=== PATIENT | male | born 1965 | race Caucasian/White ===

== ENCOUNTER → 2017-01-17 | Outpatient (CLI) | payer OTHER ==
[~2017-01-17] MED LIST: ALPR1TAB3 PO; BUPR150T3 PO; ESCI20TA PO; LOSA25TA PO; losartan potassium PO
--- NOTE | 2017-01-18 20:03 | EKG ---
Date Performed: 01/17/2017 Time Performed: 12:07:32 PTAGE: 51 years EKG: Atrial fibrillation with RVR Left axis deviation Inferior infarct - age undetermined Abnorm al ECG NO PREVIOUS TRACING DOCTOR: Sha Hawkins Interpretating Date/Time 01/18/2017 20:03:22
== END ==
LOC: HCAV 11:53
PROVIDERS: ATTEND Family Medicine
DX: R06.09 Other forms of dyspnea (principal)
CPT/HCPCS: 93005

== ENCOUNTER 2017-01-19 04:39 | Inpatient (IN) | payer OTHER ==
[~2017-01-19] VITALS: Ht 180.3 cm; Wt 140.0 kg
[2017-01-19] VITALS (28 sets, daily range): BP systolic 86–177; BP diastolic 50–98; PULSE 67–158; RESP 16–24; TEMP 97.9–98.8; O2SAT 93–96
[2017-01-19] MEDS ORDERED: IOHEXOL 350 MG/ML 10 ML VIAL (for RAD DIAG) IVCONTRAST ONE (04:40)
[2017-01-19] MEDS ORDERED: ASPIRIN 81 MG CHEW TAB PO ONE (05:15)
[2017-01-19] MEDS ORDERED: SODIUM CHLORIDE 0.9% FLUSH 10 ML FLUSH IVF PRN (05:15)
[2017-01-19] MEDS ORDERED: DILTIAZEM HCL 25 MG/5 ML VIAL IV ONE ×2 (05:15→06:00)
[2017-01-19] MEDS ORDERED: DILTIAZEM INJ 125 MG in SODIUM CHLORIDE 0.9% INJ 100 ML IV PRN (05:15)
--- NOTE | 2017-01-19 05:21 | PD ---
HPI Chief Complaint: Respiratory Distress Time Seen by Provider: 05:01 Travel History International Travel<30 days: No Contact w/Intl Traveler<30days: No Traveled to known affect area: No History of Present Illness HPI The patient is a 51-year-old male who presents to the emergency department for 1 week of shortness of breath and insomnia. The patient has a one-week history of difficulty sleeping secondary to shortness of breath and diaphoresis. The patient states he will awaken in the morning with shortness of breath and also notes that he is somewhat diaphoretic. The patient does have a history of sleep apnea, has been using a CPap machine since last March with good results. However, over the last week he has had difficulty sleeping with the CPAP in place secondary to shortness of breath. The patient also complains of occasional chest tightness and heaviness with his shortness of breath, denies any nausea or vomiting. The patient had an outpatient EKG yesterday that was ordered by his primary physician, Dr. Joey Haro. The patient does have a history of previous cardiac catheterization several years ago up [place], denies any known history of coronary artery disease. He does have a history of hypertension and recently had his Norvasc discontinued secondary to lower extremity edema, but cannot recall the name of his new medication. He denies any known history of congestive heart failure, pulmonary embolism, DVT, or arrhythmia. 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 Symptoms are moderate, there are no alleviating or exacerbating factors. PFSH Past Medical History Medical History: Denies Significant Hx Anxiety: Yes Cardiac Catheterization: Yes (2007) Cardiomyopathy: Yes (was told recently that he had an enlarged heart-needs an echo (01/19)) GERD: Yes Hypertension: Yes Respiratory: Yes (pt gets SOB w/movement ) Sleep Apnea: Yes Tetanus Vaccination: Unknown Past Surgical History Surgical History: No Previous Surgery Appendectomy: Yes Gynecologic Surgery: Yes (vasectomy) Social History Alcohol Use: No Tobacco Use: No Substance Use: No Allergies-Medications (Allergen,Severity, Reaction): Coded Allergies: No Known Allergies (Unverified , 01/19/17) Reported Meds & Prescriptions Reported Meds & Active Scripts Active Reported Alprazolam 1 Mg Tab 1 Mg PO QHS PRN Escitalopram (Escitalopram Oxalate) 20 Mg Tab 20 Mg PO QHS Bupropion HCl ER 24 HR (Bupropion HCl) 150 Mg Tab 150 Mg PO DAILY [losartan potassium] 25 Mg PO DAILY Review of Systems Except as stated in HPI: all other systems reviewed are Neg General / Constitutional: No: Fever Cardiovascular: Positive: Chest Pain or Discomfort, Tachycardia, Diaphoresis Respiratory: Positive: Shortness of Breath Gastrointestinal: No: Nausea, Vomiting, Abdominal Pain Musculoskeletal: Positive: Edema Physical Exam Narrative GENERAL: Awake, alert, pleasant 51-year-old male who appears his stated age and is slightly diaphoretic. SKIN: Focused skin assessment warm, slightly diaphoretic. HEAD: Atraumatic. Normocephalic. EYES: Pupils equal and round. No scleral icterus. No injection or drainage. ENT: No nasal bleeding or discharge. Mucous membranes pink and moist. NECK: Trachea midline. No JVD. CARDIOVASCULAR: Irregularly irregular and tachycardic with a heart rate in the 170s. RESPIRATORY: No accessory muscle use. Minimally diminished breath sounds in the bases. GASTROINTESTINAL: Abdomen soft, obese, no rebound tenderness. MUSCULOSKELETAL: No obvious deformities. No clubbing. No cyanosis. Trace lower extremity pitting edema. NEUROLOGICAL: Awake and alert. No obvious cranial nerve deficits. Motor grossly within normal limits. Normal speech. PSYCHIATRIC: Appropriate mood and affect; insight and judgment normal. Data Data Last Documented VS Vital Signs Date Time Temp Pulse Resp B/P (MAP) Pulse Ox O2 Delivery O2 Flow Rate FiO2 01/19/17 06:29 119 20 122/75 (91) 96 Nasal Cannula 2.00 01/19/17 04:43 97.9 Orders Orders Electrocardiogram (01/19/17 05:09) B-Type Natriuretic Peptide (01/19/17 05:09) Ckmb (Isoenzyme) Profile (01/19/17 05:09) Complete Blood Count With Diff (01/19/17 05:09) Comprehensive Metabolic Panel (01/19/17 05:09) Magnesium (Mg) (01/19/17 05:09) Prothrombin Time / Inr (Pt) (01/19/17 05:09) Act Partial Throm Time (Ptt) (01/19/17 05:09) Troponin I (01/19/17 05:09) Chest, Single Ap (01/19/17 05:09) Ecg Monitoring (01/19/17 05:09) Bilateral Bp Monitoring (01/19/17 05:09) Iv Access Insert/Monitor (01/19/17 05:09) Oximetry (01/19/17 05:09) Oxygen Administration (01/19/17 05:09) Aspirin Chew (Aspirin Chew) (01/19/17 05:15) Sodium Chloride 0.9% Flush (Ns Flush) (01/19/17 05:15) Diltiazem Inj (Cardizem Inj) (01/19/17 05:15) Diltiazem Inj (Cardizem Inj) (01/19/17 05:15) D-Dimer (01/19/17 05:09) Thyroid Stimulating Hormone (01/19/17 05:09) Diltiazem Inj (Cardizem Inj) (01/19/17 06:00) Sodium Chlorid 0.9% 500 Ml Inj (Ns 500 M (01/19/17 06:00) Ct Pulmonary Angiogram (01/19/17 ) CKMB (01/19/17 05:20) CKMB% (01/19/17 05:20) Admit Order (Ed Use Only) (01/19/17 06:33) Admit To Inpatient (01/19/17 ) Vital Signs (Adult) Q4H (01/19/17 06:34) Activity Oob With Assistance (01/19/17 06:34) Intermediate Designer / Telemetry .CONTINUOUS (01/19/17 06:34) Diet Heart Healthy (01/19/17 Breakfast) Sodium Chloride 0.9% Flush (Ns Flush) (01/19/17 06:45) Sodium Chloride 0.9% Flush (Ns Flush) (01/19/17 09:00) Basic Metabolic Panel (Bmp) (01/20/17 06:00) Complete Blood Count With Diff (01/20/17 06:00) Creatine Kinase (Cpk) (01/19/17 11:30) Creatine Kinase (Cpk) (01/19/17 17:30) Troponin I (01/19/17 11:30) Troponin I (01/19/17 17:30) Electrocardiogram (01/19/17 11:30) Electrocardiogram (01/19/17 17:30) Naloxone Inj (Narcan Inj) (01/19/17 06:45) Inpatient Certification (01/19/17 ) Labs Laboratory Tests Test 01/19/17 05:20 White Blood Count 10.5 TH/MM3 Red Blood Count 5.65 MIL/MM3 Hemoglobin 14.9 GM/DL Hematocrit 45.7 % Mean Corpuscular Volume 80.8 FL Mean Corpuscular Hemoglobin 26.4 PG Mean Corpuscular Hemoglobin Concent 32.6 % Red Cell Distribution Width 15.6 % Platelet Count 191 TH/MM3 Mean Platelet Volume 8.9 FL Neutrophils (%) (Auto) 74.4 % Lymphocytes (%) (Auto) 16.7 % Monocytes (%) (Auto) 6.9 % Eosinophils (%) (Auto) 1.5 % Basophils (%) (Auto) 0.5 % Neutrophils # (Auto) 7.8 TH/MM3 Lymphocytes # (Auto) 1.8 TH/MM3 Monocytes # (Auto) 0.7 TH/MM3 Eosinophils # (Auto) 0.2 TH/MM3 Basophils # (Auto) 0.1 TH/MM3 CBC Comment DIFF FINAL Differential Comment Prothrombin Time 12.0 SEC Prothromb Time International Ratio 1.1 RATIO Activated Partial Thromboplast Time 23.7 SEC D-Dimer Quantitative (PE/DVT) 1.13 MG/L FEU Blood Urea Nitrogen 15 MG/DL Creatinine 1.03 MG/DL Random Glucose 86 MG/DL Total Protein 6.5 GM/DL Albumin 3.3 GM/DL Calcium Level 8.7 MG/DL Magnesium Level 2.0 MG/DL Alkaline Phosphatase 79 U/L Aspartate Amino Transf (AST/SGOT) 70 U/L Alanine Aminotransferase (ALT/SGPT) 125 U/L Total Bilirubin 1.0 MG/DL Sodium Level 141 MEQ/L Potassium Level 3.8 MEQ/L Chloride Level 109 MEQ/L Carbon Dioxide Level 23.5 MEQ/L Anion Gap 9 MEQ/L Estimat Glomerular Filtration Rate 76 ML/MIN Total Creatine Kinase 298 U/L Creatine Kinase MB 8.9 NG/ML Troponin I 0.09 NG/ML B-Type Natriuretic Peptide 233 PG/ML Thyroid Stimulating Hormone 3rd Gen 1.980 uIU/ML MDM Medical Decision Making Medical Screen Exam Complete: Yes Emergency Medical Condition: Yes Medical Record Reviewed: Yes Interpretation(s) EKG reveals atrial fibrillation with RVR with a rate in the 170s. Last Impressions Chest X-Ray 01/19/17 [id number] Signed Impressions: Service Date/Time: December 05:45 - CONCLUSION: 1. Basilar atelectasis. No significant effusion. Arsenio Amaya MD Laboratory Tests Test 01/19/17 05:20 White Blood Count 10.5 TH/MM3 Red Blood Count 5.65 MIL/MM3 Hemoglobin 14.9 GM/DL Hematocrit 45.7 % Mean Corpuscular Volume 80.8 FL Mean Corpuscular Hemoglobin 26.4 PG Mean Corpuscular Hemoglobin Concent 32.6 % Red Cell Distribution Width 15.6 % Platelet Count 191 TH/MM3 Mean Platelet Volume 8.9 FL Neutrophils (%) (Auto) 74.4 % Lymphocytes (%) (Auto) 16.7 % Monocytes (%) (Auto) 6.9 % Eosinophils (%) (Auto) 1.5 % Basophils (%) (Auto) 0.5 % Neutrophils # (Auto) 7.8 TH/MM3 Lymphocytes # (Auto) 1.8 TH/MM3 Monocytes # (Auto) 0.7 TH/MM3 Eosinophils # (Auto) 0.2 TH/MM3 Basophils # (Auto) 0.1 TH/MM3 CBC Comment DIFF FINAL Differential Comment Prothrombin Time 12.0 SEC Prothromb Time International Ratio 1.1 RATIO Activated Partial Thromboplast Time 23.7 SEC D-Dimer Quantitative (PE/DVT) 1.13 MG/L FEU Blood Urea Nitrogen 15 MG/DL Creatinine 1.03 MG/DL Random Glucose 86 MG/DL Total Protein 6.5 GM/DL Albumin 3.3 GM/DL Calcium Level 8.7 MG/DL Magnesium Level 2.0 MG/DL Alkaline Phosphatase 79 U/L Aspartate Amino Transf (AST/SGOT) 70 U/L Alanine Aminotransferase (ALT/SGPT) 125 U/L Total Bilirubin 1.0 MG/DL Sodium Level 141 MEQ/L Potassium Level 3.8 MEQ/L Chloride Level 109 MEQ/L Carbon Dioxide Level 23.5 MEQ/L Anion Gap 9 MEQ/L Estimat Glomerular Filtration Rate 76 ML/MIN Total Creatine Kinase 298 U/L Creatine Kinase MB 8.9 NG/ML Troponin I 0.09 NG/ML B-Type Natriuretic Peptide 233 PG/ML Thyroid Stimulating Hormone 3rd Gen 1.980 uIU/ML CT pulmonary angiogram is negative for PE. Small effusions with groundglass opacity characteristic of mild edema. There is also peribronchial thickening. Differential Diagnosis Differential diagnosis includes new onset congestive heart failure, atrial fibrillation with RVR, pulmonary embolism, hyperthyroidism, electrolyte abnormality, sleep apnea, acute coronary syndrome. Narrative Course IV was established, labs are drawn and sent, and the patient was placed on cardiac telemetry monitoring and continuous pulse oximetry monitoring. EKG was ordered and interpreted. Chest x-ray was obtained. The patient was noted to be in atrial fibrillation with RVR. This is new onset atrial fibrillation for the patient, he was administered Cardizem 20 mg intravenously and placed on a Cardizem drip. TSH and d-dimer were sent to lab. The chest x-ray reveals atelectasis, no obvious effusion. D-dimer was elevated at 1.13, therefore, CT pulmonary angiogram was ordered to rule out underlying pulmonary embolism. The patient continued to have A. fib with RVR with a rate that varied between 1:30 and 150, therefore, was administered a second dose of Cardizem. The patient will be admitted to the medical service, [facility], on a Cardizem drip. Therefore, the on-call medical service was paged for admission. The patient's troponin was positive at 0.09, may be rate related secondary to new onset A. fib with RVR. The patient did receive aspirin. A call was placed to [facility] for admission. The CT pulmonary angiogram will be evaluated in the emergency department prior to the patient going to the floor in case the patient needs further anticoagulation. CT pulmonary angiogram was negative. Patient will be admitted to [facility]. Critical Care Narrative Aggregate critical care time was 40 minutes. Time to perform other separately billable procedures was not included in the critical care time. My time did not include minutes spent treating any other patients simultaneously or on activities that did not directly contribute to the patient's treatment. The services I provided to this patient were to treat and/or prevent clinically significant deterioration that could result in: Pulmonary edema, congestive heart failure, arrhythmia, hypoxia, . I provided critical care services requiring my management, as noted below: Chart data review, documentation time, medication orders and management, vital sign assessments/reviewing monitor data, ordering and reviewing lab tests, ordering and interpreting/reviewing x-rays and diagnostic studies, care of the patient and discussion of the patient with the admitting physicians. Physician Communication Physician Communication The on-call medical service was paged for admission. Diagnosis Primary Impression: Atrial fibrillation with RVR Additional Impression: Elevated troponin Admitting Information Admitting Physician Requests: Admit Condition: Stable Fawad Garcias MD Jan 19, 2017 05:21
[2017-01-19 05:34] LABS: AUTOMATED NEUTROPHIL # 7.8 TH/MM3 (1.8-7.7); BASOPHIL # 0.1 TH/MM3 (0-0.2); BASOPHIL % 0.5 % (0.0-2.0); EOSINOPHIL # 0.2 TH/MM3 (0-0.4); EOSINOPHIL % 1.5 % (0.0-4.0); HEMATOCRIT 45.7 % (39.0-51.0); HEMO FLAGS DIFF FINAL; LYMPH % 16.7 % (9.0-44.0); LYMPHOCYTE # 1.8 TH/MM3 (1.0-4.8); MEAN CELL VOLUME 80.8 FL (80.0-100.0); MEAN CORPUSCULAR HEMOGLOBIN 26.4 PG (27.0-34.0); MEAN CORPUSCULAR HGB CONC 32.6 % (32.0-36.0); MONO % 6.9 % (0.0-8.0); NEUT % 74.4 % (16.0-70.0); PLATELET COUNT 191 TH/MM3 (150-450); RED BLOOD COUNT 5.65 MIL/MM3 (4.50-5.90); RED CELL DISTRIBUTION WIDTH 15.6 % (11.6-17.2); WHITE BLOOD COUNT 10.5 TH/MM3 (4.0-11.0)
[2017-01-19 05:55] LABS: APTT (PATIENT) 23.7 SEC (24.3-30.1); INTERNATIONAL NORMALIZED RATIO 1.1 RATIO
--- NOTE | 2017-01-19 05:56 | RADRPT ---
EXAM DATE/TIME: 01/19/2017 05:45 [facility] COMPARISON: No previous studies available for comparison. INDICATIONS : Shortness of breath. MEDICAL HISTORY : Hypertension. SURGICAL HISTORY : None. ENCOUNTER: Initial ACUITY: 1 day PAIN SCORE: 0/10 LOCATION: Bilateral chest FINDINGS: A single view of the chest demonstrates mild cardiomegaly. Tortuous aorta. Basilar density most joshua cteristic atelectasis. CONCLUSION: 1. Basilar atelectasis. No significant effusion. Arsenio Amaya MD on January 19, 2017 at 5:51 Board Certified Radiologist. This report was verified electronically.
[2017-01-19] MEDS ORDERED: SODIUM CHLORID 0.9% 500 ML INJ 500 ML IV ONE (06:00)
[2017-01-19 06:05] LABS: ANION GAP 9 MEQ/L (5-15); AST (GOT) 70 U/L (15-37); BICARBONATE 23.5 MEQ/L (21.0-32.0); BLOOD UREA NITROGEN 15 MG/DL (7-18); CHLORIDE 109 MEQ/L (98-107); GLOMERULAR FILTRATION RATE 76 ML/MIN (>89); POTASSIUM 3.8 MEQ/L (3.5-5.1); SODIUM (NA) 141 MEQ/L (136-145)
[2017-01-19 06:06] LABS: ALT (GPT) 125 U/L (12-78)
[2017-01-19 06:15] LABS: ALKALINE PHOSPHATASE 79 U/L (45-117); CREATINE KINASE 298 U/L (39-308)
[2017-01-19 06:28] LABS: CKMB 8.9 NG/ML (0.5-3.6)
[2017-01-19] MEDS ORDERED: SODIUM CHLORIDE 0.9% FLUSH 10 ML FLUSH IV FLUSH PRN (06:45)
[2017-01-19] MEDS ORDERED: NALOXONE HCL 0.4 MG/ML AMP IV PRN (06:45)
[2017-01-19] MEDS ORDERED: BUPR150T3 PO (06:53)
[2017-01-19] MEDS ORDERED: losartan potassium PO (06:53)
[2017-01-19] MEDS ORDERED: ALPR1TAB3 PO (06:53)
[2017-01-19] MEDS ORDERED: ESCI20TA PO (06:53)
--- NOTE | 2017-01-19 06:55 | RADRPT ---
EXAM DATE/TIME: 01/19/2017 06:36 [facility] COMPARISON: No previous studies available for comparison. INDICATIONS : Shortness of breath and lower extremity swelling. IV CONTRAST: 75 cc Omnipaque 350 (iohexol) IV RADIATION DOSE: 23.25 CTDIvol (mGy) MEDICAL HISTORY : Hypertension. A-Fib. SURGICAL HISTORY : Cardiac cath. ENCOUNTER: Initial ACUITY: 1 day PAIN SCALE: 0/10 LOCATION: Bilateral chest TECHNIQUE: Volumetric scanning of the chest was performed using a pulmonary embolism protocol MIP images were re constructed. Using automated exposure control and adjustment of the mA and/or kV according to patien t size, radiation dose was kept as low as reasonably achievable to obtain optimal diagnostic quality images. DICOM format image data is available electronically for review and comparison. Follow-up recommendations for detected pulmonary nodules are based at a minimum on nodule size and pa tient risk factors according to Fleischner Society Guidelines. FINDINGS: No filling defects identified to suggest pulmonary embolic disease. Small bilateral pleural effusions are present. There is patchy airspace disease in the lungs, especia lly at the lung bases with septal thickening. There is also some peribronchial thickening. CONCLUSION: 1. Negative for pulmonary embolism. Small effusions with ground glass opacity characteristic of mild edema. There is also peribronchial thickening. Arsenio Amaya MD on January 19, 2017 at 6:46 Board Certified Radiologist. This report was verified electronically.
--- NOTE | 2017-01-19 08:18 | EKG ---
Date Performed: 01/19/2017 Time Performed: 05:33:42 PTAGE: 51 years EKG: ATRIAL FIBRILLATION WITH RAPID VENTRICULAR RESPONSE INCOMPLETE RIGHT BUNDLE BRANCH BLOCK PO SSIBLE INFERIOR MYOCARDIAL INFARCTION ABNORMAL ECG PREVIOUS TRACING : 01/17/2017 12.07 No significant change from previous tracing noted. DOCTOR: Will Kan Interpretating Date/Time 01/19/2017 08:16:58
--- NOTE | 2017-01-19 08:18 | EKG ---
Date Performed: 01/19/2017 Time Performed: 04:49:30 PTAGE: 51 years EKG: ATRIAL FIBRILLATION WITH RAPID VENTRICULAR RESPONSE INCOMPLETE RIGHT BUNDLE BRANCH BLOCK PO SSIBLE INFERIOR MYOCARDIAL INFARCTION ABNORMAL ECG NO PREVIOUS TRACING DOCTOR: Will Kan Interpretating Date/Time 01/19/2017 08:17:47
[2017-01-19] MEDS: SODIUM CHLORIDE 0.9% FLUSH 10 ML FLUSH IV FLUSH SCH ×2 (08:52→21:25)
--- NOTE | 2017-01-19 14:51 | HHI.HP ---
HPI Service [facility] Primary Care Physician Joey Mckoy Jr, MD Admission Diagnosis new onset atrial fibrillation with RVR, elevated troponin Diagnoses: (1) Essential hypertension (2) Paroxysmal atrial fibrillation with rapid ventricular response (3) Elevated troponin Chief Complaint: Shortness of breath Travel History International Travel<30 Days: No Contact w/Intl Traveler <30 Da: No Traveled to Known Affected Are: No History of Present Illness 51-year-old male with a history of hypertension, presented to the ED early this morning for evaluation of ongoing or worsening symptoms of shortness of breath 1 week duration associated with chest pressure without any pain. Patient states, around 3 AM he was having significant difficulty breathing and decided to come to the ED. This has been an ongoing problem for which patient PCP was supposed to order a 2-D echo. While in emergency department, patient was found in A. fib. This appeared to be a new diagnosis for patient and he currently denies any heart palpitation. CTA was negative for PE and chest x- ray did not reveal any pulmonary congestion. Patient had elevated cardiac enzyme and a mildly elevated BNP of 233. He denies any GI bleed. Review of Systems Except as stated in HPI: all other systems reviewed are Neg Past Family Social History Past Medical History Anxiety: Yes Cardiac Catheterization: Yes (2007) Cardiomyopathy: Yes (was told recently that he had an enlarged heart-needs an echo (01/19)) GERD: Yes Hypertension: Yes Respiratory: Yes (pt gets SOB w/movement ) Sleep Apnea: Yes Past Surgical History Appendectomy: Yes Gynecologic Surgery: Yes (vasectomy) Reported Medications Alprazolam 1 Mg Tab 1 Mg PO QHS PRN Escitalopram (Escitalopram Oxalate) 20 Mg Tab 20 Mg PO QHS Bupropion HCl ER 24 HR (Bupropion HCl) 150 Mg Tab 150 Mg PO DAILY [losartan potassium] 25 Mg PO DAILY Allergies: Coded Allergies: No Known Allergies (Unverified , 01/19/17) Family History Father has history of hypertension Social History Alcohol Use: No Tobacco Use: No Substance Use: No Physical Exam Vital Signs Vital Signs Date Time Temp Pulse Resp B/P (MAP) Pulse Ox O2 Delivery O2 Flow Rate FiO2 01/19/17 12:00 98.6 82 18 104/69 (81) 93 01/19/17 12:00 107 01/19/17 11:00 110 01/19/17 10:00 114 01/19/17 09:30 103 01/19/17 09:30 97.9 110 18 116/83 (94) 94 01/19/17 09:20 01/19/17 09:00 118 16 115/60 (78) 95 Room Air 01/19/17 08:30 118 16 131/86 (101) 95 Room Air 01/19/17 08:15 135 16 107/73 (84) 95 Room Air 01/19/17 08:00 112 16 95/69 (78) 95 Room Air 01/19/17 07:30 95 Room Air 01/19/17 07:30 141 16 121/66 (84) 95 Room Air 01/19/17 06:53 106 16 119/79 (92) 96 Nasal Cannula 2.00 01/19/17 06:29 119 20 122/75 (91) 96 Nasal Cannula 2.00 01/19/17 05:28 145 24 137/77 (97) 94 Nasal Cannula 2.00 01/19/17 05:20 158 20 177/98 (124) 95 Nasal Cannula 2.00 01/19/17 05:20 94 Nasal Cannula 2.00 01/19/17 04:43 97.9 100 20 127/86 (100) 95 Room Air Physical Exam GENERAL: This is a well-nourished, well-developed obese patient, in no apparent distress. SKIN: No rashes, ecchymoses or lesions. Cool and dry. HEAD: Atraumatic. Normocephalic. No temporal or scalp tenderness. EYES: Pupils equal round and reactive. Extraocular motions intact. No scleral icterus. No injection or drainage. ENT: Nose without bleeding, purulent drainage or septal hematoma. Throat without erythema, tonsillar hypertrophy or exudate. Uvula midline. Airway patent. NECK: Trachea midline. No JVD or lymphadenopathy. Supple, nontender, no meningeal signs. CARDIOVASCULAR: Irregular Regular rate and rhythm without murmurs, gallops, or rubs. RESPIRATORY: Clear to auscultation. Breath sounds equal bilaterally. No wheezes , rales, or rhonchi. GASTROINTESTINAL: Abdomen soft, non-tender, nondistended. No hepato-splenomegaly , or palpable masses. No guarding. MUSCULOSKELETAL: Extremities without clubbing, cyanosis, or edema. No joint tenderness, effusion, or edema noted. No calf tenderness. Negative Homans sign bilaterally. NEUROLOGICAL: Awake and alert. Cranial nerves II through XII intact. Motor and sensory grossly within normal limits. Five out of 5 muscle strength in all muscle groups. Normal speech. Laboratory Laboratory Tests Test 01/19/17 05:20 01/19/17 11:56 White Blood Count 10.5 Red Blood Count 5.65 Hemoglobin 14.9 Hematocrit 45.7 Mean Corpuscular Volume 80.8 Mean Corpuscular Hemoglobin 26.4 Mean Corpuscular Hemoglobin Concent 32.6 Red Cell Distribution Width 15.6 Platelet Count 191 Mean Platelet Volume 8.9 Neutrophils (%) (Auto) 74.4 Lymphocytes (%) (Auto) 16.7 Monocytes (%) (Auto) 6.9 Eosinophils (%) (Auto) 1.5 Basophils (%) (Auto) 0.5 Neutrophils # (Auto) 7.8 Lymphocytes # (Auto) 1.8 Monocytes # (Auto) 0.7 Eosinophils # (Auto) 0.2 Basophils # (Auto) 0.1 CBC Comment DIFF FINAL Differential Comment Prothrombin Time 12.0 Prothromb Time International Ratio 1.1 Activated Partial Thromboplast Time 23.7 D-Dimer Quantitative (PE/DVT) 1.13 Blood Urea Nitrogen 15 Creatinine 1.03 Random Glucose 86 Total Protein 6.5 Albumin 3.3 Calcium Level 8.7 Magnesium Level 2.0 Alkaline Phosphatase 79 Aspartate Amino Transf (AST/SGOT) 70 Alanine Aminotransferase (ALT/SGPT) 125 Total Bilirubin 1.0 Sodium Level 141 Potassium Level 3.8 Chloride Level 109 Carbon Dioxide Level 23.5 Anion Gap 9 Estimat Glomerular Filtration Rate 76 Total Creatine Kinase 298 227 Creatine Kinase MB 8.9 Troponin I 0.09 0.09 B-Type Natriuretic Peptide 233 Thyroid Stimulating Hormone 3rd Gen 1.980 Result Diagram: 01/19/17 0520 01/19/17 0520 Imaging Last Impressions Chest X-Ray 01/19/17 0500 Signed Impressions: Service Date/Time: December 05:45 - CONCLUSION: 1. Basilar atelectasis. No significant effusion. Arsenio Amaya MD CT Angiography 01/19/17 0000 Signed Impressions: Service Date/Time: December 06:36 - CONCLUSION: 1. Negative for pulmonary embolism. Small effusions with ground glass opacity characteristic of mild edema. There is also peribronchial thickening. Arsenio Amaya MD Caprini VTE Risk Assessment Caprini VTE Risk Assessment: No/Low Risk (score <= 1) Caprini Risk Assessment Model Point Value = 1 Point Value = 2 Point Value = 3 Point Value = 5 Age 41-60 Minor surgery BMI > 25 kg/m2 Swollen legs Varicose veins or History of unexplained or recurrent spontaneous Oral contraceptives or hormone replacement Sepsis (< 1 month) Serious lung disease, including pneumonia (< 1 month) Abnormal pulmonary function Acute myocardial infarction Congestive heart failure (< 1 month) History of inflammatory bowel disease Medical patient at bed rest Age 61-74 Arthroscopic surgery Major open surgery (> 45 min) Laparoscopic surgery (> 45 min) Malignancy Confined to bed (> 72 hours) Immobilizing plaster cast Central venous access Age >= 75 History of VTE Family history of VTE Factor V Leiden Prothrombin [id number] Lupus anticoagulant Anticardiolipin antibodies Elevated serum homocysteine Heparin-induced thrombocytopenia Other congenital or acquired thrombophilia Stroke (< 1 month) Elective arthroplasty Hip, pelvis, or leg fracture Acute spinal cord injury (< 1 month) Prophylaxis Regimen Total Risk Factor Score Risk Level Prophylaxis Regimen 0-1 Low Early ambulation 2 Moderate Order ONE of the following: *Sequential Compression Device (SCD) *Heparin 5000 units SQ BID 3-4 Higher Order ONE of the following medications: *Heparin 5000 units SQ TID *Enoxaparin/Lovenox 40 mg SQ daily (WT < 150 kg, CrCl > 30 mL/min) *Enoxaparin/Lovenox 30 mg SQ daily (WT < 150 kg, CrCl > 10-29 mL/min) *Enoxaparin/Lovenox 30 mg SQ BID (WT < 150 kg, CrCl > 30 mL/min) AND/OR *Sequential Compression Device (SCD) 5 or more Highest Order ONE of the following medications: *Heparin 5000 units SQ TID (Preferred with Epidurals) *Enoxaparin/Lovenox 40 mg SQ daily (WT < 150 kg, CrCl > 30 mL/min) *Enoxaparin/Lovenox 30 mg SQ daily (WT < 150 kg, CrCl > 10-29 mL/min) *Enoxaparin/Lovenox 30 mg SQ BID (WT < 150 kg, CrCl > 30 mL/min) AND *Sequential Compression Device (SCD) Assessment and Plan Problem List: (1) Paroxysmal atrial fibrillation with rapid ventricular response ICD Code: I48.0 - Paroxysmal atrial fibrillation (2) Essential hypertension ICD Code: I10 - Essential (primary) hypertension (3) Elevated troponin ICD Code: R74.8 - Abnormal levels of other serum enzymes Status: Acute Assessment and Plan 51-year-old man with Paroxysmal atrial fibrillation with RVR Continue ACS ruled out per protocol with serial cardiac enzyme and EKGs Thyroid dysfunction ruled out with normal TSH Continue Cardizem drip and start aspirin 81 mg daily Check 2-D echo, lipid profile and Lexiscan stress in a.m. Consult cardiology Dyspnea Mildly elevated BNP Chest x-ray noted and review by me with no effusion CTA noted and review by me with no PE Check 2-D echo and continue ACS rule out per protocol Cardiomyopathy 2-D echo pending Lexiscan stress test in a.m. Cardiology consultation pending Essential hypertension Currently on Cardizem drip Obstructive sleep apnea Okay for patient to use on BiPAP DVT prophylaxis: Bilateral SCDs Code Status Full code Discussed Condition With Patient Physician Certification 2 Midnight Certification Type: Admission for Inpatient Services Order for Inpatient Services The services are ordered in accordance with Medicare regulations or non- Medicare payer requirements, as applicable. In the case of services not specified as inpatient-only, they are appropriately provided as inpatient services in accordance with the 2-midnight benchmark. Estimated LOS (days): 2 days is the estimated time the patient will need to remain in the hospital, assuming treatment plan goals are met and no additional complications. Post-Hospital Plan: Not yet determined Bhanu Villagomez MD Jan 19, 2017 14:51
[2017-01-19] MEDS ORDERED: ZOLPIDEM TARTRATE 5 MG TAB PO PRN (15:00)
[2017-01-19] MEDS: FUROSEMIDE 40 MG TAB PO SCH (16:19)
[2017-01-19] MEDS: ALPRAZolam 1 MG TAB PO PRN (16:19)
--- NOTE | 2017-01-19 17:06 | MB ---
cc: KAMALA MEDINA DATE OF CONSULTATION 01/19/17 HISTORY OF PRESENT ILLNESS This is a 51-year-old gentleman who is admitted to the hospital for shortness of breath. This began approximately one week prior, he did note that 1-2 weeks prior to that he was waking up in the morning with some diaphoresis. Shortness of breath has progressed. He was seen by his primary care physician on Monday. A chest x-ray was done which apparently was unremarkable and a 2-D echo was scheduled. Today. However, his shortness of breath became worse and he came to the emergency department. While there, he was found to have atrial fib with a rapid response and subsequently has been admitted. No chest pain has been present. He denies any lightheadedness or dizziness. He feels no palpitations. He does have history of having had a heart catheterization in 2007 at which time he was not put on any medications and basically told there were no significant problems. The patient has a history of sleep apnea and has been faithful in using his C-PAP machine. Risk factors for coronary disease are significant only for hypertension. He was previously on amlodipine with problems with ankle edema which resolved after beginning valsartan and hydrochlorothiazide. He also suffers from anxiety, denies history of diabetes. SOCIAL HISTORY He is a nonsmoker. He rarely drinks. He does not use recreational drugs. ALLERGIES No allergies were present. PHYSICAL EXAMINATION GENERAL: He is awake and alert. VITAL SIGNS: His blood pressure was 116/70, pulse is approximately 100-110 and irregular. NECK: There was no neck vein distension. LUNGS: Revealed some mild crackles in the bases. No wheezes or rhonchi were present. CARDIOVASCULAR: Irregularly irregular rhythm with no significant murmur noted. EXTREMITIES: Trace pedal edema. LABORATORY DATA Troponin of 0.09 with a repeat the same. His transaminases are mildly elevated. His TSH was within normal limits. ASSESSMENT The patient has atrial fib with rapid response. He has been started on a Cardizem drip with fair control of his heart rate. At this point in time, we will continue his Valsartan and begin metoprolol 100 mg twice a day with an effort to try to wean his Cardizem. An echocardiogram and Lexiscan have been ordered. We await with interest both of those tests. Further recommendations will pend his outcome from his metoprolol as well as the echo and a Lexiscan. MD NARCISA Lindsey/ /3:40 PM /4:52 PM
[2017-01-19] MEDS ORDERED: METOPROLOL TARTRATE 100 MG TAB PO SCH (21:00)
[2017-01-19] MEDS: ESCITALOPRAM OXALATE 20 MG TAB PO SCH (21:25)
[2017-01-20] VITALS (23 sets, daily range): BP systolic 87–128; BP diastolic 53–73; PULSE 60–141; RESP 20–35; TEMP 97.3–98.8; O2SAT 85–100
[2017-01-20] MEDS ORDERED: HEPARIN-D5W 25,000 U/250 ML 250 ML IV PRN (00:41)
--- NOTE | 2017-01-20 00:43 | RADRPT ---
EXAM DATE/TIME: 01/20/2017 00:29 [facility] COMPARISON: CHEST SINGLE AP, January 19, 2017, 5:45. INDICATIONS : Respiratory distress. MEDICAL HISTORY : Hypertension. SURGICAL HISTORY : None. ENCOUNTER: Subsequent ACUITY: 1 day PAIN SCORE: 0/10 LOCATION: Bilateral chest FINDINGS: A single view of the chest demonstrates the lungs to be symmetrically aerated without evidence of mas s, infiltrate or effusion except for bibasilar stable atelectasis. The cardiomediastinal contours ar e unremarkable. Osseous structures are intact. CONCLUSION: Stable examination. Rob Gerber MD on January 20, 2017 at 0:41 Board Certified Radiologist. This report was verified electronically.
[2017-01-20] MEDS ORDERED: HEPARIN SODIUM - IV 10,000 UNITS/10 ML VIAL IV ONE (00:45)
--- NOTE | 2017-01-20 00:45 | HHI.PR ---
Addendum to Inpatient Note Addendum Reason: Additional Documentation Additional Information Rapid Response was called on this patient because pt was found to be hypotensive. per pt's nurse, pt was c/o of nausea which was why he was checking on patient and on vitals Vitals noted at the times are in the 80s over 40s of blood pressure, with heart rate around 60, oxygen saturation around 94% on 2 L. Came to see patient at the bedside. Chart reviewed. Patient admitted with new onset atrial fibrillation. On Cardizem drip at 15 mics. Patient was also given metoprolol 100 mg by mouth 1 dose tonight while on Cardizem drip. This metoprolol is new to him. He also received Lexapro 20 mg, Ambien 5 mg at the same time as metoprolol. He received Xanax 1 mg at around 4 PM. Patient has had pulmonary angiogram done which is negative today. Upon my arrival, patient is awake, alert, oriented. However he is quite a bit and discomfort. He states his main complaint is that of shortness of breath. Nursing staff was trying to lay him flat for this hypotension. Patient was not able to tolerate this at all. He repeatedly had to sit up because of shortness of breath. On exam, patient is noted to be quite pallor. When asked about this, as this does stated that he was not looking like this previously at all. He was ambulatory to the bathroom, was talking to his , and skin color was not pale as now. Patient's hemoglobin on admission was 14. Heart rate is regular, no murmur appreciated. Lung exam reveals mostly decreased air entry bilaterally. No active wheezing or rales. Abdomen is distended, nontender, no rebound, no guarding. No suprapubic tenderness. Bilateral lower extremities- no calf asymmetry or edema. Morbidly obese. Impression: Hypotension - most likely medication to reduced. No reflex tachycardia noted as patient was on beta blockers. Possible cardiogenic shock Possible acute dislodgment of clots/PE- though quite unlikely because of recent CT pulmonary angiogram being negative today. However patient is quite dyspneic. Nausea/vomiting/diarrhea- reports had diarrhea for about 3 days, nausea and vomiting about twice today. New onset A. fib etiology unclear. Cardiogenic versus volume depletion from nausea vomiting. Elevated troponin Plan: DC antihypertensives. Hold Cardizem drip. Transferred patient to ICU stat. Repeat BPs done in ICU also revealed blood pressures around systolic of 75-90/50 diastolic. Again, patient is not tachycardic. ABG stat. Personally reviewed. Showed respiratory alkalosis secondary to metabolic acidosis with bicarbonate of 14. Give bicarbonate 50 mEq one ampule. Stat labs including electrolytes, CBC, cardiac enzymes and EKGs. Start patient on heparin drip for both management of A. fib/possible non-ST elevation IL/possible PE. Ultrasound of bilateral lower extremities to rule out DVT. Although CT pulmonary angiogram is negative, question whether this acute event could've been from acute dislodgment of lower extremity clots. Chest x-ray does done personally reviewed. No acute changes as compared to previous chest x-ray. However does have prominent pulmonary vasculature. Question whether this could be venous congestion. Consider bedside echo to evaluate for IVC and need of fluid resuscitation. We'll monitor for further episodes of nausea/vomiting/diarrhea. We'll transfer patient to international broadcast music librarian care for further care. Critical care time 30 minutes Jazz Walker MD Jan 20, 2017 00:45
--- NOTE | 2017-01-20 01:02 | HHI.FPPN ---
Addendum to progress note ADDENDUM Reason for addendum: Additonal documentation Additional information Residents called at midnight for [place]ue[place] for this 51 year old male who presented on 01/19 with shortness of breath that began one week prior. He was found to have atrial fibrillation with RVR and was admitted to the hospital for further evaluation and treatment. He was subsequently started on a CArdizem drip and also metoprolol 100 mg bid with an effort to wean Cardizem drip. Roselynt called for hypotension and bradycardia. Patient's blood pressures in the 90's/50's initially with pulse in the 50's, but somewhat variable due to atrial fibrillation. Per nurse, patient has received Cardizem drip currently and Lopressor at 9:30 PM. Patient initially with nausea and vomiting X2, and vital signs checked, which revealed the hypotension and bradycardia. He was initially 94% O2 on room air, but is now on 2L nasal cannula with normal O2 saturation. Upon entry to the room, liter bolus of fluids is already started. Patient appears pale, but is answering questions appropriately. He feels somewhat lightheaded, hot, and diaphoretic. Vitals: 90's/50's, all the way down to 54/42. Pulse: 55 average, but sometimes increases due to A-fib Afebrile 2L nasal cannula, O2 saturation 95% PE: General: Appears pale, somewhat diaphoretic, answering questions appropriately, says he feels hot Skin: Pale appearing, otherwise unremarkable HEENT: No nasal discharge, normocephalic Neck: No JVD CV: RRR, no murmurs Lungs: Crackles in the bases, normal effort, no respiratory distress, on 2L nasal cannula, normal O2 saturation Abdomen: Soft, nontender, nondistended, normal bowel sounds Ext: No edema, no calf tenderness Labs from earlier: Troponins elevated but not trended up, 0.09, 0.09, 0.08 TSH normal BNP slightly elevated 233 D-dimer 1.13, follow up CTA negative for PE Assessment: Patient likely hypotensive from Cardizem and Lopressor, beta gayle toxicity, though differential includes acute heart failure, atrial fibrillation with poor cardiac output, septic shock, hypovolemia, pulmonary embolism (not on prophylactic heparin/Lovenox) Plan: - Stat EKG read, shows left axis deviation, atrial fibrillation with slow ventricular response, bradycardia 50's, no QT prolongation, non-specific ST changes - Liter of fluid, but stopped half way through due to concerns about possible congestive heart failure. - Stat chest x-ray: showing pulmonary congestion that is stable, cardiomegaly, no obvious consolidations - CBC, assess hemoglobin status, hemoccult - Serial troponins and EKG's to rule out new ACS - BNP to assess for acute CHF - Arterial blood gas - Discussed with Dr. Walker, decided to start heparin therapeutically for possible new PE as he was not on prophylactic dosing, only on SCD's - Transfer to the ICU with consultation to Dr. Thomas - Discontinue Diltiazem drip, hold on metoprolol for now - Consider vasopressors, atropine versus epinephrine - Consider glucagon in the context of possible beta gayle toxicity Seen and discussed with Dr. Cameron Discussed with Yaw Sandoval MD R3 Jan 20, 2017 01:02
[2017-01-20 01:12] LABS: BLOOD GAS BASE EXCESS -10.3 mmol/L (-2-2); BLOOD GAS CARBOXYHEMOGLOBIN 1.5 % (0-4); BLOOD GAS HCO3 14 mmol/L (22-26); BLOOD GAS O2 HGB SATURATION 90 % (90-100); BLOOD GAS OXYGEN CONTENT 19.2 Vol % (12.0-20.0); BLOOD GAS PCO2 25 mmHg (38-42); BLOOD GAS PO2 70 mmHg (61-120); BLOOD GAS TOTAL HGB 15.1 G/DL (12.0-16.0); CRITICAL VALUE YES; DRAW SITE RT BRACHIAL; LITER FLOW 2.5 L/M; NUMBER OF ARTERIAL PUNCTURES 2; OXYGEN DEVICE NASAL CANNULA; STAT YES; TEMP CORR TO 98.6
[2017-01-20 01:14] LABS: AUTOMATED NEUTROPHIL # 8.6 TH/MM3 (1.8-7.7); BASOPHIL # 0.1 TH/MM3 (0-0.2); BASOPHIL % 0.6 % (0.0-2.0); EOSINOPHIL # 0.2 TH/MM3 (0-0.4); EOSINOPHIL % 1.7 % (0.0-4.0); HEMATOCRIT 49.7 % (39.0-51.0); HEMO FLAGS DIFF FINAL; LYMPH % 23.4 % (9.0-44.0); LYMPHOCYTE # 2.9 TH/MM3 (1.0-4.8); MEAN CELL VOLUME 83.3 FL (80.0-100.0); MEAN CORPUSCULAR HEMOGLOBIN 25.5 PG (27.0-34.0); MEAN CORPUSCULAR HGB CONC 30.6 % (32.0-36.0); MONO % 5.4 % (0.0-8.0); NEUT % 68.9 % (16.0-70.0); PLATELET COUNT 184 TH/MM3 (150-450); RED BLOOD COUNT 5.96 MIL/MM3 (4.50-5.90); RED CELL DISTRIBUTION WIDTH 16.2 % (11.6-17.2); WHITE BLOOD COUNT 12.5 TH/MM3 (4.0-11.0)
[2017-01-20] MEDS ORDERED: CHLORHEXIDINE GLUCONATE 2 % 1 PACK (2 CLOTHS)(extra cloths) TOPICAL PRN (01:15)
[2017-01-20] MEDS ORDERED: SODIUM BICARBONATE 8.4% INJ 50 MEQ/50 ML SYR IV PUSH ONE ×4 (01:15→13:30)
[2017-01-20] MEDS ORDERED: SODIUM CHLOR 0.9% 250 ML INJ 250 ML IV ONE (01:15)
[2017-01-20 01:34] LABS: BICARBONATE 18.9 MEQ/L (21.0-32.0); POTASSIUM 4.5 MEQ/L (3.5-5.1)
[2017-01-20 01:38] LABS: HDL CHOLESTEROL 33.5 MG/DL (40.0-60.0)
--- NOTE | 2017-01-20 01:51 | PD.CONS ---
HPI Service Critical Care Medicine Consult Requested By Primary Care Physician Joey Mckoy Jr, MD History of Present Illness 51-year-old male with a history of hypertension, presents for evaluation of ongoing and worsening symptoms of shortness of breath 1 week duration associated with chest pressure. Patient states, around 3 AM he was having significant difficulty breathing and decided to come to the ED. This has been an ongoing problem for which patient was supposed to get 2-D echo evaluation as an outpatient. While in emergency department, patient was found to be in A. fib. He denies any previous history of atrial fibrillation, this was also asymptomatic without palpitations or chest pain. CTA was negative for PE and chest x-ray did not reveal any pulmonary congestion. Patient had minimally elevated cardiac enzyme and a mildly elevated BNP of 233. He was started on Cardizem drip for rate control of atrial fibrillation and was admitted to CICU. 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 Review of Systems Constitutional: DENIES: Diaphoretic episodes, Fatigue, Fever, Weight gain, Weight loss, Chills, Dizziness, Change in appetite, Night Sweats Endocrine: DENIES: Heat/cold intolerance, Polydipsia, Polyuria, Polyphagia Eyes: DENIES: Blurred vision, Diplopia, Eye inflammation, Eye pain, Vision loss , Photosensitivity, Double Vision Ears, nose, mouth, throat: DENIES: Tinnitus, Hearing loss, Vertigo, Nasal discharge, Oral lesions, Throat pain, Hoarseness, Ear Pain, Running Nose, Epistaxis, Sinus Pain, Toothache, Odynophagia Respiratory: COMPLAINS OF: Shortness of breath, DENIES: Apneas, Cough, Snoring , Wheezing, Hemoptysis, Sputum production Cardiovascular: COMPLAINS OF: Chest pain, Dyspnea on Exertion, Orthopnea, DENIES: Palpitations, Syncope, PND, Lower Extremity Edema, Claudication Gastrointestinal: DENIES: Abdominal pain, Black stools, Bloody stools, Constipation, Diarrhea, Nausea, Vomiting, Difficulty Swallowing, Anorexia Genitourinary: DENIES: Sexual dysfunction, Urinary frequency, Urinary incontinence, Urgency, Hematuria, Dysuria, Nocturia, Penile Discharge, Testicular Pain, Testicular Swelling Musculoskeletal: DENIES: Joint pain, Muscle aches, Stiffness, Joint Swelling, Back pain, Neck pain Integumentary: DENIES: Abnormal pigmentation, Nail changes, Pruritus, Rash Hematologic/lymphatic: DENIES: Bruising, Lymphadenopathy Immunologic/allergic: DENIES: Eczema, Urticaria Neurologic: DENIES: Abnormal gait, Headache, Localized weakness, Paresthesias, Seizures, Speech Problems, Tremor, Poor Balance Psychiatric: DENIES: Anxiety, Confusion, Mood changes, Depression, Hallucinations, Agitation, Suicidal Ideation, Homicidal Ideation, Delusions Past Family Social History Allergies: Coded Allergies: No Known Allergies (Unverified , 01/19/17) Past Medical History Anxiety: Yes Cardiac Catheterization in 2007 Cardiomyopathy GERD Hypertension Obstructive Sleep Apnea Obesity hypoventilation syndrome Past Surgical History Appendectomy Vasectomy Reported Medications Reported Meds & Active Scripts Active Reported Alprazolam 1 Mg Tab 1 Mg PO QHS PRN Escitalopram (Escitalopram Oxalate) 20 Mg Tab 20 Mg PO QHS Bupropion HCl ER 24 HR (Bupropion HCl) 150 Mg Tab 150 Mg PO DAILY [losartan potassium] 25 Mg PO DAILY Active Ordered Medications Current Medications Medications (Trade) Dose Ordered Sig/Jennifer Route PRN Reason Start Time Stop Time Status Last Admin Dose Admin Sodium Chloride (NS Flush) 2 ml UNSCH PRN IV FLUSH FLUSH AFTER USING IV ACCESS 01/19/17 06:45 Sodium Chloride (NS Flush) 2 ml BID IV FLUSH 01/19/17 09:00 01/19/17 21:25 Naloxone HCl (Narcan Inj) 0.4 mg UNSCH PRN IV SEE LABEL COMMENTS 01/19/17 06:45 Alprazolam (Xanax) 1 mg Q12H PRN PO ANXIETY 01/19/17 14:45 01/19/17 16:19 Bupropion HCl (Wellbutrin Sr) 150 mg DAILY PO 01/20/17 09:00 Escitalopram Oxalate (Lexapro) 20 mg HS PO 01/19/17 21:00 01/19/17 21:25 Aspirin (Ecotrin Ec) 81 mg DAILY PO 01/20/17 09:00 Furosemide (Lasix) 40 mg DAILY PO 01/19/17 16:00 01/19/17 16:19 Heparin Sodium (Porcine) (Heparin Inj) 5,000 units UNSCH PRN IV APTT LESS THAN 25 01/20/17 06:45 Heparin Sodium (Porcine) (Heparin Inj) 2,500 units UNSCH PRN IV APTT 25 TO 39 01/20/17 06:45 Heparin Sodium/ Dextrose 250 ml @ 16.8 mls/hr [id number] PRN IV Coagulation management 01/20/17 00:41 Miscellaneous Information Patient in critical care unit? Ass... [id number] 01/20/17 01:15 Chlorhexidine Gluconate (Chlorhexidine 2% Cloth) 3 pack DAILY@04 TOPICAL 01/20/17 04:00 01/24/17 04:01 01/20/17 04:00 Chlorhexidine Gluconate (Chlorhexidine 2% Cloth) 3 pack UNSCH PRN TOPICAL HYGIENIC CARE 01/20/17 01:15 01/25/17 01:05 Phenylephrine HCl 40 mg/Dextrose 500 ml @ 30 mls/hr [id number] PRN IV Blood pressure management 01/20/17 03:49 Terbutaline Sulfate (Brethine Inj) 1 mg UNSCH PRN SQ For Extravasation 01/20/17 04:00 Sodium Bicarbonate 150 meq/Dextrose 1,150 ml @ 75 mls/hr [id number] IV 01/20/17 04:15 Family History Father had hypertension Social History Denies alcohol or illicit abuse Physical Exam Vital Signs Vital Signs Date Time Temp Pulse Resp B/P (MAP) Pulse Ox O2 Delivery O2 Flow Rate FiO2 01/20/17 00:15 94 Nasal Cannula 2.00 01/20/17 00:15 94 2.00 01/19/17 20:00 Room Air 01/19/17 20:00 98.4 76 20 139/67 (91) 94 01/19/17 18:00 94 01/19/17 17:00 102 01/19/17 16:09 98.5 83 17 110/69 (83) 94 01/19/17 16:00 92 01/19/17 15:00 102 01/19/17 14:00 102 01/19/17 13:00 104 01/19/17 12:00 98.6 82 18 104/69 (81) 93 01/19/17 12:00 107 01/19/17 11:00 110 01/19/17 10:30 110 116/83 01/19/17 10:00 114 01/19/17 09:30 103 01/19/17 09:30 97.9 110 18 116/83 (94) 94 01/19/17 09:20 01/19/17 09:00 118 16 115/60 (78) 95 Room Air 01/19/17 08:30 118 16 131/86 (101) 95 Room Air 01/19/17 08:15 135 16 107/73 (84) 95 Room Air 01/19/17 08:00 112 16 95/69 (78) 95 Room Air 01/19/17 07:30 95 Room Air 01/19/17 07:30 141 16 121/66 (84) 95 Room Air 01/19/17 06:53 106 16 119/79 (92) 96 Nasal Cannula 2.00 01/19/17 06:29 119 20 122/75 (91) 96 Nasal Cannula 2.00 01/19/17 05:28 145 24 137/77 (97) 94 Nasal Cannula 2.00 01/19/17 05:20 158 20 177/98 (124) 95 Nasal Cannula 2.00 01/19/17 05:20 94 Nasal Cannula 2.00 01/19/17 04:43 97.9 100 20 127/86 (100) 95 Room Air Physical Exam GENERAL: Morbidly obese gentleman, anxious.. SKIN: Warm and dry. HEAD: Normocephalic. EYES: No scleral icterus. No injection or drainage. NECK: Supple, trachea midline. No JVD or lymphadenopathy. CARDIOVASCULAR: Regular rate and rhythm without murmurs, gallops, or rubs. RESPIRATORY: Breath sounds equal bilaterally. No accessory muscle use. GASTROINTESTINAL: Abdomen soft, non-tender, nondistended. MUSCULOSKELETAL: No cyanosis, or edema. BACK: Nontender without obvious deformity. NEURO EXAM: GCS: M6 V5 E4 Mental Status: The patient is alert and oriented to person, place, and time with normal speech. Cranial Nerves: Visual acuity intact bilaterally. Visual verduzco normal in all quadrants. Pupils are round, reactive to light. Extraocular movements are intact without ptosis. Hearing is normal bilaterally. Voice is normal. Tongue protrudes midline and moves symmetrically. Reflexes: Biceps, patellar, and Achilles are 2/4 bilaterally. No clonus. Sensation: Sensation is intact bilaterally to pain and light touch. Two-point discrimination is intact. Motor: Good muscle tone. Strength is 5/5 bilaterally. Cerebellar: [id number] and aswz-le-lcbt test normal bilaterally. Laboratory Laboratory Tests Test 01/19/17 05:20 8/24/17 11:56 01/19/17:28 01/20/17 01:00 White Blood Count 10.5 12.5 Red Blood Count 5.65 5.96 Hemoglobin 14.9 15.2 Hematocrit 45.7 49.7 Mean Corpuscular Volume 80.8 83.3 Mean Corpuscular Hemoglobin 26.4 25.5 Mean Corpuscular Hemoglobin Concent 32.6 30.6 Red Cell Distribution Width 15.6 16.2 Platelet Count 191 184 Mean Platelet Volume 8.9 8.8 Neutrophils (%) (Auto) 74.4 68.9 Lymphocytes (%) (Auto) 16.7 23.4 Monocytes (%) (Auto) 6.9 5.4 Eosinophils (%) (Auto) 1.5 1.7 Basophils (%) (Auto) 0.5 0.6 Neutrophils # (Auto) 7.8 8.6 Lymphocytes # (Auto) 1.8 2.9 Monocytes # (Auto) 0.7 0.7 Eosinophils # (Auto) 0.2 0.2 Basophils # (Auto) 0.1 0.1 CBC Comment DIFF FINAL DIFF FINAL Differential Comment Prothrombin Time 12.0 Prothromb Time International Ratio 1.1 Activated Partial Thromboplast Time 23.7 D-Dimer Quantitative (PE/DVT) 1.13 Blood Urea Nitrogen 15 21 Creatinine 1.03 1.88 Random Glucose 86 159 Total Protein 6.5 Albumin 3.3 Calcium Level 8.7 7.9 Magnesium Level 2.0 Alkaline Phosphatase 79 Aspartate Amino Transf (AST/SGOT) 70 Alanine Aminotransferase (ALT/SGPT) 125 Total Bilirubin 1.0 Sodium Level 141 141 Potassium Level 3.8 4.5 Chloride Level 109 107 Carbon Dioxide Level 23.5 18.9 Anion Gap 9 15 Estimat Glomerular Filtration Rate 76 38 Total Creatine Kinase 298 227 236 244 Creatine Kinase MB 8.9 Troponin I 0.09 0.09 0.08 0.08 B-Type Natriuretic Peptide 233 Thyroid Stimulating Hormone 3rd Gen 1.980 Triglycerides Level 91 Cholesterol Level 124 LDL Cholesterol 72 HDL Cholesterol 33.5 Cholesterol/HDL Ratio 3.70 Test 01/20/17 01:05 Blood Gas Puncture Site RT BRACHIAL Blood Gas Patient Temperature 98.6 Blood Gas HCO3 14 Blood Gas Base Excess -10.3 Blood Gas Oxygen Saturation 90 Arterial Blood pH 7.37 Arterial Blood Partial Pressure CO2 25 Arterial Blood Partial Pressure O2 70 Arterial Blood Oxygen Content 19.2 Arterial Blood Carboxyhemoglobin 1.5 Arterial Blood Methemoglobin 1.0 Blood Gas Hemoglobin 15.1 Oxygen Delivery Device NASAL CANNULA Blood Gas Liter Flow 2.5 Result Diagram: 01/20/17 0100 01/20/17 0100 Imaging Last 24 hours Impressions Chest X-Ray 01/20/17 0000 Signed Impressions: Service Date/Time: Friday, January 20, 2017 00:29 - CONCLUSION: Stable examination. Rob Gerber MD Assessment and Plan Assessment and Plan Hypotension - Likely iatrogenic - Due to Cardizem and beta gayle - Hold antihypertensive medications - IV fluid resuscitation - Telemetry Metabolic acidosis - History of diarrhea - Sodium bicarbonate IV replacement Shortness of breath - CT PE negative - Untreated MANISH/OHS - BiPAP at bedtime Hyperglycemia - Insulin sliding scale Atrial fibrillation - Currently rate controlled - Management per cardiology Troponin leak - No transient off increase - Likely due to uncontrolled rate - Further workup per bait packer DVT GI prophylaxis - Teds SCDs - Lovenox - Heart healthy diet Critical Care: The total critical care time was 35 minutes. Time to perform other separately billable procedures was not included in the critical care time. Arvind Thomas MD Jan 20, 2017 1:51 am
[2017-01-20] MEDS ORDERED: TERBUTALINE INJ 1 MG/ML AMP SQ PRN ×2 (04:00→13:30)
[2017-01-20] MEDS ORDERED: SODIUM CHLOR 0.9% 1000 ML INJ 1,000 ML IV ONE ×2 (04:00)
[2017-01-20] MEDS: CHLORHEXIDINE GLUCONATE 2 % 1 PACK (2 CLOTHS)(taper/protocol) TOPICAL SCH (04:00)
[2017-01-20] MEDS ORDERED: SODIUM BICARBONATE 8.4% INJ 150 MEQ in DEXTROSE 5% IN WATE 1000ML INJ 1,000 ML IV SCH ×2 (04:15)
[2017-01-20] MEDS ORDERED: DEXTROSE 50% IN WATER 50 ML VIAL(D50) IV PRN (05:30)
[2017-01-20] MEDS ORDERED: GLUCAGON 1 MG/ML VIAL OTHER PRN (05:30)
[2017-01-20] MEDS: INSULIN ASPART SUPPLEMENTAL SCALE SQ SCH ×2 (06:21→11:00)
[2017-01-20] MEDS: ALPRAZolam 1 MG TAB PO PRN (06:24)
[2017-01-20] MEDS ORDERED: HEPARIN SODIUM - IV 10,000 UNITS/10 ML VIAL IV PRN ×2 (06:45)
[2017-01-20] MEDS: ASPIRIN EC 81 MG TABEC PO SCH (08:28)
[2017-01-20] MEDS: SODIUM CHLORIDE 0.9% FLUSH 10 ML FLUSH IV FLUSH SCH ×2 (08:28→22:18)
[2017-01-20] MEDS: FUROSEMIDE 40 MG TAB PO SCH (08:28)
[2017-01-20] MEDS: buPROPion HCL 150 MG SUSTAINED RELEASE TAB PO SCH (08:28)
[2017-01-20 09:55] LABS: APTT (PATIENT) 26.6 SEC (24.3-30.1)
[2017-01-20] MEDS: PHENYLEPHRINE INJ 40 MG in DEXTROSE 5% IN WATE 500 ML INJ 496 ML IV PRN ×2 (10:14)
[2017-01-20 10:53] LABS: CKMB 8.6 NG/ML (0.5-3.6)
[2017-01-20] MEDS ORDERED: EPINEPHrine HCL (1:10,000) 1 MG/10 ML SYRINGE ONE ×2 (11:23→14:09)
[2017-01-20] MEDS ORDERED: EPINEPHrine HCL (1:1000) 1 MG/ML VIAL ONE (11:23)
[2017-01-20] MEDS ORDERED: ONDANSETRON HCL 4 MG/2 ML VIAL ONE (11:24)
[2017-01-20 11:59] LABS: BLOOD GAS VENOUS HCO3 15 mmol/L (22-26); BLOOD GAS VENOUS O2 CONTENT 10.1 Vol % (9.0-17.0); BLOOD GAS VENOUS O2 HGB SAT 46 % (70-76); BLOOD GAS VENOUS PCO2 40 mmHg (44-48); BLOOD GAS VENOUS PO2 35 mmHg (35-40); BLOOD GAS VENOUS pH 7.19 (7.360-7.400); CRITICAL VALUE YES; LITER FLOW 6 L/M; OXYGEN DEVICE NASAL CANNULA; TEMP CORR TO 98.6
[2017-01-20 12:00] LABS: DRAW SITE R ARM; STAT YES
[2017-01-20] MEDS ORDERED: ETOMIDATE 20 MG/10 ML VIAL ONE (13:20)
[2017-01-20] MEDS ORDERED: ROCURONIUM INJ 100 MG/10 ML VIAL IV ONE (13:30)
[2017-01-20] MEDS ORDERED: ETOMIDATE 20 MG/10 ML VIAL IV PUSH ONE (13:30)
[2017-01-20] MEDS ORDERED: EPINEPHrine (1:1000) INJ 8 MG in DEXTROSE 5% IN WATER INJ 242 ML IV PRN ×2 (13:30)
[2017-01-20] MEDS ORDERED: SODIUM BICARBONATE 8.4% INJ 200 ML ONE (13:59)
[2017-01-20] MEDS ORDERED: DIGOXIN 0.5 MG/2 ML VIAL IV PUSH ONE ×2 (15:15→23:45)
[2017-01-20 15:20] LABS: BLOOD GAS BASE EXCESS -4.4 mmol/L (-2-2); BLOOD GAS CARBOXYHEMOGLOBIN 1.2 % (0-4); BLOOD GAS HCO3 20 mmol/L (22-26); BLOOD GAS O2 HGB SATURATION 90 % (90-100); BLOOD GAS PCO2 36 mmHg (38-42); BLOOD GAS PO2 71 mmHg (61-120); CRITICAL VALUE NO; DRAW SITE ART LINE; FIO2 100 %; NUMBER OF ARTERIAL PUNCTURES 0; OXYGEN DEVICE VENTILATOR; STAT NO; TEMP CORR TO 98.6; ULNAR PULSE PRESENT; VENT SETTINGS AC/20/720/PEEP10
[2017-01-20] MEDS ORDERED: BUMETANIDE INJ 1 MG/4 ML VIAL ONE (15:53)
--- NOTE | 2017-01-20 15:53 | RADRPT ---
EXAM DATE/TIME: 01/20/2017 15:06 [facility] COMPARISON: CHEST SINGLE AP, January 20, 2017, 0:29. INDICATIONS : Post ETT placement. MEDICAL HISTORY : Hypertension. SURGICAL HISTORY : None. ENCOUNTER: Subsequent ACUITY: 2 days PAIN SCORE: Non-responsive. LOCATION: Bilateral chest FINDINGS: Portable AP view of the chest demonstrates mild enlarged cardiac silhouette. Endotracheal tube tip me asures 5.5 cm from the an. Multiple lines overlie the patient. There are bibasilar pleural-parenc hymal opacities. No pneumothorax is visualized. CONCLUSION: 1. Endotracheal tube tip in appropriate position measuring 5.5 cm from the an. 2. Bibasilar opacities likely representing pleural effusions with associated volume loss and/or conso lidation. 3. Stable enlargement of the cardiac silhouette. Deondre Potts MD on January 20, 2017 at 15:50 Board Certified Radiologist. This report was verified electronically.
[2017-01-20] MEDS ORDERED: NITROGLYCERIN-D5W 50 MG/250 ML 250 ML IV PRN (15:55)
[2017-01-20] MEDS ORDERED: CHLOROTHIAZIDE SOD 500 MG VIAL IV ONE (16:00)
[2017-01-20] MEDS ORDERED: SPIRONOLACTONE 25 MG TAB PO ONE (16:00)
[2017-01-20] MEDS ORDERED: MIDAZOLAM HCL 5 MG/ML VIAL (1 ML) IV ONE (16:00)
[2017-01-20] MEDS ORDERED: BUMETANIDE INJ 1 MG/4 ML VIAL IV PUSH ONE (16:00)
[2017-01-20] MEDS ORDERED: DOBUTamine PREMIX DRIP 250 ML ONE (16:11)
[2017-01-20 16:40] LABS: APTT (PATIENT) 25.2 SEC (24.3-30.1); INTERNATIONAL NORMALIZED RATIO 1.9 RATIO; PROTHROMBIN TIME - PATIENT 21.4 SEC (9.8-11.6)
[2017-01-20] MEDS: DOBUTamine PREMIX DRIP 250 ML IV SCH ×2 (16:52→22:19)
[2017-01-20 16:53] LABS: FERRITIN 6495 NG/ML (26-388); FREE T4 1.64 NG/DL (0.76-1.46); TRANSFERRIN IRON PROFILE 181 MG/DL (200-360)
[2017-01-20 16:54] LABS: CKMB 9.6 NG/ML (0.5-3.6)
[2017-01-20] MEDS: MIDAZOLAM 100 MG/100 ML INJ 100 ML IV PRN ×2 (16:56→21:14)
[2017-01-20 17:00] LABS: BICARBONATE 22.9 MEQ/L (21.0-32.0); TOTAL BILIRUBIN ADULT 1.6 MG/DL (0.2-1.0)
[2017-01-20 17:03] LABS: CALCIUM-PROTEIN CORRECTED 7.1 MG/DL (8.5-10.1)
--- NOTE | 2017-01-20 17:14 | ECHRPT ---
Indication: a fib CONCLUSIONS The left ventricular systolic function is severely reduced with an estimated ejection fraction less than 20%. Moderately dilated left ventricle. Wall thickness is measured at the upper limits of normal. There is mild tricuspid valve regurgitation. The estimated pulmonary arterial pressure is 34 mmHg. The pulmonary valve is not well visualized. There is a small pericardial effusion present. BP: 104 / 69 HR: 107 Rhythm: MEASUREMENTS (Male / Female) Normal Values Technical Quality:Technically difficult study 2D ECHO LV Diastolic Diameter PLAX 5.8 cm 4.2 - 5.9 / 3.9 - 5.3 cm LV Systolic Diameter PLAX 5.5 cm IVS Diastolic Thickness 1.1 cm 0.6 - 1.0 / 0.6 - 0.9 cm LVPW Diastolic Thickness 0.9 cm 0.6 - 1.0 / 0.6 - 0.9 cm LV Relative Wall Thickness 0.4 RV Internal Dim ED PLAX 2.8 cm DOPPLER Mitral E Point Velocity 67.1 cm/s Mitral A Point Velocity 58.2 cm/s Mitral E to A Ratio 1.2 LV E' Lateral Velocity 7.8 cm/s Mitral E to LV E' Lateral Ratio 8.6 LV E' Septal Velocity 14.2 cm/s Mitral E to LV E' Septal Ratio 4.7 TR Peak Velocity 247.0 cm/s TR Peak Gradient 24.4 mmHg FINDINGS LEFT VENTRICLE The left ventricular systolic function is severely reduced with an estimated ejection fraction less than 20%. Moderately dilated left ventricle. Wall thickness is measured at the upper limits of normal. RIGHT VENTRICLE Normal right ventricular size and systolic function. LEFT ATRIUM The left atrial size is normal. RIGHT ATRIUM The right atrial size is normal. ATRIAL SEPTUM Normal atrial septal thickness without atrial level shunting by limited color doppler interrogation. AORTA The aortic root and proximal ascending aorta are normal in size on limited imaging. MITRAL VALVE Structurally normal mitral valve. No mitral valve stenosis or regurgitation. AORTIC VALVE Trileaflet aortic valve. No aortic valve stenosis or regurgitation. TRICUSPID VALVE There is mild tricuspid valve regurgitation. The estimated pulmonary arterial pressure is 34__ mmHg. PULMONARY VALVE The pulmonary valve is not well visualized. VESSELS The inferior vena cava is normal in size. PERICARDIUM There is a small pericardial effusion present. Ryan Grimaldo MD (Electronically Signed) Final Date:20 January 2017 17:13
[2017-01-20] MEDS ORDERED: SODIUM CHLOR 0.9% 1000 ML INJ 1,000 ML IV PRN (17:22)
[2017-01-20] MEDS ORDERED: SODIUM CHLOR 0.9% 1000 ML INJ 1,000 ML OTHER PRN (17:22)
[2017-01-20] MEDS ORDERED: GELATIN 12 MM/7 MM FOAM TOP PRN (17:30)
[2017-01-20] MEDS ORDERED: MANNITOL 12.5 GM/50 ML VIAL IV PRN (17:30)
[2017-01-20] MEDS ORDERED: NITROGLYCERIN 0.4 MG SL 25 TABS/BTL SL PRN (17:30)
[2017-01-20] MEDS ORDERED: HEPARIN SODIUM - IV 10,000 UNITS/10 ML VIAL IVF PRN (17:30)
[2017-01-20] MEDS ORDERED: diphenhydrAMINE HCL 25 MG CAP PO PRN (17:30)
[2017-01-20] MEDS ORDERED: ONDANSETRON HCL 4 MG/2 ML VIAL IV PRN (17:30)
[2017-01-20] MEDS ORDERED: cloNIDine HCL 0.1 MG TAB PO PRN (17:30)
[2017-01-20] MEDS ORDERED: SODIUM CHLORIDE 0.9% FLUSH 10 ML FLUSH IV FLUSH PRN (17:30)
[2017-01-20] MEDS ORDERED: ACETAMINOPHEN 325 MG TAB PO PRN (17:30)
--- NOTE | 2017-01-20 18:37 | MB ---
cc: CAROL MCCALL MD DATE OF CONSULTATION 01/20/17 REASON FOR CONSULTATION Acute kidney injury with decreased urine output. HISTORY OF PRESENT ILLNESS This is a 51-year-old male with past medical history of hypertension, anxiety who was admitted with worsening shortness of breath. I was called to see the patient because of decreased urine output and increased creatinine. The patient presented to the emergency room yesterday with worsening shortness of breath gradually going on for the last one week. He has flu-like symptoms for the last one week and has cough and gradually worsening of shortness of breath. He was seen by his primary care physician and, according to the chart, his primary care physician was about to order an echocardiogram. He had the CTA done which was negative for pulmonary embolism. The patient came to the hospital. His breathing got worse. He also has hypotension and the patient was transferred to the intensive care unit and was intubated. I was called by the academic associate since the patient has decreased urine output and he has generalized edema and requiring 100% FIO2 with low oxygenation. The patient is intubated and is currently in CVICU, just moved here. Urine output is about 20-30 an hour. This is after getting one dose of Bumex IV. Blood pressure has been on the lower side. The patient is intubated, not able to give any history. Most of the history was taken from the patient's chart. In the morning, he developed rapid response and was found to be hypoxemic and hypotensive. PAST MEDICAL HISTORY 1. Anxiety, 2. Hypertension, 3. Gastroesophageal reflux disease 4. Sleep apnea. PAST SURGICAL HISTORY 1. Appendectomy 2. Omentectomy REVIEW OF SYSTEMS Cannot be taken since the patient is intubated. SOCIAL HISTORY There is no history of smoking or alcoholism FAMILY HISTORY Positive for hypertension from father's side. MEDICATIONS Currently he is on following medications 1. infusion 2. Wellbutrin 150 mg once a day 3. Aspirin 81 mg daily. 4. Lexapro 20 mg q.h.s. 5. Insulin sliding scale. 6. Narcan as needed 7. Xanax as needed PHYSICAL EXAMINATION GENERAL: The patient is intubated and sedated. VITAL SIGNS: Blood pressure recorded is 82/57, temperature is 98.5, oxygen saturation 100%, FIO2 is 88-91%. HEENT: Pupils are mid constricted. Nonicteric sclerae. Conjunctivae normal. NECK: Supple. JVD is slightly elevated. LUNGS: The patient has bilateral decreased air entry with basilar rales. HEART: S1, S2, regular rhythm. ABDOMEN: Distended, soft,. lax. There is some subcutaneous edema. EXTREMITIES: He has bilateral 2+ leg edema. LABORATORY DATA WBC count is 12.5, hemoglobin 15.2, platelet count of 184, neutrophils 68.9%. Sodium 141. Potassium 4.5, chloride 107, bicarb 18.9, BUN 21, creatinine 1.8, glucose 150 and repeat BMP which is pending. Calcium 7.9, creatinine kinase 448. Troponin I 0.13. INR was 1.1, D-dimer 1.13, arterial blood gas showing pH of 7.37, pCO2 of 36 and pO2 71. This was done on 100% FIO2. base excess -4.4. IMAGING STUDIES Chest x-ray was done which shows that he has no infiltrate. CT angiogram was done which was negative for pulmonary embolism, small effusion. ASSESSMENT/PLAN 1. Hypotension and cardiogenic shock. 2. Acute kidney injury 3. Respiratory failure with hypoxemia. 4. Fluid overload status. 5. Cardiomyopathy and congestive heart failure The patient has hypotension and cardiomyopathy with low ejection fraction and hypotension. The acute kidney injury is most likely because of a combination of these two. The urine output is also low because of that. At present, he has possible acute tubular necrosis or interstitial nephritis. We will check the urinalysis and also urine sodium osmolality. There is a possibility of contrast nephropathy also since he had the CTA done. The patient was given one dose of Bumex and I discussed with Dr. Ty to gave him Bumex infusion and follow his urine output and the BUN and creatinine. If it does not improve, possibly he will need dialysis. Thank you for the consultation and I will follow the patient while he is in the hospital. MD TOSIN Poe/ /4:25 PM /6:09 PM
--- NOTE | 2017-01-20 19:29 | RADRPT ---
EXAM DATE/TIME: 01/20/2017 19:03 [facility] COMPARISON: No previous studies available for comparison. INDICATIONS : Post swan placement. MEDICAL HISTORY : Hypertension. SURGICAL HISTORY : None. ENCOUNTER: Subsequent ACUITY: 2 days PAIN SCORE: Non-responsive. LOCATION: Bilateral chest FINDINGS: Bilateral internal jugular central venous catheters are now present with tips in the right atrium. En dotracheal tube unchanged, about 4 cm above the an. There is a nasogastric tube coursing into the stomach. No pneumothorax seen. There is bibasilar atelectasis not significantly changed. CONCLUSION: Bilateral internal jugular central venous catheters have been placed. No pneumothorax or other acute complication demonstrated. Bibasilar atelectasis not significantly changed. Deondre Cortez MD on January 20, 2017 at 19:26 Board Certified Radiologist. This report was verified electronically.
[2017-01-20] MEDS ORDERED: RESP: ALBUTEROL 2.5 MG/IPRATROPIUM 0.5 MG NEB (PRN) INH (19:45)
[2017-01-20] MEDS ORDERED: DEXTROSE 50% IN WATER 50 ML VIAL(D50) IV PUSH PRN (19:45)
[2017-01-20] MEDS ORDERED: MILRINONE INJ 20 MG in SODIUM CHLORIDE 0.9% INJ 80 ML IV SCH (19:46)
--- NOTE | 2017-01-20 19:58 | HHI.CCPN ---
Subjective Remarks/Hospital Course Hospital Course: 51-year-old male with a history of hypertension, presents for evaluation of ongoing and worsening symptoms of shortness of breath 1 week duration associated with chest pressure. Patient states, around 3 AM he was having significant difficulty breathing and decided to come to the ED. This has been an ongoing problem for which patient was supposed to get 2-D echo evaluation as an outpatient. While in emergency department, patient was found to be in A. fib. He denies any previous history of atrial fibrillation, this was also asymptomatic without palpitations or chest pain. CTA was negative for PE and chest x-ray did not reveal any pulmonary congestion. Patient had minimally elevated cardiac enzyme and a mildly elevated BNP of 233. He was started on Cardizem drip for rate control of atrial fibrillation and was admitted to CICU. rv servicer on January 20 rapid response was called due to patient's hypotension and hypoxemia. Subjective: 01/20: Seen and examined initially around 09:30am. Patient with severe dyspnea, agitation, anxiety. In talking with the patient and his , he has a history that over the last approximately 1-2 years she's felt progressively short of breath and can no longer do the activities that he used to be able to do. He can only walk approximately 50 feet without getting winded. He denies any chest pain. He does say that he was diagnosed with sleep apnea approximately a year ago was placed on a BiPAP machine and this did in fact help some of his dyspnea, but he still had significant fatigue with walking even short distances. He and his both note that approximately back in August he had a flulike illness with significant muscle aches, malaise, headache. More recently , over the last 1-2 weeks he has had rapidly progressive shortness of breath, dyspnea on exertion, orthopnea, paroxysmal nocturnal dyspnea. This is presented also in the form of worsening anxiety is becoming very anxious about not being able to catch his breath. He presented to the emergency department yesterday with these complaints and was found to be in new onset atrial fibrillation and mildly hypoxemic. He was given 1 dose of diuretic. Overnight he was started on a diltiazem drip and became severely hypotensive with this. 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 He has been followed with quarterly LFTs which have always been in the mid 70s range per her. Otherwise he has not had any significant past medical history. He has a grandfather that of an AK in his 70s, and a grandmother that of a stroke in her 70s, but no other family history of cardiovascular disease. He has never smoked. He is a very rare drinker, and his confirms this that it is rare that he has any alcohol. He denies any illicit drug use. Review systems is negative unless previous stated. On my initial evaluation, the patient is restless, RASS +1, oriented but confused, CAM +. His extremities are almost mottled. He has severely delayed cap refill. His extremities are cool, very poorly perfused appearing. He has grossly elevated JVD above the level of mandible. I performed a bedside critical care ultrasound which demonstrated what appears to be severely reduced global LV function, very dilated IVC, no pericardial effusion. His troponins are only mildly elevated at 0.08 and this does not appear to be acute coronary syndrome. Highest on my differential at this point would be a new acute onset cardiomyopathy, likely nonischemic given his history. I immediately started the patient on dobutamine IV. I also martin a lactate which resulted at 7.4. I martin a ScVO2 which was 40%, suggestive of severe cardiogenic shock. I attempted arterial line placement, but the patient was too confused and the radial artery too poorly perfused for successful cannulation. At this point, the patient also had not made any urine throughout the day and was refusing raymundo catheter placement. Given his worsening shock and clinical decompensation, after discussion with his , decision was made to intubate the patient (see separate procedure note for details). After intubating the patient, I placed femoral arterial and central lines. He was then transferred to the CVICU where we placed PA catheter. The patient was given one attempt at forced diuresis with Bumex 4mg iv, diamox 500mg iv, diuril 500mg iv which did not produce any significant urine. Nephrology was emergently consulted and I placed emergent dialysis catheter. Starting PA numbers: RAP 17, PAP 38/23 (30), PCWP 23. CI 2.2, svo2 65% which has improved from prior 40%. Patient after being intubated was also severely hypoxemic with spo2 85% on 100% fio2. CXR demonstrates severe bilateral airspace disease consistent with severe pulmonary edema. I again discussed his care with Dr. Browne and we both agree that for his afib and rate control, digoxin (carefully dosed given renal dysfunction) would be the most appropriate therapy. We started with 0.5mg iv x 1 with a plan for a total of up to 1.25mg iv dosed in small doses as a load, and no maintenance therapy, with serial dig levels. Objective Vital Signs Date Time Temp Pulse Resp B/P (MAP) Pulse Ox O2 Delivery O2 Flow Rate FiO2 01/20/17 16:53 91 128/71 01/20/17 15:30 100 100 01/20/17 12:00 98.5 27 01/20/17 09:00 Nasal Cannula 6.00 Intake and Output 01/20/17 01/20/17 01/21/17 08:00 16:00 00:00 Intake Total 2250 ml 1385 ml Output Total 250 ml Balance 2000 ml 1385 ml Result Diagram: 01/20/17 0100 01/20/17 1445 Other Results Laboratory Tests Test 01/20/17 01:05 01/20/17 11:50 01/20/17 15:06 Blood Gas Puncture Site RT BRACHIAL R ARM ART LINE Blood Gas Patient Temperature 98.6 98.6 98.6 Blood Gas HCO3 14 mmol/L (22-26) 20 mmol/L (22-26) Blood Gas Base Excess -10.3 mmol/L (-2-2) -4.4 mmol/L (-2-2) Blood Gas Oxygen Saturation 90 % (90-100) 90 % (90-100) Arterial Blood pH 7.37 (7.380-7.420) 7.37 (7.380-7.420) Arterial Blood Partial Pressure CO2 25 mmHg (38-42) 36 mmHg (38-42) Arterial Blood Partial Pressure O2 70 mmHg (61-120) 71 mmHg (61-120) Arterial Blood Oxygen Content 19.2 Vol % (12.0-20.0) 19.0 Vol % (12.0-20.0) Arterial Blood Carboxyhemoglobin 1.5 % (0-4) 1.2 % (0-4) Arterial Blood Methemoglobin 1.0 % (0-2) 1.0 % (0-2) Blood Gas Hemoglobin 15.1 G/DL (12.0-16.0) 15.0 G/DL (12.0-16.0) Oxygen Delivery Device NASAL CANNULA NASAL CANNULA VENTILATOR Blood Gas Liter Flow 2.5 L/M 6 L/M Venous Blood pH 7.19 (7.360-7.400) Venous Blood Partial Pressure CO2 40 mmHg (44-48) Venous Blood Partial Pressure O2 35 mmHg (35-40) Venous Blood HCO3 15 mmol/L (22-26) Venous Blood Oxygen Saturation 46 % (70-76) Venous Blood Oxygen Content 10.1 Vol % (9.0-17.0) Venous Blood Base Excess -12.0 mmol/L (-2-2) Blood Gas Ventilator Setting AC/20/720/PEEP10 Blood Gas Inspired Oxygen 100 % Imaging Last 24 hours Impressions Chest X-Ray 01/20/17 0000 Signed Impressions: Service Date/Time: Friday, January 20, 2017 00:29 - CONCLUSION: Stable examination. Rob Gerber MD Objective Remarks GENERAL: Morbidly obese gentleman, in severe distress. SKIN: Warm and dry. HEAD: Normocephalic. EYES: No scleral icterus. No injection or drainage. NECK: Supple, trachea midline. severe JVD above mandible. CARDIOVASCULAR: tachycardic rate, irregularly irregular rhythm. afib by tele. rate in 120s. RESPIRATORY: tachypneic, in distress. GASTROINTESTINAL: Abdomen obese, soft, non-tender, nondistended. MUSCULOSKELETAL: 3+ edema. mottled appearance. NEURO EXAM: RASS +1. agitated. oriented but confused. CAM+. follows commands. anxious. A/P Assessment and Plan Assessment: 51yM with past history of ?ZHANG Cirrhosis and obstructive sleep apnea now with what appears to be New-onset Acute Severe Dilated Cardiomyopathy in decompensating cardiogenic shock and multi-organ failure, shock liver, acute kidney injury requiring emergent renal replacement therapy, volume overload, pulmonary edema, acute hypoxic respiratory failure, lactic acidosis. Very critically ill. I have had multiple conversations with him and his family about his prognosis and decompensating clinical condition. Plan by systems: Neurologic: Agitated delirium secondary to hypoxia secondary to low cardiac output - Versed drip for goal RASS -2. will not tolerate propofol or fentanyl at this point given degree of cardiogenic shock - frequent neuro checks Respiratory: Acute hypoxic respiratory failure Pulmonary edema Obstructive sleep apnea - intubated for worsening hypoxemia - vent bundle, hob at 30 degrees, nebs - no SBT today while in shock - needs emergent dialysis with volume removal. Cardiovascular: Cardiogenic shock New acute severe dilated cardiomyopathy- EF 15% Elevated Troponin secondary to demand ischemia/Type II NSTEMI Acute Systolic Congestive Heart Failure Exacerbation New-onset Atrial Fibrillation with Rapid Ventricular Response - cardiology following: Dr. Browne - f/u formal 2d echo read - placed femoral art line, central line, PA catheter. - trend thermodilution cardiac outputs - no evidence of active ACS. currently coagulopathic. will not anticoagulate at this time - digoxin 0.5mg iv x 1 now. trend dig levels. - would prefer not to amio load or convert if possible, but we may be forced to if instability continues. - trend troponins until downtrending. - trend lactates via IL-GEM, trend ABGs. - will need LHC/RHC - national shortage of dobutamine, hospital is running out. will transition to Milrinone at 0.5 mcg/kg/min. must watch carefully given renal dysfunction. Renal: Severe acute kidney injury requiring emergent Renal replacement therapy Acute intravascular volume overload Anuria -- Strict I/Os - Emergent IHD - likely needs 15L removed at least in the coming days. - trend renal function FEN/GI: Acute intravascular volume overload Shock liver Possible history of Zhang cirrhosis Morbid obesity Lactic acidosis Anion gap metabolic acidosis - NPO while in shock - trend LFTs - send hepatitis panel, iron studies, hemachromatosis work-up. - IHD as above. - aggressive electrolyte replacements given poor cardiac function Heme/ID: Coagulopathy secondary to acute liver failure Elevated ferritin - trend daily coags - consult hematology and get their recommendations. could hemochromatosis be an underlying cause of hepatic dysfunction and cardiomyopathy? - daily cbc - no infectious etiology currently. post-viral cardiomyopathy could be a cause of new-onset NICM, but no evidence of active infection. Endocrine: Hyperglycemia of critical illness -- SSI, medium scale, every 4 -- TSH, free t4 appropriate. Prophylaxis: GI Prophylaxis - Pepcid 10mg q12h (renally adjusted) DVT Prophylaxis -- SCDs -- hold pharmacologic DVT prophylaxis given coagulopathy. will re-eval daily. Lines: - 01/20 left femoral arterial line - 01/20 left femoral triple lumen catheter - 01/20 right IJ 8.5 Fr Cordis introducer sheath - 01/20 right IJ 6 Fr PA Catheter - 01/20 left IJ 14 Fr 20cm VasCath - 01/20 Judy Dispo: -- Transfer from the medical ICU to the cardiac ICU. Remain in the ICU as he is very critically ill. CODE STATUS: Of note, the patient and his both confirmed to me that the patient has wanted to be DNR for many years. In discussions, he had a family member who sustained an anoxic brain injury after CPR and was in a persistent vegetative state, and this is unacceptable to the patient. The patient has had long-standing known and expressed wishes that he did not want CPR or life sustaining measures. After discussion particularly with the , I made it clear that we have not completed our workup of this new cardiomyopathy, and we are unsure if this is a reversible process. The patient was in favor of intubation and so we proceeded with that. I expressed my concern that in his acute and critical state, ventricular dysrhythmias are common, and successful cardioversion or defibrillation out of these could still be lifesaving with minimal risk of severe anoxic brain injury. After this discussion, we agreed that the patient would accept electrical cardioversion or defibrillation, particularly in the event that he sustained a non-perfusing or unstable dysrhythmias, but congruent with his wishes, we would not pursue CPR or full ACLS as this would not be keeping with his wishes. The patient is an alternate code: Intubation and electrical shocks only. This patient remained critically ill with multiple organ systems which are and continue to be a threat to life. I remain with the patient for most of the day today, at his bedside actively directing in managing his care. This addendum represents an additional 205 minutes in excess of any time previously documented in the care and management of this patient. This time is discontinuous, exclusive of procedures, and includes, but is not limited to, evaluation of the patient, review of the medical record, discussions with family , consultants, nursing staff, or respiratory therapy, and documentation in the medical record. Henrik Mehta MD Jan 20, 2017 19:58
[2017-01-20] MEDS: INSULIN NovoLIN REGULAR SUPPLEMENTAL SCALE SQ SCH (20:00)
[2017-01-20] MEDS: HEPARIN SODIUM - IV 10,000 UNITS/10 ML VIAL PRN (20:12)
[2017-01-20] MEDS: GENTAMICIN SULFATE (DIALYSIS USE ONLY) 20 MG/2 ML VIAL IV PRN (20:12)
[2017-01-20] MEDS ORDERED: ROCURONIUM INJ 50 MG/5 ML VIAL IV STA (20:42)
[2017-01-20] MEDS: FAMOTIDINE 20 MG/2 ML VIAL IV PUSH SCH (21:00)
[2017-01-20] MEDS: ESCITALOPRAM OXALATE 20 MG TAB PO SCH (21:00)
--- NOTE | 2017-01-20 21:18 | PD.PROCEDR ---
Procedure Note Procedure Endotracheal Intubation Diagnosis: Cardiogenic shock Indications: As patient is a 51-year-old male with new diagnosis of a new acute severe dilated cardiomyopathy. He became worseningly hypoxic and decompensated. He is intubated for acute hypoxic respiratory failure Consent: Verbal consent was obtained from the patient and his Anesthesia: Etomidate 20 mg IV, Rocuronium 100 mg IV, epinephrine 100 g IV Description of the Procedure: Prior to intubation, the patient was given 4 A of sodium bicarbonate to medicate his severe and worsening metabolic acidosis and preserve what little cardiac output he had to prevent catastrophic acidosis leading to cardiac failure. The patient was positioned in the sniffing position. Pre-oxygenation was performed using a nonrebreather mask. Anesthesia was induced with the addition of small doses of IV epinephrine to maintain adequate inotropic and cardiac output. The patient is morbidly obese and although he has a reassuring airway exam, I was concerned about his morbid obesity causing intrapulmonary shunting and fast saturations with acute hypoxemia. Thus, the laryngoscopy was elected as a first-line attempt, not because the patient appeared to be a difficult laryngoscopy, but to minimize time obtaining the airway. A GlideScope #4 was used for laryngoscopy and a Grade I view was obtained. A 8.5 cuffed endotracheal tube was inserted atraumatically through the vocal cords. Confirmation of correct endotracheal tube placement was made by equal and bilateral breath sounds and colorimetric CO2 detection. The endotracheal tube was secured at 23 cm at the teeth. There were no immediate complications noted. The patient remained hemodynamically stable throughout the procedure. A chest x-ray has been ordered. I personally performed the procedure. Henrik Mehta MD Jan 20, 2017 21:17
--- NOTE | 2017-01-20 21:19 | PD.PROCEDR ---
Procedure Note Procedure Unomplicated Urinary Catheter Placement Diagnosis: Cardiogenic shock Indications: Severe acute volume overload and pulmonary edema requiring aggressive forced diuresis and maintenance of accurate I's and O's in the setting of aggressive forced diuresis Successful placement: 18 Greek coud catheter Description of the Procedure: 2 prior attempts were made by nursing to place Kim catheter. I successfully placed 18 Greek coud catheter. There was a small amount of clot and small amount of hematuria. This was flushed successfully. No immediate complications noted. I personally performed the procedure. Henrik Mehta MD Jan 20, 2017 21:19
--- NOTE | 2017-01-20 21:20 | PD.PROCEDR ---
Procedure Note Procedure Procedure: Arterial Line Placement Left femoral 16-gauge arterial line Diagnosis: Cardiogenic shock Indications: For beat to beat hemodynamic monitoring Consent: Verbal consent was obtained from the patient Description of the Procedure: The left groin was prepped and draped sterilely. 1% lidocaine was used for local anesthesia. Direct ultrasound guidance was used to identify the left femoral artery. The vascular anatomy the left groin was normal. Under direct real-time visualization, The artery was located and a needle was advanced into the artery. A 16 gauge, 20 cm catheter was advanced into the artery using a modified Seldinger technique. The catheter was sutured to the skin and a sterile dressing was applied. The catheter was connected to a pressure transducer and an arterial waveform was noted. There were no immediate complications noted. There was minimal EBL. I personally performed the procedure. Henrik Mehta MD Jan 20, 2017 21:20
--- NOTE | 2017-01-20 21:22 | PD.PROCEDR ---
Procedure Note Procedure Central Line Procedure Note Left femoral 7 Telugu 20 cm triple lumen catheter Diagnosis: Cardiogenic shock Indications: And for highly potent vasoactive substances Consent: Verbal consent was obtained from the Anesthesia: 1% lidocaine locally Description of the Procedure: The patient was placed in the supine position. The area was prepped and draped sterilely. A 19g needle was inserted under negative pressure aspiration and dark venous blood was obtained. A guidewire was inserted easily without resistance. A small incision was made using a #11 blade. Using a modified Seldinger technique, the dilator and 7 Telugu, 20 cm catheter were advanced over the guidewire without resistance. All ports were aspirated and flushed, and had brisk blood return. The line was secured at the skin using 2-0 silk interrupted sutures. A Biopatch and Transparent sterile dressing were applied. There were no immediate complications noted. There was minimal EBL. The patient tolerated the procedure well. Ultrasound Guidance: Ultrasound guidance was used to identify the left femoral vein. The vascular anatomy of the left groin was normal. The vessel was cannulated under direct, real-time ultrasound visualization. After placement of the guidewire, confirmation of the guidewire in the lumen of the vessel was made using ultrasound visualization, before dilation of the tract. I personally performed the procedure. Henrik Mehta MD Jan 20, 2017 21:22
--- NOTE | 2017-01-20 21:23 | PD.PROCEDR ---
Procedure Note Procedure Central Line Procedure Note Right IJ 8.5 Macedonian 10 cm Cordis introducer sheath Diagnosis: Cardiogenic shock Indications: Need for central pressure monitoring Consent: Verbal consent was obtained from the Anesthesia: Versed IV, lidocaine locally Description of the Procedure: The patient was placed in the supine, mild- Trendelenburg position. The area was prepped and draped sterilely. A 19g needle was inserted under negative pressure aspiration and dark venous blood was obtained. A guidewire was inserted easily without resistance. A small incision was made using a #11 blade. Using a modified Seldinger technique, the dilator and 8.5 Macedonian 10 cm catheter were advanced over the guidewire without resistance. All ports were aspirated and flushed, and had brisk blood return. The line was secured at the skin using 2-0 silk interrupted sutures. A Biopatch and Transparent sterile dressing were applied. There were no immediate complications noted. There was minimal EBL. The patient tolerated the procedure well. Ultrasound Guidance: Ultrasound guidance was used to identify the right internal jugular vein. The vascular anatomy of the right anterior neck was normal. The vessel was cannulated under direct, real-time ultrasound visualization. After placement of the guidewire, confirmation of the guidewire in the lumen of the vessel was made using ultrasound visualization, before dilation of the tract. A Chest x-ray has been ordered. I personally performed the procedure. Henrik Mehta MD Jan 20, 2017 21:23
--- NOTE | 2017-01-20 21:25 | MB ---
cc: LINN BURCH DATE OF CONSULTATION: 01/20/2017. REASON FOR CONSULTATION: 51-year-old male with a serum ferritin of 6495 with cardiovascular collapse. PATIENT PROFILE: The patient is unable to give a history. The history is obtained by reviewing records. The patient is intubated and sedated. According to the admitting note, there is no history of tobacco use and no history of excessive alcohol use. HISTORY OF PRESENT ILLNESS: The patient is 51-year-old male who developed progressive shortness of breath over one to two weeks. He went to the emergency room and was found to be in atrial fibrillation with rapid ventricular response. He has a history of sleep apnea. He uses a C-PAP machine. He developed cardiovascular collapse with hypotension and respiratory failures and had to be intubated. He had an echocardiogram performed on 01/20/2017 showing an ejection fraction of less than 20%. The left ventricular systolic function was severely reduced. He had a CT angiogram on 01/19/2017 which was negative for pulmonary embolism. There are small effusions and ground glass opacities consistent with mild edema. Other tests include: Hemoglobin of 14.9, white count 10,000, platelet count 191,000. His ferritin was 6495. Interestingly and very importantly the serum iron was 40, TIBC was 253 and the saturation is 15.8%. He developed renal failure. On 01/19/2017, the creatinine was 1.03. Current creatinine is 3.42. He was found to be in hepatic failure on 01/20 with total bilirubin of 1.6, AST 6100, ALT 4982, alkaline phosphatase 75. The initial liver function tests were only slightly abnormal: Bilirubin 1.0, AST 70, ALT 125, alkaline phosphatase was 79. PAST SURGICAL HISTORY: As per records: 1. Appendectomy. 2. Vasectomy. PAST MEDICAL HISTORY: 1. Hypertension. 2. Sleep apnea. MEDICATIONS PRIOR TO ADMISSION: 1. Xanax. 2. Bupropion. 3. Celexa. 4. Losartan. ALLERGIES: No known allergies. FAMILY HISTORY: Unavailable. REVIEW OF SYSTEMS: Unobtainable. PHYSICAL EXAMINATION: GENERAL: The physical exam reveals an acutely ill sedated gentleman on a ventilator. VITAL SIGNS: Pulse 100, blood pressure 120/80, O2 100% on FIO2 of 100%. HEAD, EYES, EARS, NOSE, THROAT: Head is normocephalic. The sclerae are unremarkable. LYMPHATIC: No adenopathy. HEART: Irregular rhythm. Rate 110. LUNGS: Diminished sounds at the bases. ABDOMEN: Abdomen obese. No hepatosplenomegaly. EXTREMITIES: +1 edema. NEUROLOGICAL EXAMINATION: The patient is sedated and there is no movement. ASSESSMENT: 1. The patient has a ferritin of 6495. At the same time, he has an iron of 40, TIBC of 253 and a saturation of 15%. If he had hematochromatosis causing the elevated ferritin, then we would be seeing iron levels as well as saturations that are significantly higher. He has no other stigmata of hemachromatosis, such as a previous history of organ failure or the discoloration of his skin that one sees with iron overload. I believe the elevated ferritin is due to liver injury. When the liver is severely and acutely injured, it releases stored iron and this results in an elevated ferritin. There are rare other diseases which can cause ferritins this high such as hemophagocytic lymphocytosis but he has nothing to suggest this. It appears that this is a result of the acute injury to the liver from a cardiomyopathy. PLAN: 1. At this point, I cannot recommend phlebotomies. 2. I will order genetic testing for hemochromatosis, but expect this to be normal. 3. It is my understanding that he is having an MRI of the heart and this would be a potential way of looking at iron stores. In any case, the iron saturation is not consistent with hemochromatosis or iron overload. I believe this is due to acute injury to the liver. MD KINA Godoy/LUCILA /7:31 PM /9:08 PM DICK
[2017-01-20] MEDS: ALBUMIN HUMAN 25% 25 GM/100 ML BAGP IV PRN ×2 (21:29→21:30)
--- NOTE | 2017-01-20 21:40 | PD.PROCEDR ---
Procedure Note Procedure Pulmonary Artery Catheter Procedure Note Right IJ 6 [place] pulmonary artery catheter Diagnosis: Cardiogenic shock Indications: And need for thermodilution cardiac output and central pressure monitoring Consent: Verbal consent was obtained from the , including the risks and benefits, specifically the risks of PA rupture, ventricular dysrhythmias, infection, bleeding, injury to cardiac structures Anesthesia: Versed IV Description of the Procedure: The patient was placed in the supine, mild-Reverse -Trendelenburg position. The area was prepped and draped sterilely. A 6 Fr pulmonary artery catheter was flushed, and all ports were checked, including PA , CVP, infusion port. The balloon was tested and inflated and deflated easily. Through an existing introducer sheath, the catheter was inserted to a depth of 20 cm and the balloon was inflated without resistance. The PA catheter was advanced under continuous waveform hemodynamic monitoring and appropriate RA, RV , PA, and PCWP waveforms were achieved. The balloon was deflated. The line was secured to the introducer sheath using a sterile cover. There were no immediate complications noted. There was minimal EBL. The patient tolerated the procedure well. PA catheter secured at: 57 cm. Hemodynamic Data: RAP: 17 mmHg RV: 40/12 mmHg PAP: 40/23 (30) mmHg PCWP: 23 mmHg achieved at 58 cm Mixed Venous SvO2: 65 % Cardiac Output: 5.2 L/min Cardiac Index: 2.2 A Chest x-ray has been ordered. I personally performed the procedure. Henrik Mehta MD Jan 20, 2017 21:40
--- NOTE | 2017-01-20 22:04 | PD.PROCEDR ---
Procedure Note Procedure Central Line Procedure Note Left IJ 14 [place] 20 cm dialysis catheter Diagnosis: Acute oligo anuric kidney injury requiring emergent renal replacement therapy Indications: Acute oligo anuric kidney injury requiring emergent renal replacement therapy Consent: Verbal consent was obtained from the , after weighing the risks and benefits, she agreed to proceed, risks included but were not limited to the discussion of pneumothorax, bleeding, infection, injury to blood vessels and surrounding structures. Anesthesia: Versed IV, lidocaine locally Description of the Procedure: The patient was placed in the supine, mild- Trendelenburg position. The area was prepped and draped sterilely. A 19g needle was inserted under negative pressure aspiration and dark venous blood was obtained. A guidewire was inserted easily without resistance. A small incision was made using a #11 blade. Using a modified Seldinger technique, the dilator and 14 [place], 20 cm catheter were advanced over the guidewire without resistance. All ports were aspirated and flushed, and had brisk blood return. The line was secured at the skin using 2-0 silk interrupted sutures. A Biopatch and Transparent sterile dressing were applied. There were no immediate complications noted. There was minimal EBL. The patient tolerated the procedure well. Ultrasound Guidance: Ultrasound guidance was used to identify the left internal jugular vein. The vascular anatomy of the left anterior neck was normal. The vessel was cannulated under direct, real-time ultrasound visualization. After placement of the guidewire, confirmation of the guidewire in the lumen of the vessel was made using ultrasound visualization, before dilation of the tract. A Chest x-ray has been ordered. I personally performed the procedure. Henrik Mehta MD Jan 20, 2017 22:04
[2017-01-20] MEDS: WATER IV PRN ×2 (22:20)
[2017-01-20] MEDS: NOREPINEPHRINE IV PRN ×2 (22:20)
[2017-01-20] MEDS: DEXTROSE 5% IV PRN ×2 (22:20)
[2017-01-20] MEDS: CHLORHEXIDINE 0.12% (ORAL KIT) 15 ML CUP MT SCH (22:21)
[2017-01-20 22:40] LABS: BACTERIA, URINE OCC /hpf; BLOOD, URINE LARGE (NEG); GLUCOSE,URINE NEG (NEG); KETONE, URINE NEG (NEG); MUCUS URINE FEW /lpf (OCC); NITRITE,URINE NEG (NEG); PH, URINE 5.5 (5.0-8.5); URINE COLOR YELLOW (YELLW/STRAW)
[2017-01-20 22:42] LABS: COMMENT (UR) CATH-CULTURE IND; CULTURE IF INDICATED CATH CULTURE IND
[2017-01-20] MEDS: RESP: ALBUTEROL 2.5 MG/IPRATROPIUM 0.5 MG NEB (SCH) INH (22:49)
[2017-01-20] MEDS ORDERED: DIGOXIN 0.5 MG/2 ML VIAL ONE (23:22)
[2017-01-20] MEDS ORDERED: CALCIUM CHLORIDE 10% SOLN 1 GRAM/10 ML SYR IV ONE (23:45)
[2017-01-21] VITALS (18 sets, daily range): BP systolic 85–127; BP diastolic 50–72; PULSE 104–168; RESP 20–25; TEMP 98.3–99.4; O2SAT 90–99
[2017-01-21] MEDS ORDERED: CALCIUM CHLORIDE INJ 2 GM in SODIUM CHLORIDE 0.9% INJ 100 ML IV ONE (00:30)
[2017-01-21] MEDS: CHLORHEXIDINE GLUCONATE 2 % 1 PACK (2 CLOTHS)(taper/protocol) TOPICAL SCH (04:00)
[2017-01-21] MEDS: INSULIN NovoLIN REGULAR SUPPLEMENTAL SCALE SQ SCH ×6 (04:00→20:00)
[2017-01-21] MEDS: RESP: ALBUTEROL 2.5 MG/IPRATROPIUM 0.5 MG NEB (SCH) INH ×4 (04:14→21:09)
--- NOTE | 2017-01-21 04:49 | RADRPT ---
EXAM DATE/TIME: 01/21/2017 03:59 [facility] COMPARISON: CHEST SINGLE AP, January 20, 2017, 15:06. INDICATIONS : Shortness of breath, possible pulmonary disease. MEDICAL HISTORY : Hypertension. A-Fib SURGICAL HISTORY : None. ENCOUNTER: Subsequent ACUITY: 3 days PAIN SCORE: Non-responsive. LOCATION: Bilateral chest FINDINGS: A single view of the chest demonstrates the endotracheal tube, nasogastric tube, left IJ vas catheter and right IJ central venous catheter all in good position. Moderate-sized bilateral pleural effusion s with small lung volumes. Cardiac silhouette remains enlarged unchanged. The cardiomediastinal cont ours are unremarkable. Osseous structures are intact. CONCLUSION: Tubes and catheters are in good position. Small lung volumes bilaterally Rob Gerber MD on January 21, 2017 at 4:47 Board Certified Radiologist. This report was verified electronically.
[2017-01-21] MEDS: CALCIUM CHLORIDE INJ 1 GM in SODIUM CHLORIDE 0.9% INJ 100 ML IV PRN ×6 (05:09→20:52)
[2017-01-21 05:13] LABS: APTT (PATIENT) 25.2 SEC (24.3-30.1); INTERNATIONAL NORMALIZED RATIO 1.7 RATIO; PROTHROMBIN TIME - PATIENT 19.4 SEC (9.8-11.6)
[2017-01-21 05:16] LABS: BLOOD GAS BASE EXCESS 1.1 mmol/L (-2-2); BLOOD GAS CARBOXYHEMOGLOBIN 1.5 % (0-4); BLOOD GAS HCO3 25 mmol/L (22-26); BLOOD GAS METHEMOGLOBIN 0.9 % (0-2); BLOOD GAS O2 HGB SATURATION 92 % (90-100); BLOOD GAS OXYGEN CONTENT 16.1 Vol % (12.0-20.0); BLOOD GAS PCO2 34 mmHg (38-42); BLOOD GAS PO2 76 mmHg (61-120); BLOOD GAS TOTAL HGB 12.3 G/DL (12.0-16.0); CRITICAL VALUE NO; DRAW SITE ART LINE; FIO2 75 %; OXYGEN DEVICE VENTILATOR; STAT NO; TEMP CORR TO 98.6; VENT SETTINGS A/C20/640/+10PEEP
[2017-01-21 05:23] LABS: HEMATOCRIT 39.2 % (39.0-51.0); MEAN CELL VOLUME 80.5 FL (80.0-100.0); MEAN CORPUSCULAR HEMOGLOBIN 25.6 PG (27.0-34.0); MEAN CORPUSCULAR HGB CONC 31.8 % (32.0-36.0); PLATELET COUNT 98 TH/MM3 (150-450); RED BLOOD COUNT 4.87 MIL/MM3 (4.50-5.90); RED CELL DISTRIBUTION WIDTH 15.6 % (11.6-17.2); WHITE BLOOD COUNT 17.4 TH/MM3 (4.0-11.0)
[2017-01-21 05:28] LABS: BICARBONATE 27.3 MEQ/L (21.0-32.0)
[2017-01-21 05:35] LABS: CALCIUM-PROTEIN CORRECTED 8.4 MG/DL (8.5-10.1); DIGOXIN 1.5 NG/ML (0.8-2.0); REVIEW FLAG FINAL; TOTAL BILIRUBIN ADULT 1.4 MG/DL (0.2-1.0)
[2017-01-21] MEDS ORDERED: ALBUMIN HUMAN 25% 25 GM/100 ML BAGP IV ONE (06:00)
[2017-01-21] MEDS: DOBUTamine PREMIX DRIP 250 ML IV SCH ×4 (06:01→18:25)
--- NOTE | 2017-01-21 08:11 | HHI.CCPN ---
Subjective Remarks/Hospital Course Hospital Course: 51-year-old male with a history of hypertension, presents for evaluation of ongoing and worsening symptoms of shortness of breath 1 week duration associated with chest pressure. Patient states, around 3 AM he was having significant difficulty breathing and decided to come to the ED. This has been an ongoing problem for which patient was supposed to get 2-D echo evaluation as an outpatient. While in emergency department, patient was found to be in A. fib. He denies any previous history of atrial fibrillation, this was also asymptomatic without palpitations or chest pain. CTA was negative for PE and chest x-ray did not reveal any pulmonary congestion. Patient had minimally elevated cardiac enzyme and a mildly elevated BNP of 233. He was started on Cardizem drip for rate control of atrial fibrillation and was admitted to CICU. senior asic engineer on January 20 rapid response was called due to patient's hypotension and hypoxemia. Subjective: 01/20: Seen and examined initially around 09:30am. Patient with severe dyspnea, agitation, anxiety. In talking with the patient and his , he has a history that over the last approximately 1-2 years she's felt progressively short of breath and can no longer do the activities that he used to be able to do. He can only walk approximately 50 feet without getting winded. He denies any chest pain. He does say that he was diagnosed with sleep apnea approximately a year ago was placed on a BiPAP machine and this did in fact help some of his dyspnea, but he still had significant fatigue with walking even short distances. He and his both note that approximately back in August he had a flulike illness with significant muscle aches, malaise, headache. More recently , over the last 1-2 weeks he has had rapidly progressive shortness of breath, dyspnea on exertion, orthopnea, paroxysmal nocturnal dyspnea. This is presented also in the form of worsening anxiety is becoming very anxious about not being able to catch his breath. He presented to the emergency department yesterday with these complaints and was found to be in new onset atrial fibrillation and mildly hypoxemic. He was given 1 dose of diuretic. Overnight he was started on a diltiazem drip and became severely hypotensive with this. 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 He has been followed with quarterly LFTs which have always been in the mid 70s range per her. Otherwise he has not had any significant past medical history. He has a grandfather that of an LA in his 70s, and a grandmother that of a stroke in her 70s, but no other family history of cardiovascular disease. He has never smoked. He is a very rare drinker, and his confirms this that it is rare that he has any alcohol. He denies any illicit drug use. Review systems is negative unless previous stated. On my initial evaluation, the patient is restless, RASS +1, oriented but confused, CAM +. His extremities are almost mottled. He has severely delayed cap refill. His extremities are cool, very poorly perfused appearing. He has grossly elevated JVD above the level of mandible. I performed a bedside critical care ultrasound which demonstrated what appears to be severely reduced global LV function, very dilated IVC, no pericardial effusion. His troponins are only mildly elevated at 0.08 and this does not appear to be acute coronary syndrome. Highest on my differential at this point would be a new acute onset cardiomyopathy, likely nonischemic given his history. I immediately started the patient on dobutamine IV. I also martin a lactate which resulted at 7.4. I martin a ScVO2 which was 40%, suggestive of severe cardiogenic shock. I attempted arterial line placement, but the patient was too confused and the radial artery too poorly perfused for successful cannulation. At this point, the patient also had not made any urine throughout the day and was refusing raymundo catheter placement. Given his worsening shock and clinical decompensation, after discussion with his , decision was made to intubate the patient (see separate procedure note for details). After intubating the patient, I placed femoral arterial and central lines. He was then transferred to the CVICU where we placed PA catheter. The patient was given one attempt at forced diuresis with Bumex 4mg iv, diamox 500mg iv, diuril 500mg iv which did not produce any significant urine. Nephrology was emergently consulted and I placed emergent dialysis catheter. Starting PA numbers: RAP 17, PAP 38/23 (30), PCWP 23. CI 2.2, svo2 65% which has improved from prior 40%. Patient after being intubated was also severely hypoxemic with spo2 85% on 100% fio2. CXR demonstrates severe bilateral airspace disease consistent with severe pulmonary edema. I again discussed his care with Dr. Browne and we both agree that for his afib and rate control, digoxin (carefully dosed given renal dysfunction) would be the most appropriate therapy. We started with 0.5mg iv x 1 with a plan for a total of up to 1.25mg iv dosed in small doses as a load, and no maintenance therapy, with serial dig levels. 01/21: Patient remains on multiple pressors this a.m..PCWP 26, CI 4.2, PAP 44/ 26. Digoxin level I.5. Plans for dialysis today. Continued monitoring of elevated LFTs secondary to shock liver. Objective Vital Signs Date Time Temp Pulse Resp B/P (MAP) Pulse Ox O2 Delivery O2 Flow Rate FiO2 01/21/17 07:00 0 0/0 01/21/17 04:35 93 75 01/21/17 04:00 99.1 20 01/21/17 04:00 Mechanical Ventilator 01/20/17 09:00 6.00 Intake and Output 01/21/17 01/21/17 01/22/17 08:00 16:00 00:00 Intake Total 1296 ml Output Total 293 ml Balance 1003 ml Result Diagram: 01/21/17 0430 01/21/17 0430 Other Results Laboratory Tests Test 01/20/17 11:50 01/20/17 15:06 01/21/17 04:55 Blood Gas Puncture Site R ARM ART LINE ART LINE Blood Gas Patient Temperature 98.6 98.6 98.6 Venous Blood pH 7.19 (7.360-7.400) Venous Blood Partial Pressure CO2 40 mmHg (44-48) Venous Blood Partial Pressure O2 35 mmHg (35-40) Venous Blood HCO3 15 mmol/L (22-26) Venous Blood Oxygen Saturation 46 % (70-76) Venous Blood Oxygen Content 10.1 Vol % (9.0-17.0) Venous Blood Base Excess -12.0 mmol/L (-2-2) Oxygen Delivery Device NASAL CANNULA VENTILATOR VENTILATOR Blood Gas Liter Flow 6 L/M Blood Gas HCO3 20 mmol/L (22-26) 25 mmol/L (22-26) Blood Gas Base Excess -4.4 mmol/L (-2-2) 1.1 mmol/L (-2-2) Blood Gas Oxygen Saturation 90 % (90-100) 92 % (90-100) Arterial Blood pH 7.37 (7.380-7.420) 7.47 (7.380-7.420) Arterial Blood Partial Pressure CO2 36 mmHg (38-42) 34 mmHg (38-42) Arterial Blood Partial Pressure O2 71 mmHg (61-120) 76 mmHg (61-120) Arterial Blood Oxygen Content 19.0 Vol % (12.0-20.0) 16.1 Vol % (12.0-20.0) Arterial Blood Carboxyhemoglobin 1.2 % (0-4) 1.5 % (0-4) Arterial Blood Methemoglobin 1.0 % (0-2) 0.9 % (0-2) Blood Gas Hemoglobin 15.0 G/DL (12.0-16.0) 12.3 G/DL (12.0-16.0) Blood Gas Ventilator Setting AC/20/720/PEEP10 A/C20/640/+10PEEP Blood Gas Inspired Oxygen 100 % 75 % Imaging Last Impressions Chest X-Ray 01/21/17 0600 Signed Impressions: Service Date/Time: Saturday, January 21, 2017 03:59 - CONCLUSION: Tubes and catheters are in good position. Small lung volumes bilaterally Rob Gerber MD CT Angiography 01/19/17 0000 Signed Impressions: Service Date/Time: December 06:36 - CONCLUSION: 1. Negative for pulmonary embolism. Small effusions with ground glass opacity characteristic of mild edema. There is also peribronchial thickening. Arsenio Amaya MD Last 24 hours Impressions Chest X-Ray 01/20/17 0000 Signed Impressions: Service Date/Time: Friday, January 20, 2017 00:29 - CONCLUSION: Stable examination. Rob Gerber MD Objective Remarks GENERAL: Critically ill-appearing , morbidly obese gentleman, intubated and sedated SKIN: Warm and dry. HEAD: Normocephalic. EYES: No scleral icterus. No injection or drainage. NECK: Supple, trachea midline. severe JVD above mandible. CARDIOVASCULAR: tachycardic rate, irregularly irregular rhythm. Telemetry- atrial fibrillation rate in 140s. RESPIRATORY: Mechanical ventilation, distant bilateral breath sounds GASTROINTESTINAL: Abdomen obese, soft, non-tender, nondistended. Hypoactive bowel sounds. Copious NG tube secretions low intermittent wall suction MUSCULOSKELETAL: 2+ peripheral edema in extremities. mo NEURO EXAM: RASS +1. agitated. oriented but confused. CAM+. follows commands. anxious. A/P Assessment and Plan Assessment: 51yM with past history of ?ZHANG Cirrhosis and obstructive sleep apnea now with what appears to be New-onset Acute Severe Dilated Cardiomyopathy in decompensating cardiogenic shock and multi-organ failure, shock liver, acute kidney injury requiring emergent renal replacement therapy, volume overload, pulmonary edema, acute hypoxic respiratory failure, lactic acidosis. Condition Critical. Plan by systems: Neurologic: Agitated delirium secondary to hypoxia secondary to low cardiac output - Versed morning infusion for goal RASS -2. will not tolerate propofol or fentanyl secondary to degree of cardiogenic shock - Neuro checks per ICU protocol Respiratory: Acute hypoxic respiratory failure Pulmonary edema Obstructive sleep apnea - intubated for worsening hypoxemia-01/20 - vent bundle, hob at 30 degrees, nebs - no SBT at this time secondary to hemodynamic instability Cardiovascular: Cardiogenic shock New acute severe dilated cardiomyopathy- EF 15% Elevated Troponin secondary to demand ischemia/Type II NSTEMI Acute Systolic Congestive Heart Failure Exacerbation New-onset Atrial Fibrillation with Rapid Ventricular Response - cardiology following: Dr. Browne - 01/20 2d echo -ejection fraction less than 20% - PAP - trend thermodilution cardiac outputs - no evidence of active ACS. currently coagulopathic. will not anticoagulate at this time - digoxin 0.5mg iv x 1 (01/20) trend dig levels. 1.5 - would prefer not to amio load or convert if possible, but we may be forced to if instability continues. - trend troponins until downtrending. - trend lactates via IL-GEM, trend ABGs. - will need LHC/RHC - national shortage of dobutamine, hospital is running out. will transition to Milrinone currently at 0.2 mcg/kg/min. - Patient tentatively scheduled for MRI, unable to perform at this time secondary to hemodynamic instability Renal: Severe acute kidney injury requiring emergent Renal replacement therapy Acute intravascular volume overload Anuria -- Strict I/Os - Nephrology following, Dr. Nicole - Hemodialysis per nephrology - trend renal function FEN/GI: Acute intravascular volume overload Shock liver Possible history of Zhang cirrhosis Morbid obesity Lactic acidosis Anion gap metabolic acidosis -Remain NPO while in shock- OGT to LIWS - trend LFTs - F/U hepatitis panel - IHD as above. - Replete electrolytes per ICU protocol Heme/ID: Coagulopathy secondary to acute liver failure Elevated ferritin - trend daily coags - Hematology consulted- negative for Hemachromatosis - Monitor CBC - no infectious etiology currently. post-viral cardiomyopathy could be a cause of new-onset NICM, but no evidence of active infection. Endocrine: Hyperglycemia of critical illness -- SSI, medium scale, every 4 -- TSH, free T4 WNL Prophylaxis: GI Prophylaxis - Pepcid 10mg q12h (renally adjusted) DVT Prophylaxis -- SCDs -- hold pharmacologic DVT prophylaxis given coagulopathy. will re-eval daily. Lines: - 01/20 left femoral arterial line - 01/20 left femoral triple lumen catheter - 01/20 right IJ 8.5 Fr Cordis introducer sheath - 01/20 right IJ 6 Fr PA Catheter - 01/20 left IJ 14 Fr 20cm VasCath - 01/20 Raymundo Dispo: -- Condition Critical CODE STATUS: Of note, the patient and his both confirmed to me that the patient has wanted to be DNR for many years. In discussions, he had a family member who sustained an anoxic brain injury after CPR and was in a persistent vegetative state, and this is unacceptable to the patient. The patient has had long-standing known and expressed wishes that he did not want CPR or life sustaining measures. After discussion particularly with the , I made it clear that we have not completed our workup of this new cardiomyopathy, and we are unsure if this is a reversible process. The patient was in favor of intubation and so we proceeded with that. I expressed my concern that in his acute and critical state, ventricular dysrhythmias are common, and successful cardioversion or defibrillation out of these could still be lifesaving with minimal risk of severe anoxic brain injury. After this discussion, we agreed that the patient would accept electrical cardioversion or defibrillation, particularly in the event that he sustained a non-perfusing or unstable dysrhythmias, but congruent with his wishes, we would not pursue CPR or full ACLS as this would not be keeping with his wishes. The patient is an alternate code: Intubation and electrical shocks. Discussed with RESTAURANT GENERAL MANAGER at bedside. This patient remains critically ill with one or more organ systems which are or may become a threat to life. I have spent in excess of 30 minutes discontinuously in the care and management of this patient. This time is exclusive of procedures, and includes, but is not limited to, evaluation of the patient, review of the medical record, discussions with family, consultants, nursing staff, or respiratory therapy, and documentation in the medical record. Physician Sherry Salazar MD Jan 21, 2017 08:11
[2017-01-21] MEDS: MIDAZOLAM 100 MG/100 ML INJ 100 ML IV PRN ×2 (08:13→22:36)
[2017-01-21] MEDS: CHLORHEXIDINE 0.12% (ORAL KIT) 15 ML CUP MT SCH ×2 (08:17→21:26)
[2017-01-21] MEDS: buPROPion HCL 150 MG SUSTAINED RELEASE TAB PO SCH (09:00)
[2017-01-21] MEDS: ASPIRIN EC 81 MG TABEC PO SCH (09:00)
[2017-01-21] MEDS: WATER IV PRN ×2 (09:08)
[2017-01-21] MEDS: DEXTROSE 5% IV PRN ×2 (09:08)
[2017-01-21] MEDS: NOREPINEPHRINE IV PRN ×2 (09:08)
[2017-01-21] MEDS: SODIUM CHLORIDE 0.9% FLUSH 10 ML FLUSH IV FLUSH SCH ×2 (09:21→21:25)
[2017-01-21] MEDS: FAMOTIDINE 20 MG/2 ML VIAL IV PUSH SCH ×2 (09:21→21:25)
[2017-01-21] MEDS: MILRINONE INJ 20 MG in SODIUM CHLORIDE 0.9% INJ 80 ML IV PRN ×2 (09:25→20:18)
[2017-01-21] MEDS: fentaNYL DRIP 250 ML IV PRN (10:35)
--- NOTE | 2017-01-21 11:59 | HHI.NPPN ---
Subjective History of Present Illness 51 year old male with CHF,ARF, morbid obesity, A fib EF 20%, Respiratory failure on Vent Objective Data Data 01/21/17 01/22/17 19:00 07:00 Intake Total 29 ml Balance 29 ml IV Total 29 ml Vital Signs Date Time Temp Pulse Resp B/P (MAP) Pulse Ox O2 Delivery O2 Flow Rate FiO2 01/21/17 11:52 163 128/67 01/21/17 11:00 166 127/60 (82) 126/59 (81) 01/21/17 11:00 98.7 166 22 127/60 (82) 95 126/59 (81) 01/21/17 11:00 95 Mechanical Ventilator 75 01/21/17 11:00 165 01/21/17 11:00 75 01/21/17 09:25 164 98/62 01/21/17 09:22 92 75 01/21/17 07:48 91 75 01/21/17 07:00 98.5 146 20 108/55 (72) 90 97/64 (75) 01/21/17 07:00 75 01/21/17 07:00 146 108/55 (72) 97/64 (75) 01/21/17 07:00 0 0/0 01/21/17 07:00 147 120/50 01/21/17 07:00 148 01/21/17 07:00 91 Mechanical Ventilator 75 01/21/17 06:01 140 92/61 01/21/17 05:00 140 92/61 01/21/17 05:00 140 92/61 01/21/17 05:00 140 92/61 (71) 01/21/17 04:35 93 75 01/21/17 04:22 90 60 01/21/17 04:00 99.1 119 20 96/50 (65) 90 86/52 (63) 01/21/17 04:00 119 01/21/17 04:00 75 01/21/17 04:00 90 Mechanical Ventilator 75 01/21/17 03:00 120 113/65 (81) 01/21/17 02:33 132 112/60 01/21/17 01:22 92 60 01/21/17 01:00 112 103/58 (73) 01/21/17 00:00 104 01/21/17 00:00 91 Mechanical Ventilator 60 01/21/17 00:00 98.8 104 20 89/56 (67) 91 01/20/17 23:03 95 80 01/20/17 23:00 60 01/20/17 23:00 120 90/53 (65) 01/20/17 22:19 127 119/64 01/20/17 21:00 137 122/63 (82) 01/20/17 20:40 94 80 01/20/17 20:00 110 01/20/17 20:00 98.8 111 22 96/56 (69) 90 01/20/17 20:00 90 Mechanical Ventilator 80 01/20/17 20:00 80 01/20/17 19:30 108/62 (77) 01/20/17 16:53 91 128/71 01/20/17 16:52 106 94/52 01/20/17 16:00 141 20 114/68 (83) 88 128/71 (90) 01/20/17 16:00 100 01/20/17 16:00 88 100 01/20/17 16:00 141 114/68 (83) 128/71 (90) 01/20/17 16:00 88 Mechanical Ventilator 100 01/20/17 16:00 125 01/20/17 15:30 100 100 01/20/17 15:00 139 01/20/17 14:15 91 100 01/20/17 14:00 97 01/20/17 13:00 97 01/20/17 12:00 98.5 97 27 85 01/20/17 12:00 97 -: 01/21/17 0430 01/21/17 0430 Microbiology 01/20/17 Urine Culture, Received Pending Physical Exam General Appearance: Well Developed, Obese Neck Neck Exam: Neck Supple Pulmonary Resp Exam: Decreased Bases Cardiology CV Exam: Arrhythmia Gastrointestinal/Abdomen GI Exam: Soft, Positive Bowel Movement, Distended Extremeties Extremities Exam: Trace Edema Assessment/Plan Problem List: (1) Acute renal failure ICD Codes: N17.9 - Acute kidney failure, unspecified Plan: seen during hemodialysis UF 4 L 3 K bath tolerating it well discussed with family continue supportive care EF 20% Dr. Nicole to follow on Monday (2) CHF (congestive heart failure) ICD Codes: I50.9 - Heart failure, unspecified Plan: Getting fluid off with HD (3) Respiratory failure ICD Codes: J96.90 - Respiratory failure, unspecified, unspecified whether with hypoxia or hypercapnia (4) Atrial fibrillation with RVR ICD Codes: I48.91 - Unspecified atrial fibrillation Status: Acute Plan: RVR on Milrinone Paul Molina MD Jan 21, 2017 11:59
[2017-01-21] MEDS: GENTAMICIN SULFATE (DIALYSIS USE ONLY) 20 MG/2 ML VIAL IV PRN (12:49)
[2017-01-21] MEDS: HEPARIN SODIUM - IV 10,000 UNITS/10 ML VIAL PRN (12:49)
[2017-01-21] MEDS: SODIUM CHLOR 0.9% 1000 ML INJ 1,000 ML OTHER PRN (12:49)
[2017-01-21] MEDS: ALBUMIN HUMAN 25% 25 GM/100 ML BAGP IV PRN (13:00)
[2017-01-21] MEDS: ESCITALOPRAM OXALATE 20 MG TAB PO SCH (21:00)
[2017-01-21] MEDS ORDERED: DIGOXIN 0.5 MG/2 ML VIAL IV PUSH ONE (22:15)
[2017-01-21] MEDS ORDERED: DIGOXIN 0.5 MG/2 ML VIAL ONE (22:27)
[2017-01-22] VITALS (14 sets, daily range): BP systolic 83–126; BP diastolic 49–72; PULSE 111–178; RESP 20–25; TEMP 97.7–100.3; O2SAT 93–98
[2017-01-22] MEDS ORDERED: AMIODARONE INJ 150 MG in DEXTROSE 5% IN WATER 100ML INJ 100 ML IV ONE ×4 (03:32→18:47)
[2017-01-22] MEDS: CALCIUM CHLORIDE INJ 1 GM in SODIUM CHLORIDE 0.9% INJ 100 ML IV PRN ×3 (03:52→15:39)
[2017-01-22] MEDS: CHLORHEXIDINE GLUCONATE 2 % 1 PACK (2 CLOTHS)(taper/protocol) TOPICAL SCH (04:00)
[2017-01-22] MEDS: INSULIN NovoLIN REGULAR SUPPLEMENTAL SCALE SQ SCH ×6 (04:00→20:00)
[2017-01-22] MEDS: RESP: ALBUTEROL 2.5 MG/IPRATROPIUM 0.5 MG NEB (SCH) INH ×3 (04:24→16:19)
--- NOTE | 2017-01-22 05:17 | PD.PROCEDR ---
Procedure Note Procedure Cardioversion The procedure was done as an emergency procedure due to rapid A. fib with RVR at the rate of 190 and severe hypotension. The pads applied in the anterior and posterior approach. With synchronized biphasic waveform at 100, 150, then 200 J, 3 shocks where deliberate with successful in restoring sinus rhythm. The patient had some occasional PACs noticed with occasional sinus tachycardia. The patient had no immediate post-procedure complications. The rhythm was maintained and 12-lead EKG was requested. IMPRESSION: Successful direct current cardioversion with sabianism of sinus rhythm from atrial fibrillation with no immediate complication. Arvind Thomas MD Jan 22, 2017 05:17
[2017-01-22] MEDS: fentaNYL DRIP 250 ML IV PRN (05:27)
--- NOTE | 2017-01-22 05:39 | RADRPT ---
EXAM DATE/TIME: 01/22/2017 04:16 [facility] COMPARISON: No previous studies available for comparison. INDICATIONS : Abdominal distention. MEDICAL HISTORY : Hypertension. A-Fib SURGICAL HISTORY : None. ENCOUNTER: Subsequent ACUITY: 4 - 6 days PAIN SCORE: Non-responsive. LOCATION: Bilateral Abdomen FINDINGS: Supine view of the abdomen was performed. The abdominal bowel gas pattern is normal. Catheter overli es the bladder and the left inguinal region. No abnormal masses, calcifications, or organomegaly is seen. The osseous structures are unremarkable. CONCLUSION: Normal examination. Rob Gerber MD on January 22, 2017 at 5:37 Board Certified Radiologist. This report was verified electronically.
[2017-01-22 05:42] LABS: BLOOD GAS BASE EXCESS -0.9 mmol/L (-2-2); BLOOD GAS CARBOXYHEMOGLOBIN 1.3 % (0-4); BLOOD GAS HCO3 23 mmol/L (22-26); BLOOD GAS O2 HGB SATURATION 93 % (90-100); BLOOD GAS OXYGEN CONTENT 15.5 Vol % (12.0-20.0); BLOOD GAS PCO2 39 mmHg (38-42); BLOOD GAS PO2 83 mmHg (61-120); BLOOD GAS TOTAL HGB 11.8 G/DL (12.0-16.0); CRITICAL VALUE NO; DRAW SITE ART LINE; FIO2 70 %; OXYGEN DEVICE VENTILATOR; STAT NO; TEMP CORR TO 98.6; VENT SETTINGS AC20/640/10PEEP
[2017-01-22 05:42] LABS: AUTOMATED NEUTROPHIL # 10.5 TH/MM3 (1.8-7.7); BASOPHIL % 0.2 % (0.0-2.0); EOSINOPHIL # 0.1 TH/MM3 (0-0.4); HEMATOCRIT 37.1 % (39.0-51.0); LYMPH % 6.9 % (9.0-44.0); LYMPHOCYTE # 0.8 TH/MM3 (1.0-4.8); MEAN CELL VOLUME 81.3 FL (80.0-100.0); MEAN CORPUSCULAR HEMOGLOBIN 26.2 PG (27.0-34.0); MEAN CORPUSCULAR HGB CONC 32.2 % (32.0-36.0); MONO % 3.5 % (0.0-8.0); NEUT % 88.4 % (16.0-70.0); PLATELET COUNT 85 TH/MM3 (150-450); RED BLOOD COUNT 4.57 MIL/MM3 (4.50-5.90); RED CELL DISTRIBUTION WIDTH 15.6 % (11.6-17.2); WHITE BLOOD COUNT 11.8 TH/MM3 (4.0-11.0)
--- NOTE | 2017-01-22 05:46 | RADRPT ---
EXAM DATE/TIME: 01/22/2017 04:14 [facility] COMPARISON: CHEST SINGLE AP, January 21, 2017, 3:59. INDICATIONS : Shortness of breath, possible pulmonary disease. MEDICAL HISTORY : Hypertension. A-Fib SURGICAL HISTORY : None. ENCOUNTER: Subsequent ACUITY: 4 - 6 days PAIN SCORE: Non-responsive. LOCATION: Bilateral chest FINDINGS: A single view of the chest demonstrates the endotracheal, nasogastric tube, right IJ central venous c atheter and left IJ vas catheter all in good position. There is bilateral perihilar vascular congesti on. Mild bibasilar consolidations with blunting of the left costophrenic angle suspicious for a devel oping pleural effusion. The cardiac silhouette is widened . Osseous structures are intact. CONCLUSION: Tubes and catheters as described above. Diffuse pulmonary vascular congestion with overall better aer ated chest on the previous day Rob Gerber MD on January 22, 2017 at 5:43 Board Certified Radiologist. This report was verified electronically.
[2017-01-22 05:48] LABS: HEMO FLAGS DIFF FINAL
[2017-01-22] MEDS: AMIODARONE INJ 450 MG in DEXTROSE 5% IN WATE(EXCEL) INJ 250 ML IV SCH ×4 (05:50→10:53)
[2017-01-22 05:59] LABS: APTT (PATIENT) 28.1 SEC (24.3-30.1); INTERNATIONAL NORMALIZED RATIO 1.6 RATIO; PROTHROMBIN TIME - PATIENT 17.8 SEC (9.8-11.6)
[2017-01-22 06:47] LABS: ALKALINE PHOSPHATASE 68 U/L (45-117); ALT (GPT) 3503 U/L (12-78); ANION GAP 10 MEQ/L (5-15); AST (GOT) 2179 U/L (15-37); BLOOD UREA NITROGEN 51 MG/DL (7-18); CHLORIDE 103 MEQ/L (98-107); DIGOXIN 1.5 NG/ML (0.8-2.0); GLOMERULAR FILTRATION RATE 11 ML/MIN (>89); MAGNESIUM 2.1 MG/DL (1.5-2.5); SODIUM (NA) 141 MEQ/L (136-145); TOTAL BILIRUBIN ADULT 3.3 MG/DL (0.2-1.0)
[2017-01-22] MEDS: DOBUTamine PREMIX DRIP 250 ML IV SCH ×2 (07:05→18:48)
[2017-01-22] MEDS ORDERED: HEPARIN-D5W 25,000 U/250 ML 250 ML IV PRN (07:39)
[2017-01-22] MEDS: CHLORHEXIDINE 0.12% (ORAL KIT) 15 ML CUP MT SCH ×2 (08:33→20:48)
[2017-01-22] MEDS: MILRINONE INJ 20 MG in SODIUM CHLORIDE 0.9% INJ 80 ML IV PRN ×2 (08:33→19:33)
[2017-01-22 08:40] LABS: HEMATOCRIT 37.5 % (39.0-51.0); MEAN CORPUSCULAR HEMOGLOBIN 25.3 PG (27.0-34.0); MEAN CORPUSCULAR HGB CONC 31.2 % (32.0-36.0); PLATELET COUNT 88 TH/MM3 (150-450); RED BLOOD COUNT 4.63 MIL/MM3 (4.50-5.90); RED CELL DISTRIBUTION WIDTH 15.8 % (11.6-17.2); WHITE BLOOD COUNT 12.5 TH/MM3 (4.0-11.0)
[2017-01-22 08:44] LABS: REVIEW FLAG FINAL
[2017-01-22 08:47] LABS: APTT (PATIENT) 26.8 SEC (24.3-30.1); INTERNATIONAL NORMALIZED RATIO 1.7 RATIO
--- NOTE | 2017-01-22 08:56 | HHI.CCPN ---
Subjective Remarks/Hospital Course Hospital Course: 51-year-old male with a history of hypertension, presents for evaluation of ongoing and worsening symptoms of shortness of breath 1 week duration associated with chest pressure. Patient states, around 3 AM he was having significant difficulty breathing and decided to come to the ED. This has been an ongoing problem for which patient was supposed to get 2-D echo evaluation as an outpatient. While in emergency department, patient was found to be in A. fib. He denies any previous history of atrial fibrillation, this was also asymptomatic without palpitations or chest pain. CTA was negative for PE and chest x-ray did not reveal any pulmonary congestion. Patient had minimally elevated cardiac enzyme and a mildly elevated BNP of 233. He was started on Cardizem drip for rate control of atrial fibrillation and was admitted to CICU. kiln puller on January 20 rapid response was called due to patient's hypotension and hypoxemia. Subjective: 01/20: Seen and examined initially around 09:30am. Patient with severe dyspnea, agitation, anxiety. In talking with the patient and his , he has a history that over the last approximately 1-2 years she's felt progressively short of breath and can no longer do the activities that he used to be able to do. He can only walk approximately 50 feet without getting winded. He denies any chest pain. He does say that he was diagnosed with sleep apnea approximately a year ago was placed on a BiPAP machine and this did in fact help some of his dyspnea, but he still had significant fatigue with walking even short distances. He and his both note that approximately back in August he had a flulike illness with significant muscle aches, malaise, headache. More recently , over the last 1-2 weeks he has had rapidly progressive shortness of breath, dyspnea on exertion, orthopnea, paroxysmal nocturnal dyspnea. This is presented also in the form of worsening anxiety is becoming very anxious about not being able to catch his breath. He presented to the emergency department yesterday with these complaints and was found to be in new onset atrial fibrillation and mildly hypoxemic. He was given 1 dose of diuretic. Overnight he was started on a diltiazem drip and became severely hypotensive with this. 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 He has been followed with quarterly LFTs which have always been in the mid 70s range per her. Otherwise he has not had any significant past medical history. He has a grandfather that of an DC in his 70s, and a grandmother that of a stroke in her 70s, but no other family history of cardiovascular disease. He has never smoked. He is a very rare drinker, and his confirms this that it is rare that he has any alcohol. He denies any illicit drug use. Review systems is negative unless previous stated. On my initial evaluation, the patient is restless, RASS +1, oriented but confused, CAM +. His extremities are almost mottled. He has severely delayed cap refill. His extremities are cool, very poorly perfused appearing. He has grossly elevated JVD above the level of mandible. I performed a bedside critical care ultrasound which demonstrated what appears to be severely reduced global LV function, very dilated IVC, no pericardial effusion. His troponins are only mildly elevated at 0.08 and this does not appear to be acute coronary syndrome. Highest on my differential at this point would be a new acute onset cardiomyopathy, likely nonischemic given his history. I immediately started the patient on dobutamine IV. I also martin a lactate which resulted at 7.4. I martin a ScVO2 which was 40%, suggestive of severe cardiogenic shock. I attempted arterial line placement, but the patient was too confused and the radial artery too poorly perfused for successful cannulation. At this point, the patient also had not made any urine throughout the day and was refusing raymundo catheter placement. Given his worsening shock and clinical decompensation, after discussion with his , decision was made to intubate the patient (see separate procedure note for details). After intubating the patient, I placed femoral arterial and central lines. He was then transferred to the CVICU where we placed PA catheter. The patient was given one attempt at forced diuresis with Bumex 4mg iv, diamox 500mg iv, diuril 500mg iv which did not produce any significant urine. Nephrology was emergently consulted and I placed emergent dialysis catheter. Starting PA numbers: RAP 17, PAP 38/23 (30), PCWP 23. CI 2.2, svo2 65% which has improved from prior 40%. Patient after being intubated was also severely hypoxemic with spo2 85% on 100% fio2. CXR demonstrates severe bilateral airspace disease consistent with severe pulmonary edema. I again discussed his care with Dr. Browne and we both agree that for his afib and rate control, digoxin (carefully dosed given renal dysfunction) would be the most appropriate therapy. We started with 0.5mg iv x 1 with a plan for a total of up to 1.25mg iv dosed in small doses as a load, and no maintenance therapy, with serial dig levels. 01/21: Patient remains on multiple pressors this a.m..PCWP 26, CI 4.2, PAP 44/ 26. Digoxin level I.5. Plans for dialysis today. Continued monitoring of elevated LFTs secondary to shock liver. 01/22: Afebrile. Overnight the patient developed A. fib RVR, heart rate 180s , required cardioversion 3 attempts, and was placed on amiodarone infusion. Amiodarone has been discontinued in the setting of elevated LFTs , though they are decreasing. The patient is noted to be thrombocytopenic with a platelet count today of 85, which is half of initial platelet count 3 days ago. This is most likely secondary to concomitant issues of shock liver and intrinsic hepatic disease of which the patient was being followed previously for suspected ZHANG. The patient was placed on a heparin infusion for A. fib .A Heparin platelet antibody test has been obtained this a.m.. The patient was unable to have MRI obtained yesterday secondary to hemodynamic instability. Vasopressors have been decreased over the last 24 hours. Plan for MRI this a.m. to rule out myocarditis. Blood and sputum cultures obtained this a.m. to rule out infectious process. Patient was noted to have possible UTI presumed by urine analysis, the patient has been prophylactically placed on Zosyn for empiric coverage. The patient underwent hemodialysis yesterday with 4 L removed. Objective Vital Signs Date Time Temp Pulse Resp B/P (MAP) Pulse Ox O2 Delivery O2 Flow Rate FiO2 01/22/17 07:05 119 113/50 01/22/17 04:26 95 70 01/22/17 04:00 98.5 25 01/22/17 04:00 Mechanical Ventilator 01/20/17 09:00 6.00 Intake and Output 01/22/17 01/22/17 01/23/17 08:00 16:00 00:00 Intake Total 803 ml Output Total 260 ml Balance 543 ml Result Diagram: 01/22/17 0515 01/22/17 0515 Other Results Laboratory Tests Test 01/22/17 05:30 Blood Gas Puncture Site ART LINE Blood Gas Patient Temperature 98.6 Blood Gas HCO3 23 mmol/L (22-26) Blood Gas Base Excess -0.9 mmol/L (-2-2) Blood Gas Oxygen Saturation 93 % (90-100) Arterial Blood pH 7.40 (7.380-7.420) Arterial Blood Partial Pressure CO2 39 mmHg (38-42) Arterial Blood Partial Pressure O2 83 mmHg (61-120) Arterial Blood Oxygen Content 15.5 Vol % (12.0-20.0) Arterial Blood Carboxyhemoglobin 1.3 % (0-4) Arterial Blood Methemoglobin 1.0 % (0-2) Blood Gas Hemoglobin 11.8 G/DL (12.0-16.0) Oxygen Delivery Device VENTILATOR Blood Gas Ventilator Setting AC20/640/10PEEP Blood Gas Inspired Oxygen 70 % Imaging Last Impressions Chest X-Ray 01/21/17 0600 Signed Impressions: Service Date/Time: Saturday, January 21, 2017 03:59 - CONCLUSION: Tubes and catheters are in good position. Small lung volumes bilaterally Rob Gerber MD CT Angiography 01/19/17 0000 Signed Impressions: Service Date/Time: December 06:36 - CONCLUSION: 1. Negative for pulmonary embolism. Small effusions with ground glass opacity characteristic of mild edema. There is also peribronchial thickening. Arsenio Amaya MD Last 24 hours Impressions Chest X-Ray 01/20/17 0000 Signed Impressions: Service Date/Time: Friday, January 20, 2017 00:29 - CONCLUSION: Stable examination. Rob Gerber MD Objective Remarks GENERAL: Critically ill-appearing , morbidly obese gentleman, intubated and sedated SKIN: Warm and dry. HEAD: Normocephalic. EYES: No scleral icterus. No injection or drainage. NECK: Supple, trachea midline. severe JVD above mandible. CARDIOVASCULAR: tachycardic rate, irregularly irregular rhythm. Telemetry- atrial fibrillation rate in 120s. RESPIRATORY: Mechanical ventilation, distant bilateral breath sounds GASTROINTESTINAL: Abdomen obese, soft, non-tender, nondistended. Hypoactive bowel sounds. Minimal NG tube secretions low intermittent wall suction MUSCULOSKELETAL: 2+ peripheral edema in extremities. mo NEURO EXAM: RASS-3. Versed and fentanyl for ventilator synchrony Procedures 01/22-obtain cardiac MRI A/P Assessment and Plan Assessment: 51yM with past history of questionable ZHANG, Cirrhosis and obstructive sleep apnea now with what appears to be New-onset Acute Severe Dilated Cardiomyopathy in decompensating cardiogenic shock and multi-organ failure, shock liver, acute kidney injury requiring emergent renal replacement therapy, volume overload, pulmonary edema, acute hypoxic respiratory failure, and lactic acidosis. Condition Critical. Plan by systems: Neurologic: Agitated delirium secondary to hypoxia secondary to low cardiac output - Versed and fentanyl infusion for ventilator synchrony with a goal RASS -2. - Neuro checks per ICU protocol Respiratory: Acute hypoxic respiratory failure Pulmonary edema Obstructive sleep apnea - intubated for worsening hypoxemia-01/20 - vent bundle, HOB at 30 degrees, duo nebs every 6 hours scheduled every 2 hours when necessary - no SBT at this time secondary to hemodynamic instability -Mechanical vent settings - AC 20/640/10/0.70, ABG this a.m. 7.40/39/83/23/-0.9 , will decrease rate to 18 -01/22 CXR -diffuse pulmonary vascular congestion but better aeration today Cardiovascular: Cardiogenic shock New acute severe dilated cardiomyopathy- EF 15% Elevated Troponin secondary to demand ischemia/Type II NSTEMI Acute Systolic Congestive Heart Failure Exacerbation New-onset Atrial Fibrillation with Rapid Ventricular Response - cardiology following: Dr. Browne - 01/20 2d echo -ejection fraction less than 20% - PAP 45/20 - trend thermodilution cardiac outputs - no evidence of active ACS. -01/22- cardioversion x3 attempts. (INR 1.7), Initiate Heparin infusion - digoxin 0.5mg iv x 1 (01/20) trend dig levels. 1.5 daily - D/C amiodarone at this time , in the setting of persistent LFT elevation - Downtrended Troponins 0.27-->0.18 - trend lactates via IL-GEM, trend ABGs. Lactic acidosis resolved -lactate 2.0 - will need LHC/RHC - Dobutamine 2.5 mcgs Milrinone currently at 0.2 mcg/kg/min, Levophed 12 mcgs. Heparin infusion initiated - 01/22 MRI- F/U results concern for myocarditis Renal: Severe acute kidney injury requiring emergent Renal replacement therapy Acute intravascular volume overload Anuria -- Strict I/Os - Nephrology following, Dr. Nicole - Hemodialysis per nephrology - trend renal function -01/21 HD- 4L removed FEN/GI: Acute intravascular volume overload Shock liver Possible history of Zhang cirrhosis Morbid obesity Lactic acidosis-resolved Anion gap metabolic acidosis-resolved -Remain NPO while in shock- Continue OGT to LIWS - 01/22- F/U KUB - trend LFTs - AST 7179-->2179, ALT 5157-->3503, Tbili increasing 1.4->3.3 - F/U hepatitis panel,HIV, LUCY - IHD as above. - Replete electrolytes per ICU protocol Heme/ID: Coagulopathy secondary to acute liver failure Elevated ferritin - trend daily coags - Hematology consulted- negative for Hemachromatosis - Monitor CBC - infectious etiology unknown. post-viral cardiomyopathy could be a cause of new -onset NICM, but no evidence of active infection. -Urinalysis suggestive of possible UTI, follow-up results-Zosyn initiated -Obtain blood and sputum [id number] results. Concern for possible viral etiology secondary to previous history obtained preadmission to hospital -F/U HIT panel- thrombocytopenia most likely secondary to hepatic injury Endocrine: Hyperglycemia of critical illness -- SSI, medium scale, every 4 -- TSH, free T4 WNL Prophylaxis: GI Prophylaxis - Pepcid 10mg q12h (renally adjusted) DVT Prophylaxis -- SCDs -- Heparin infusion (Afib) Lines: - 01/20 left femoral arterial line - 01/20 left femoral triple lumen catheter - 01/20 right IJ 8.5 Fr Cordis introducer sheath - 01/20 right IJ 6 Fr PA Catheter - 01/20 left IJ 14 Fr 20cm VasCath - 01/20 Raymundo Dispo: -- Condition Critical CODE STATUS: Of note, the patient and his both confirmed to me that the patient has wanted to be DNR for many years. In discussions, he had a family member who sustained an anoxic brain injury after CPR and was in a persistent vegetative state, and this is unacceptable to the patient. The patient has had long-standing known and expressed wishes that he did not want CPR or life sustaining measures. After discussion particularly with the , I made it clear that we have not completed our workup of this new cardiomyopathy, and we are unsure if this is a reversible process. The patient was in favor of intubation and so we proceeded with that. I expressed my concern that in his acute and critical state, ventricular dysrhythmias are common, and successful cardioversion or defibrillation out of these could still be lifesaving with minimal risk of severe anoxic brain injury. After this discussion, we agreed that the patient would accept electrical cardioversion or defibrillation, particularly in the event that he sustained a non-perfusing or unstable dysrhythmias, but congruent with his wishes, we would not pursue CPR or full ACLS as this would not be keeping with his wishes. The patient is an alternate code: Intubation and electrical shocks. Discussed with TUBE MOLDER FIBERGLASS at bedside. This patient remains critically ill with one or more organ systems which are or may become a threat to life. I have spent in excess of 35 minutes discontinuously in the care and management of this patient. This time is exclusive of procedures, and includes, but is not limited to, evaluation of the patient, review of the medical record, discussions with family, consultants, nursing staff, or respiratory therapy, and documentation in the medical record. Off amiodarone drip patient heart rate and rhythm returns to uncontrolled atrial fibrillation with RVR and severe hypotension requiring cardioversion again. Amiodarone causes a liver toxicity in a eyeglass assembler use rather than short- term. It is not contraindicated in patients with elevated LFTs however dose adjustment is recommended - please see below. Due to hypotension and requirements of Levophed (beta-1 beta 2 agonists), the beta gayle is not an option for rate control at this situation. Also due to severe hypertension and ejection fraction of 15% Cardizem is not the drug of choice either. Digoxin is not the safest drug in the setting of renal failure and hemodialysis. Amiodarone seems to be the optimal drug at the current situation. Dosing: Hepatic Impairment Dosage adjustment is probably necessary in substantial hepatic impairment. No specific guidelines available. If hepatic enzymes exceed 3 times normal or double in a patient with an elevated baseline, consider decreasing the dose or discontinuing amiodarone. Physician Sherry Salazar MD Jan 22, 2017 08:56 Arvind Thomas MD Jan 22, 2017 19:01
[2017-01-22] MEDS: buPROPion HCL 150 MG SUSTAINED RELEASE TAB PO SCH (09:36)
[2017-01-22] MEDS: SODIUM CHLORIDE 0.9% FLUSH 10 ML FLUSH IV FLUSH SCH ×2 (09:36→20:47)
[2017-01-22] MEDS: ASPIRIN EC 81 MG TABEC PO SCH (09:36)
[2017-01-22] MEDS: FAMOTIDINE 20 MG/2 ML VIAL IV PUSH SCH ×2 (09:36→20:46)
[2017-01-22] MEDS: PIPERACIL-TAZO 3.375 GM PREMIX 50 ML IV SCH ×3 (09:36→22:22)
[2017-01-22] MEDS: NOREPINEPHRINE IV PRN ×2 (09:40)
[2017-01-22] MEDS: WATER IV PRN ×2 (09:40)
[2017-01-22] MEDS: DEXTROSE 5% IV PRN ×2 (09:40)
[2017-01-22 12:24] LABS: APTT (PATIENT) 31.7 SEC (24.3-30.1)
--- NOTE | 2017-01-22 13:38 | PD.CARD.PN ---
Subjective Subjective Remarks Pt initially consulted to Dr. Browne Overt the weekend events noted Overnight the patient developed A. fib RVR, heart rate 180s ,required cardioversion 3 attempts, and was placed on amiodarone infusion. Amiodarone has been discontinued in the setting of elevated LFTs Vasopressors have been decreased over the last 24 hours. Objective Medications Current Medications Medications (Trade) Dose Ordered Sig/Jennifer Route Start Time Stop Time Status Last Admin (NS Flush) 2 ml UNSCH PRN IV FLUSH 01/19/17 06:45 (NS Flush) 2 ml BID IV FLUSH 01/19/17 09:00 01/22/17 09:36 (Narcan Inj) 0.4 mg UNSCH PRN IV 01/19/17 06:45 (Wellbutrin Sr) 150 mg DAILY PO 01/20/17 09:00 01/22/17 09:36 (Lexapro) 20 mg HS PO 01/19/17 21:00 01/19/17 21:25 (Ecotrin Ec) 81 mg DAILY PO 01/20/17 09:00 01/22/17 09:36 Miscellaneous Information Patient in critical care unit? Ass... [id number] .XX 01/20/17 01:15 (Chlorhexidine 2% Cloth) 3 pack DAILY@04 TOPICAL 01/20/17 04:00 01/24/17 04:01 01/20/17 04:00 (Chlorhexidine 2% Cloth) 3 pack UNSCH PRN TOPICAL 01/20/17 01:15 01/25/17 01:05 Phenylephrine HCl 40 mg/Dextrose 500 ml @ 30 mls/hr [id number] PRN IV 01/20/17 03:49 01/20/17 10:14 (Glucagon Inj) 1 mg UNSCH PRN OTHER 01/20/17 05:30 Midazolam HCl 100 ml @ 2 mls/hr Q24H PRN IV 01/20/17 13:18 01/21/17 22:36 Norepinephrine Bitartrate 16 mg/ Dextrose 266 ml @ 1.99 mls/hr Q24H PRN IV 01/20/17 13:21 01/22/17 09:40 (Brethine Inj) 1 mg UNSCH PRN SQ 01/20/17 13:30 Nitroglycerin/ Dextrose 250 ml @ 1.5 mls/hr Q24H PRN IV 01/20/17 15:55 01/20/17 16:53 Sodium Chloride 1,000 ml @ 0 mls/hr Q0M PRN OTHER 01/20/17 17:22 01/21/17 12:49 Sodium Chloride 1,000 ml @ 200 mls/hr Q5H PRN IV 01/20/17 17:22 Sodium Chloride 1,000 ml @ 0 mls/hr Q0M PRN OTHER 01/20/17 17:22 (Mannitol Inj) 12.5 gm UNSCH PRN IV 01/20/17 17:30 (Albumin 25% Inj) 25 gm UNSCH PRN IV 01/20/17 17:30 01/21/17 13:00 (NS Flush) 5 ml UNSCH PRN IV FLUSH 01/20/17 17:30 (Heparin Inj) UNSCH PRN .XX 01/20/17 17:30 01/21/17 12:49 (Gentamicin (Dialysis) Inj) 20 mg UNSCH PRN IV 01/20/17 17:30 01/21/17 12:49 (Zofran Inj) 4 mg UNSCH PRN IV 01/20/17 17:30 (Tylenol) 650 mg UNSCH PRN PO 01/20/17 17:30 (Catapres) 0.1 mg UNSCH PRN PO 01/20/17 17:30 (Gelfoam 12 Mm/7 Mm Top) 1 foam UNSCH PRN TOP 01/20/17 17:30 (D50w (Vial) Inj) 25 ml UNSCH PRN IV PUSH 01/20/17 19:45 (NovoLIN R SUPPLEMENTAL SCALE) 1 Q4HR SQ 01/20/17 20:00 (Peridex 0.12% Liq) 15 ml BID@08,20 MT 01/20/17 20:00 01/22/17 08:33 (Duoneb Neb) 1 ampule Q6HR NEB INH 01/20/17 22:00 01/22/17 08:11 (Duoneb Neb) 1 ampule Q2HR NEB PRN INH 01/20/17 19:45 (Pepcid Inj) 10 mg Q12H IV PUSH 01/20/17 21:00 01/22/17 09:36 Dobutamine HCl/ Dextrose 250 ml @ 22.2 mls/hr [id number] IV 8/26/17 00:15 01/22/17 07:05 Calcium Chloride 1 gm/Sodium Chloride 110 ml @ 110 mls/hr UNSCH PRN IV 01/21/17 00:30 01/22/17 12:23 Milrinone Lactate 20 mg/Sodium Chloride 100 ml @ 13.32 mls/ hr Q7H31M PRN IV 01/21/17 05:30 01/22/17 08:33 Fentanyl Citrate 250 ml @ 5 mls/hr Q24H PRN IV 01/21/17 10:16 01/22/17 05:27 Heparin Sodium/ Dextrose 250 ml @ 17.088 mls/ hr [id number] PRN IV 01/22/17 07:39 Future Hold 01/22/17 08:39 Piperacillin Sod/ Tazobactam Sod 50 ml @ 100 mls/hr Q6H IV 01/22/17 09:00 01/22/17 09:36 Vital Signs / I&O Vital Signs Date Time Temp Pulse Resp B/P (MAP) Pulse Ox O2 Delivery O2 Flow Rate FiO2 01/22/17 11:00 70 01/22/17 11:00 94 Mechanical Ventilator 70 01/22/17 11:00 166 102/50 (67) 90/51 (64) 01/22/17 11:00 119 01/22/17 11:00 98.1 118 22 102/50 (67) 94 90/51 (64) 01/22/17 10:50 94 70 01/22/17 08:33 161 107/59 01/22/17 08:12 93 70 01/22/17 07:05 119 113/50 01/22/17 07:00 137 01/22/17 07:00 98.6 137 21 113/50 (71) 93 107/59 (75) 01/22/17 07:00 95 Mechanical Ventilator 70 01/22/17 07:00 166 113/50 (71) 107/59 (75) 01/22/17 07:00 70 01/22/17 05:50 121 112/52 01/22/17 05:28 113 119/57 01/22/17 04:26 95 70 01/22/17 04:00 98.5 111 25 123/55 (77) 95 115/65 (82) 01/22/17 04:00 111 123/55 (77) 01/22/17 04:00 112 01/22/17 04:00 70 01/22/17 04:00 95 Mechanical Ventilator 70 01/22/17 02:26 97 70 01/22/17 01:00 70 01/22/17 01:00 95 Mechanical Ventilator 70 01/22/17 00:00 65 01/22/17 00:00 97.7 146 20 87/55 (66) 94 01/22/17 00:00 150 01/22/17 00:00 94 Mechanical Ventilator 65 01/22/17 00:00 146 87/55 (66) 01/21/17 22:31 93 65 01/21/17 20:30 93 65 01/21/17 20:18 156 103/65 01/21/17 20:00 98.3 156 20 103/65 (78) 96 85/72 (76) 01/21/17 20:00 65 01/21/17 20:00 156 103/65 (78) 85/72 (76) 01/21/17 20:00 96 Mechanical Ventilator 65 01/21/17 20:00 160 01/21/17 20:00 156 103/65 01/21/17 18:25 146 119/62 01/21/17 16:50 94 65 01/21/17 15:00 95 Mechanical Ventilator 65 01/21/17 15:00 75 01/21/17 15:00 149 01/21/17 15:00 166 104/57 (73) 103/64 (77) 01/21/17 15:00 99.4 168 25 104/57 (73) 98 103/64 (77) 01/21/17 13:52 99 65 I/O 01/21/17 01/21/17 01/21/17 01/22/17 01/22/17 01/22/17 06:59 14:59 22:59 06:59 14:59 22:59 Intake Total 1296 ml 479 ml 1558 ml 553 ml 696 ml Output Total 293 ml 4000 ml 356 ml 260 ml Balance 1003 ml -3521 ml 1202 ml 293 ml 696 ml Intake Oral 0 ml 0 ml 0 ml IV Total 1296 ml 479 ml 1558 ml 463 ml 696 ml Other 90 ml Output Urine Total 93 ml 106 ml 60 ml Gastric Drainage Total 200 ml 250 ml 200 ml Hemodialysis 4000 ml # Bowel Movements 0 0 0 Physical Exam GENERAL: Well-nourished, well-developed patient. SKIN: Warm and dry. HEAD: Normocephalic. EYES: No scleral icterus. No injection or drainage. NECK: Supple, trachea midline. No JVD or lymphadenopathy. CARDIOVASCULAR: tachycardic RESPIRATORY: Vented GASTROINTESTINAL: Abdomen soft, non-tender, nondistended. EXTREMITIES: No cyanosis, or +edema. Laboratory Laboratory Tests Test 01/21/17 18:50 01/22/17 05:15 01/22/17 05:30 01/22/17 08:21 Lactic Acid Level 2.0 mmol/L Troponin I 0.18 NG/ML White Blood Count 11.8 TH/MM3 12.5 TH/MM3 Red Blood Count 4.57 MIL/MM3 4.63 MIL/MM3 Hemoglobin 12.0 GM/DL 11.7 GM/DL Hematocrit 37.1 % 37.5 % Mean Corpuscular Volume 81.3 FL 81.0 FL Mean Corpuscular Hemoglobin 26.2 PG 25.3 PG Mean Corpuscular Hemoglobin Concent 32.2 % 31.2 % Red Cell Distribution Width 15.6 % 15.8 % Platelet Count 85 TH/MM3 88 TH/MM3 Mean Platelet Volume 8.8 FL 8.4 FL Neutrophils (%) (Auto) 88.4 % Lymphocytes (%) (Auto) 6.9 % Monocytes (%) (Auto) 3.5 % Eosinophils (%) (Auto) 1.0 % Basophils (%) (Auto) 0.2 % Neutrophils # (Auto) 10.5 TH/MM3 Lymphocytes # (Auto) 0.8 TH/MM3 Monocytes # (Auto) 0.4 TH/MM3 Eosinophils # (Auto) 0.1 TH/MM3 Basophils # (Auto) 0.0 TH/MM3 CBC Comment DIFF FINAL Differential Comment Prothrombin Time 17.8 SEC 19.0 SEC Prothromb Time International Ratio 1.6 RATIO 1.7 RATIO Activated Partial Thromboplast Time 28.1 SEC 26.8 SEC Blood Urea Nitrogen 51 MG/DL Creatinine 5.65 MG/DL Random Glucose 95 MG/DL Total Protein 5.4 GM/DL Albumin 3.4 GM/DL Calcium Level 8.8 MG/DL Phosphorus Level 4.3 MG/DL Magnesium Level 2.1 MG/DL Alkaline Phosphatase 68 U/L Aspartate Amino Transf (AST/SGOT) 2179 U/L Alanine Aminotransferase (ALT/SGPT) 3503 U/L Total Bilirubin 3.3 MG/DL Sodium Level 141 MEQ/L Potassium Level 4.0 MEQ/L Chloride Level 103 MEQ/L Carbon Dioxide Level 28.0 MEQ/L Anion Gap 10 MEQ/L Estimat Glomerular Filtration Rate 11 ML/MIN Digoxin Level 1.5 NG/ML Blood Gas Puncture Site ART LINE Blood Gas Patient Temperature 98.6 Blood Gas HCO3 23 mmol/L Blood Gas Base Excess -0.9 mmol/L Blood Gas Oxygen Saturation 93 % Arterial Blood pH 7.40 Arterial Blood Partial Pressure CO2 39 mmHg Arterial Blood Partial Pressure O2 83 mmHg Arterial Blood Oxygen Content 15.5 Vol % Arterial Blood Carboxyhemoglobin 1.3 % Arterial Blood Methemoglobin 1.0 % Blood Gas Hemoglobin 11.8 G/DL Oxygen Delivery Device VENTILATOR Blood Gas Ventilator Setting AC20/640/[id number] Blood Gas Inspired Oxygen 70 % Test 01/22/17 11:00 Activated Partial Thromboplast Time 31.7 SEC Lactic Acid Level 1.8 mmol/L Imaging Last Impressions Chest X-Ray 01/22/17 0600 Signed Impressions: Service Date/Time: Sunday, January 22, 2017 04:14 - CONCLUSION: Tubes and catheters as described above. Diffuse pulmonary vascular congestion with overall better aerated chest on the previous day Rob Gerber MD Abdomen X-Ray 01/22/17 0400 Signed Impressions: Service Date/Time: Sunday, January 22, 2017 04:16 - CONCLUSION: Normal examination. Rob Gerber MD CT Angiography 01/19/17 0000 Signed Impressions: Service Date/Time: December 06:36 - CONCLUSION: 1. Negative for pulmonary embolism. Small effusions with ground glass opacity characteristic of mild edema. There is also peribronchial thickening. Arsenio Amaya MD Assessment and Plan Problem List: (1) Elevated troponin ICD Codes: R74.8 - Abnormal levels of other serum enzymes Status: Acute Plan: 51-year-old male critically ill who presented for evaluation of ongoing and worsening symptoms of shortness of breath 1 week duration associated with chest pressure. Found in Afib with RVR. Patient had minimally elevated cardiac enzyme and a mildly elevated BNP of 233. He was started on Cardizem drip for rate control of atrial fibrillation and was admitted to [facility] for ischemic work up. He was seen by Cardiology Dr. Browne in the ED. inventory control coordinator on January 20 rapid response was called due to patient's hypotension and hypoxemia he was intubated and transfer to the ICU. Now in multi-organ failure, respiratory failure, cardiogenic shock, renal failure s/p HD, GI bleeding. On Levophed, Dobutamine and Milrinone. He is alternative code (no medications only shock and intubation per Dr. Mehta). Recommendations: - Continue supportive care with Dobutamine, Milrinone and Levophed - Cont Heparin gtt - ASA, statins - BB and ACEi as BP tolerates - Dr. Browne to f/u in AM Case discussed with nursing staff and with (2) Atrial fibrillation with RVR ICD Codes: I48.91 - Unspecified atrial fibrillation Status: Acute (3) Essential hypertension ICD Codes: I10 - Essential (primary) hypertension (4) Acute renal failure ICD Codes: N17.9 - Acute kidney failure, unspecified (5) CHF (congestive heart failure) ICD Codes: I50.9 - Heart failure, unspecified (6) Respiratory failure ICD Codes: J96.90 - Respiratory failure, unspecified, unspecified whether with hypoxia or hypercapnia Ryan Grimaldo MD Jan 22, 2017 13:38
[2017-01-22] MEDS: MIDAZOLAM 100 MG/100 ML INJ 100 ML IV PRN (14:33)
--- NOTE | 2017-01-22 16:18 | HHI.NPPN ---
Subjective History of Present Illness 51 year old male with CHF,ARF, morbid obesity, A fib EF 20%, Respiratory failure on Vent Objective Data Data 01/22/17 01/23/17 19:00 07:00 Intake Total 836 ml Balance 836 ml IV Total 836 ml Vital Signs Date Time Temp Pulse Resp B/P (MAP) Pulse Ox O2 Delivery O2 Flow Rate FiO2 01/22/17 15:00 70 01/22/17 15:00 94 Mechanical Ventilator 70 01/22/17 15:00 134 01/22/17 15:00 100.2 118 21 126/49 (74) 96 99/59 (72) 01/22/17 15:00 166 126/49 (74) 99/57 (71) 01/22/17 11:00 70 01/22/17 11:00 94 Mechanical Ventilator 70 01/22/17 11:00 166 102/50 (67) 90/51 (64) 01/22/17 11:00 119 01/22/17 11:00 98.1 118 22 102/50 (67) 94 90/51 (64) 01/22/17 10:50 94 70 01/22/17 08:33 161 107/59 01/22/17 08:12 93 70 01/22/17 07:05 119 113/50 01/22/17 07:00 137 01/22/17 07:00 98.6 137 21 113/50 (71) 93 107/59 (75) 01/22/17 07:00 95 Mechanical Ventilator 70 01/22/17 07:00 166 113/50 (71) 107/59 (75) 01/22/17 07:00 70 01/22/17 05:50 121 112/52 01/22/17 05:28 113 119/57 01/22/17 04:26 95 70 01/22/17 04:00 98.5 111 25 123/55 (77) 95 115/65 (82) 01/22/17 04:00 111 123/55 (77) 01/22/17 04:00 112 01/22/17 04:00 70 01/22/17 04:00 95 Mechanical Ventilator 70 01/22/17 02:26 97 70 01/22/17 01:00 70 01/22/17 01:00 95 Mechanical Ventilator 70 01/22/17 00:00 65 01/22/17 00:00 97.7 146 20 87/55 (66) 94 01/22/17 00:00 150 01/22/17 00:00 94 Mechanical Ventilator 65 01/22/17 00:00 146 87/55 (66) 01/21/17 22:31 93 65 01/21/17 20:30 93 65 01/21/17 20:18 156 103/65 01/21/17 20:00 98.3 156 20 103/65 (78) 96 85/72 (76) 01/21/17 20:00 65 01/21/17 20:00 156 103/65 (78) 85/72 (76) 01/21/17 20:00 96 Mechanical Ventilator 65 01/21/17 20:00 160 01/21/17 20:00 156 103/65 01/21/17 18:25 146 119/62 01/21/17 16:50 94 65 -: 01/22/17 0821 01/22/17 0515 Microbiology 01/22/17 Aerobic Blood Culture, Received Pending 01/22/17 Anaerobic Blood Culture, Received Pending 01/22/17 Aerobic Blood Culture, Received Pending 01/22/17 Anaerobic Blood Culture, Received Pending 01/22/17 Gram Stain, Received Pending 01/22/17 Sputum Culture, Received Pending Physical Exam General Appearance: Well Developed, Obese Neck Neck Exam: Neck Supple Pulmonary Resp Exam: Decreased Bases Cardiology CV Exam: Arrhythmia Gastrointestinal/Abdomen GI Exam: Soft, Positive Bowel Movement, Distended Extremeties Extremities Exam: Trace Edema Assessment/Plan Problem List: (1) Acute renal failure ICD Codes: N17.9 - Acute kidney failure, unspecified Plan: had hemodialysis UF 4 L yesterday discussed with family continue supportive care EF 20% Dr. Nicole to follow on Monday (2) CHF (congestive heart failure) ICD Codes: I50.9 - Heart failure, unspecified Plan: Getting fluid off with HD (3) Respiratory failure ICD Codes: J96.90 - Respiratory failure, unspecified, unspecified whether with hypoxia or hypercapnia (4) Atrial fibrillation with RVR ICD Codes: I48.91 - Unspecified atrial fibrillation Status: Acute Plan: RVR on Milrinone Paul Molina MD Jan 22, 2017 16:18
[2017-01-22 18:48] LABS: HEMATOCRIT 34.8 % (39.0-51.0)
[2017-01-22 18:49] LABS: REVIEW FLAG FINAL
[2017-01-22] MEDS: AMIODARONE INJ 450 MG in DEXTROSE 5% IN WATE(EXCEL) INJ 241 ML IV SCH ×4 (18:57→22:54)
[2017-01-22] MEDS ORDERED: ACETAMINOPHEN 1000 MG/100 ML VIAL IV ONE (19:00)
[2017-01-22] MEDS: PHENYLEPHRINE INJ 40 MG in DEXTROSE 5% IN WATE 500 ML INJ 496 ML IV PRN ×2 (20:38)
[2017-01-22] MEDS ORDERED: VASOPRESSIN 40 U/100 ML D5W Titrate, Post Cardiac Surgery IV PRN ×2 (20:45)
[2017-01-22] MEDS: ESCITALOPRAM OXALATE 20 MG TAB PO SCH (20:47)
[2017-01-23] VITALS (14 sets, daily range): BP systolic 87–157; BP diastolic 49–87; PULSE 116–174; RESP 18–21; TEMP 98.7–100.1; O2SAT 91–98
[2017-01-23] MEDS: DOBUTamine PREMIX DRIP 250 ML IV SCH ×2 (01:50→13:06)
[2017-01-23] MEDS: INSULIN NovoLIN REGULAR SUPPLEMENTAL SCALE SQ SCH ×6 (04:00→20:00)
[2017-01-23] MEDS: CHLORHEXIDINE GLUCONATE 2 % 1 PACK (2 CLOTHS)(taper/protocol) TOPICAL SCH (04:00)
[2017-01-23] MEDS: PHENYLEPHRINE INJ 40 MG in DEXTROSE 5% IN WATE 500 ML INJ 496 ML IV PRN ×2 (04:14)
[2017-01-23] MEDS: PIPERACIL-TAZO 3.375 GM PREMIX 50 ML IV SCH (04:31)
[2017-01-23] MEDS: MILRINONE INJ 20 MG in SODIUM CHLORIDE 0.9% INJ 80 ML IV PRN ×3 (04:32→19:31)
--- NOTE | 2017-01-23 04:58 | RADRPT ---
EXAM DATE/TIME: 01/23/2017 03:47 [place] COMPARISON: CHEST SINGLE AP, January 22, 2017, 4:14. INDICATIONS : Shortness of breath, possible pulmonary disease. MEDICAL HISTORY : Hypertension. A-Fib SURGICAL HISTORY : None. ENCOUNTER: Subsequent ACUITY: 4 - 6 days PAIN SCORE: Non-responsive. LOCATION: Bilateral chest FINDINGS: Portable AP view of the chest demonstrates a normal-sized cardiac silhouette. Endotracheal tube tip m easures 5.4 cm from the an. A right IJ central line distal tip is not well-visualized. Left IJ li ne distal tip is in the SVC near the cavoatrial junction. Nasogastric tube courses beyond the GE junc tion. There is mild hazy air space opacity throughout the right lung and in the left lower lungs. No pleural effusion or pneumothorax is identified. CONCLUSION: Bilateral interstitial and air space opacities similar to yesterday's examination. Deondre Potts MD on January 23, 2017 at 4:56 Board Certified Radiologist. This report was verified electronically.
[2017-01-23 05:17] LABS: APTT (PATIENT) 31.6 SEC (24.3-30.1); INTERNATIONAL NORMALIZED RATIO 1.6 RATIO; PROTHROMBIN TIME - PATIENT 17.8 SEC (9.8-11.6)
[2017-01-23 05:18] LABS: AUTOMATED NEUTROPHIL # 6.8 TH/MM3 (1.8-7.7); BASOPHIL % 0.6 % (0.0-2.0); EOSINOPHIL # 0.2 TH/MM3 (0-0.4); EOSINOPHIL % 2.7 % (0.0-4.0); HEMATOCRIT 34.7 % (39.0-51.0); LYMPH % 9.7 % (9.0-44.0); LYMPHOCYTE # 0.8 TH/MM3 (1.0-4.8); MEAN CORPUSCULAR HEMOGLOBIN 26.4 PG (27.0-34.0); MEAN CORPUSCULAR HGB CONC 32.6 % (32.0-36.0); MONO % 8.4 % (0.0-8.0); NEUT % 78.6 % (16.0-70.0); PLATELET COUNT 85 TH/MM3 (150-450); RED BLOOD COUNT 4.28 MIL/MM3 (4.50-5.90); RED CELL DISTRIBUTION WIDTH 15.7 % (11.6-17.2); WHITE BLOOD COUNT 8.6 TH/MM3 (4.0-11.0)
[2017-01-23] MEDS: RESP: ALBUTEROL 2.5 MG/IPRATROPIUM 0.5 MG NEB (SCH) INH ×5 (05:20→22:00)
[2017-01-23 05:22] LABS: HEMO FLAGS DIFF FINAL
[2017-01-23 05:34] LABS: BLOOD GAS BASE EXCESS -2.9 mmol/L (-2-2); BLOOD GAS CARBOXYHEMOGLOBIN 1.8 % (0-4); BLOOD GAS HCO3 22 mmol/L (22-26); BLOOD GAS METHEMOGLOBIN 1.2 % (0-2); BLOOD GAS O2 HGB SATURATION 95 % (90-100); BLOOD GAS OXYGEN CONTENT 15.3 Vol % (12.0-20.0); BLOOD GAS PCO2 38 mmHg (38-42); BLOOD GAS PO2 99 mmHg (61-120); BLOOD GAS TOTAL HGB 11.4 G/DL (12.0-16.0); TEMP CORR TO 98.6
[2017-01-23 05:35] LABS: CRITICAL VALUE NO; DRAW SITE ART LINE; FIO2 70 %; OXYGEN DEVICE VENTILATOR; STAT NO; VENT SETTINGS AC18/640/8PEEP
[2017-01-23 05:42] LABS: ALKALINE PHOSPHATASE 58 U/L (45-117); ALT (GPT) 2320 U/L (12-78); ANION GAP 11 MEQ/L (5-15); AST (GOT) 899 U/L (15-37); BICARBONATE 24.1 MEQ/L (21.0-32.0); BLOOD UREA NITROGEN 73 MG/DL (7-18); CHLORIDE 101 MEQ/L (98-107); GLOMERULAR FILTRATION RATE 7 ML/MIN (>89); SODIUM (NA) 136 MEQ/L (136-145); TOTAL BILIRUBIN ADULT 5.6 MG/DL (0.2-1.0)
[2017-01-23] MEDS: MIDAZOLAM 100 MG/100 ML INJ 100 ML IV PRN ×2 (05:55→21:25)
[2017-01-23] MEDS: fentaNYL DRIP 250 ML IV PRN ×2 (05:56→21:26)
[2017-01-23] MEDS: CALCIUM CHLORIDE INJ 1 GM in SODIUM CHLORIDE 0.9% INJ 100 ML IV PRN (06:15)
[2017-01-23] MEDS ORDERED: RESP: ALBUTEROL 2.5 MG/3 ML NEB (PRN) NEB (07:15)
--- NOTE | 2017-01-23 07:23 | HHI.CCPN ---
Subjective Remarks/Hospital Course 51-year-old male with a history of hypertension, presents for evaluation of ongoing and worsening symptoms of shortness of breath 1 week duration associated with chest pressure. Patient states, around 3 AM he was having significant difficulty breathing and decided to come to the ED. This has been an ongoing problem for which patient was supposed to get 2-D echo evaluation as an outpatient. While in emergency department, patient was found to be in A. fib. He denies any previous history of atrial fibrillation, this was also asymptomatic without palpitations or chest pain. CTA was negative for PE and chest x-ray did not reveal any pulmonary congestion. Patient had minimally elevated cardiac enzyme and a mildly elevated BNP of 233. He was started on Cardizem drip for rate control of atrial fibrillation and was admitted to CICU. 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 01/20: Seen and examined initially around 09:30am. Patient with severe dyspnea, agitation, anxiety. In talking with the patient and his , he has a history that over the last approximately 1-2 years she's felt progressively short of breath and can no longer do the activities that he used to be able to do. He can only walk approximately 50 feet without getting winded. He denies any chest pain. He does say that he was diagnosed with sleep apnea approximately a year ago was placed on a BiPAP machine and this did in fact help some of his dyspnea, but he still had significant fatigue with walking even short distances. He and his both note that approximately back in August he had a flulike illness with significant muscle aches, malaise, headache. More recently , over the last 1-2 weeks he has had rapidly progressive shortness of breath, dyspnea on exertion, orthopnea, paroxysmal nocturnal dyspnea. This is presented also in the form of worsening anxiety is becoming very anxious about not being able to catch his breath. He presented to the emergency department yesterday with these complaints and was found to be in new onset atrial fibrillation and mildly hypoxemic. He was given 1 dose of diuretic. Overnight he was started on a diltiazem drip and became severely hypotensive with this. 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 He has been followed with quarterly LFTs which have always been in the mid 70s range per her. Otherwise he has not had any significant past medical history. He has a grandfather that of an SC in his 70s, and a grandmother that of a stroke in her 70s, but no other family history of cardiovascular disease. He has never smoked. He is a very rare drinker, and his confirms this that it is rare that he has any alcohol. He denies any illicit drug use. Review systems is negative unless previous stated. On my initial evaluation, the patient is restless, RASS +1, oriented but confused, CAM +. His extremities are almost mottled. He has severely delayed cap refill. His extremities are cool, very poorly perfused appearing. He has grossly elevated JVD above the level of mandible. I performed a bedside critical care ultrasound which demonstrated what appears to be severely reduced global LV function, very dilated IVC, no pericardial effusion. His troponins are only mildly elevated at 0.08 and this does not appear to be acute coronary syndrome. Highest on my differential at this point would be a new acute onset cardiomyopathy, likely nonischemic given his history. I immediately started the patient on dobutamine IV. I also martin a lactate which resulted at 7.4. I martin a ScVO2 which was 40%, suggestive of severe cardiogenic shock. I attempted arterial line placement, but the patient was too confused and the radial artery too poorly perfused for successful cannulation. At this point, the patient also had not made any urine throughout the day and was refusing raymundo catheter placement. Given his worsening shock and clinical decompensation, after discussion with his , decision was made to intubate the patient (see separate procedure note for details). After intubating the patient, I placed femoral arterial and central lines. He was then transferred to the CVICU where we placed PA catheter. The patient was given one attempt at forced diuresis with Bumex 4mg iv, diamox 500mg iv, diuril 500mg iv which did not produce any significant urine. Nephrology was emergently consulted and I placed emergent dialysis catheter. Starting PA numbers: RAP 17, PAP 38/23 (30), PCWP 23. CI 2.2, svo2 65% which has improved from prior 40%. Patient after being intubated was also severely hypoxemic with spo2 85% on 100% fio2. CXR demonstrates severe bilateral airspace disease consistent with severe pulmonary edema. I again discussed his care with Dr. Browne and we both agree that for his afib and rate control, digoxin (carefully dosed given renal dysfunction) would be the most appropriate therapy. We started with 0.5mg iv x 1 with a plan for a total of up to 1.25mg iv dosed in small doses as a load, and no maintenance therapy, with serial dig levels. 01/21: Patient remains on multiple pressors this a.m..PCWP 26, CI 4.2, PAP 44/ 26. Digoxin level I.5. Plans for dialysis today. Continued monitoring of elevated LFTs secondary to shock liver. 01/22: Afebrile. Overnight the patient developed A. fib RVR, heart rate 180s , required cardioversion 3 attempts, and was placed on amiodarone infusion. Amiodarone has been discontinued in the setting of elevated LFTs , though they are decreasing. The patient is noted to be thrombocytopenic with a platelet count today of 85, which is half of initial platelet count 3 days ago. This is most likely secondary to concomitant issues of shock liver and intrinsic hepatic disease of which the patient was being followed previously for suspected ZHANG. The patient was placed on a heparin infusion for A. fib .A Heparin platelet antibody test has been obtained this a.m.. The patient was unable to have MRI obtained yesterday secondary to hemodynamic instability. Vasopressors have been decreased over the last 24 hours. Plan for MRI this a.m. to rule out myocarditis. Blood and sputum cultures obtained this a.m. to rule out infectious process. Patient was noted to have possible UTI presumed by urine analysis, the patient has been prophylactically placed on Zosyn for empiric coverage. The patient underwent hemodialysis yesterday with 4 L removed. Subjective: 01/23: Afebrile. Decreasing vasopressor requirements overnight. Remains in atrial fibrillation with RVR. Amiodarone initiated as other medications including beta agyle, calcium channel blockers and digoxin do not appear to be controlling heart rate with the present time. Objective Vital Signs Date Time Temp Pulse Resp B/P (MAP) Pulse Ox O2 Delivery O2 Flow Rate FiO2 01/23/17 05:09 116 116/69 01/23/17 04:00 98.8 21 96 01/23/17 04:00 70 01/23/17 04:00 Mechanical Ventilator 01/20/17 09:00 6.00 Intake and Output 01/23/17 01/23/17 01/24/17 08:00 16:00 00:00 Intake Total 1120 ml Output Total 430 ml Balance 690 ml Result Diagram: 01/23/17 0445 01/23/17 0445 Other Results Microbiology Date/Time Source Procedure Growth Status 01/22/17 08:21 Blood Peripheral Aerobic Blood Culture Pending Received 01/22/17 08:21 Blood Peripheral Anaerobic Blood Culture Pending Received 01/22/17 08:00 Sputum Expectorated Sputum Gram Stain Pending Received 01/22/17 08:00 Sputum Expectorated Sputum Sputum Culture Pending Received 01/20/17 17:20 Urine Clean Catch Urine Culture - Final NO GROWTH IN 48 HOURS. Complete Imaging Last Impressions Chest X-Ray 01/23/17 0600 Signed Impressions: Service Date/Time: Monday, January 23, 2017 03:47 - CONCLUSION: Bilateral interstitial and air space opacities similar to yesterday's examination. Deondre Potts MD Abdomen X-Ray 01/22/17 0400 Signed Impressions: Service Date/Time: Sunday, January 22, 2017 04:16 - CONCLUSION: Normal examination. Rob Gerber MD CT Angiography 01/19/17 0000 Signed Impressions: Service Date/Time: December 06:36 - CONCLUSION: 1. Negative for pulmonary embolism. Small effusions with ground glass opacity characteristic of mild edema. There is also peribronchial thickening. Arsenio Amaya MD Objective Remarks GENERAL: 51 old male, critically ill currently orotracheally intubated SKIN: Warm and dry. No rash HEAD: Normocephalic. EYES: Pupils are round 2 mm bilaterally and reactive. No scleral icterus. No injection or drainage. NECK: Supple, trachea midline. Right IJ Cordis with Dickens-Adry catheter and left hemodialysis catheter clean dry and intact CARDIOVASCULAR: tachycardic IR. S1, S2. No S4. Without murmurs, clicks, gallops or rubs ABDOMINAL: Abdomen obese, soft, distended.. Tympanic/Hypoactive bowel sounds. Minimal NG tube secretions low intermittent wall suction MUSCULOSKELETAL: 2+ peripheral edema in extremities. Dopplerable pulses. NEURO EXAM: RASS-3. Positive gag. Positive corneal reflex. Minimal withdrawals to noxious stimuli pain. Procedures 01/22-obtain cardiac MRI Urinary Catheter: Yes Assessment to: Continue Raymundo insert reason: Prolonged Immobilization Vascular Central Line Catheter: Yes Assessment to: Continue Date of Insertion: Jan 20, 2017 Line: Central Venous Catheter Side: Left Location: Femoral A/P Assessment and Plan Neuro/Psych: Acute toxic metabolic encephalopathy secondary to hypoxia/acute kidney injury rule out elevated ammonia Depression disorder NOS Anxiety Chronic benzodiazepine use - Versed drip at 6 mg an hour and fentanyl infusion at 100 g an hour for ventilator synchrony - Goal of RA SS -2 - Daily sedation vacation when appropriate - Neuro checks per ICU protocol - Holding alprazolam 1 mg at night for depression/anxiety - Holding escitalopram 20 mg a night with current dysrhythmia, possible platelet dysfunction. Resume as clinically indicated - Holding bupropion 150 mg by mouth daily with dysrhythmias. Resume as clinically indicated Respiratory: Acute hypoxic respiratory failure/multifactorial - intubated 01/20 Pulmonary edema Obstructive sleep apnea History of OHS ACV 18, 650/8/60 Vsync - vent bundle, HOB at 30 degrees - Albuterol/ipratropium aerosols every 6 hours with albuterol aerosols every 2 hours when necessary dyspnea - no SBT at this time secondary to hemodynamic instability -01/22 CXR -stable bilateral pulmonary infiltrates. Pulmonary function test 2015 - normal Cardiovascular: Cardiogenic shock Severe dilated cardiomyopathy- EF 10%. Likely acute Elevated Troponin secondary to demand ischemia/Type II NSTEMI Acute Systolic Congestive Heart Failure Exacerbation New-onset Atrial Fibrillation with Rapid Ventricular Response History of hypertension Moderate TR - cardiology following: Dr. Browne - 01/20 2d echo -ejection fraction 20%. Moderate LV dilatation. Small pericardial effusion. Pulmonary arterial pressure 3-4 mmHg. Moderate TR. - PAP 45/20 -Cardiac index 3.3. SVR 616. CVP 29. -01/22- cardioversion x3 attempts. - digoxin 0.5mg iv x 1 (01/20) trend dig levels. 1.5 yesterday. A.m. pending -Overnight cardiac restarted amiodarone drip at 0.5 mg a minute at this time despite persistent LFT elevation. Discussed with Dr. Browne. Discontinue. Added additional dose of digoxin. Started on esmolol drip. Titrate for heart rate. - Downtrended Troponins 0.27-->0.18 - Milrinone currently at 0.3 mcg/kg/min, vasopressin at 0.04 units/minute and Yung-Synephrine at 100 grams per minute. Norepinephrine drip and dobutamine drips discontinued overnight - 01/23 MRI- F/U results concern for myocarditis -Continue low-dose aspirin 81 mg daily. Will hold if signs of active bleeding persist - Holding losartan 25 mg by mouth daily light of acute kidney injury/ vasopressor requirements Renal: Severe acute kidney injury requiring emergent Renal replacement therapy Acute intravascular volume overload Anuria -- Strict I/Os - Nephrology following, Dr. Nicole - Hemodialysis per nephrology - trend renal function and urine output - Urine eosinophils negative. FEN/GI: Shock liver - elevated transaminases Morbid obesity with BMI greater than 40 Constipation Possible GI bleed - Remains NPO while in shock/possible GI bleed- Continue OGT to LIWS - Dietary consultation - 01/22- F/U KUB - General downward trending LFTs - F/U hepatitis panel,HIV, LUCY -Replace electrolytes as clinically indicated Heme/ID: Elevated PT/PTT secondary to acute liver failure Elevated ferritin Normocytic anemia Thrombocytopenia UTI? - trend daily coags - Hematology consulted- negative for Hemachromatosis - Monitor CBC - infectious etiology unknown. post-viral cardiomyopathy could be a cause of new -onset NICM, but no evidence of active infection. INR currently 1.7. - Currently on piperacillin/tazobactam 2.25 g IV every 8. 0.75 g supplement with hemodialysis. Pertinent cultures 01/22 - blood cultures 2 - pending 01/22 - sputum - pending 01/20 - UA - no growth -F/U HIT panel- thrombocytopenia most likely secondary to hepatic injury Endocrine: Hyperglycemia of critical illness -- SSI, medium scale with Novulog, every 4 hours -- TSH 1.98 on admission - Check hemoglobin A1c Prophylaxis: GI Prophylaxis -Switch to pantoprazole 40 mg IV twice a day in light of possible bleeding DVT Prophylaxis -- SCDs -- Heparin infusion (Afib) held in light of GI bleeding Lines: - 01/20 left femoral arterial line - 01/20 left femoral triple lumen catheter - 01/20 right IJ 8.5 Fr Cordis introducer sheath - 01/20 right IJ 6 Fr PA Catheter - 01/20 left IJ 14 Fr 20cm VasCath - 01/20 [place] Critical care time 35 minutes. D/W . Luba. and daughter. Care plan discussed. All questions answered. Jose Rafael Snyder MD Jan 23, 2017 07:23
[2017-01-23] MEDS ORDERED: GLYCERIN ADULT 2 GM SUPP RECTAL PRN (07:30)
[2017-01-23] MEDS ORDERED: ESMOLOL DRIP INJ PREMIX 250 ML IV PRN (07:42)
--- NOTE | 2017-01-23 07:43 | PD.CARD.PN ---
Subjective Subjective Remarks intubated, mechanically ventilated Objective Vital Signs / I&O Vital Signs Date Time Temp Pulse Resp B/P (MAP) Pulse Ox O2 Delivery O2 Flow Rate FiO2 01/23/17 05:09 116 116/69 01/23/17 05:00 116 116/69 (85) 127/79 (95) 01/23/17 04:32 140 107/53 01/23/17 04:14 164 102/57 01/23/17 04:00 98.8 152 21 102/57 (72) 96 100/70 (80) 01/23/17 04:00 70 01/23/17 04:00 96 Mechanical Ventilator 70 01/23/17 04:00 152 01/23/17 03:32 94 70 01/23/17 01:00 159 102/49 (66) 96/68 (77) 01/23/17 01:00 95 70 01/23/17 01:00 159 96/68 01/23/17 01:00 159 102/49 01/23/17 00:00 70 01/23/17 00:00 95 Mechanical Ventilator 70 01/23/17 00:00 174 01/23/17 00:00 100.1 174 19 107/53 (71) 95 87/66 (73) 01/22/17 23:30 176 92/68 01/22/17 23:00 172 94/69 01/22/17 22:54 177 102/62 01/22/17 22:50 93 70 01/22/17 22:30 178 98/72 01/22/17 22:30 178 98/72 01/22/17 22:30 178 102/55 (71) 98/72 (81) 01/22/17 22:00 180 89/67 01/22/17 22:00 180 89/67 01/22/17 21:30 95 Mechanical Ventilator 70 01/22/17 21:30 70 01/22/17 21:30 167 93/65 01/22/17 21:00 80 01/22/17 21:00 178 84/66 01/22/17 21:00 178 84/66 01/22/17 21:00 97 Mechanical Ventilator 80 01/22/17 20:45 167 87/61 01/22/17 20:38 173 83/56 01/22/17 20:38 173 114/54 01/22/17 20:30 93 70 01/22/17 20:00 173 114/54 (74) 83/56 (65) 01/22/17 20:00 98 Mechanical Ventilator 100 01/22/17 20:00 100.3 173 21 114/54 (74) 98 83/56 (65) 01/22/17 20:00 100 01/22/17 20:00 174 01/22/17 20:00 176 83/55 01/22/17 20:00 176 83/55 01/22/17 19:33 175 77/58 01/22/17 18:57 172 114/54 01/22/17 18:48 172 84/58 01/22/17 16:20 96 70 01/22/17 15:00 70 01/22/17 15:00 94 Mechanical Ventilator 70 01/22/17 15:00 134 01/22/17 15:00 100.2 118 21 126/49 (74) 96 99/59 (72) 01/22/17 15:00 166 126/49 (74) 99/57 (71) 01/22/17 11:00 70 01/22/17 11:00 94 Mechanical Ventilator 70 01/22/17 11:00 166 102/50 (67) 90/51 (64) 01/22/17 11:00 119 01/22/17 11:00 98.1 118 22 102/50 (67) 94 90/51 (64) 01/22/17 10:50 94 70 01/22/17 08:33 161 107/59 01/22/17 08:12 93 70 I/O 01/22/17 01/22/17 01/22/17 01/23/17 01/23/17 01/23/17 07:00 15:00 23:00 07:00 15:00 23:00 Intake Total 803 ml 786 ml 1920 ml 1120 ml 110 ml Output Total 260 ml 375 ml 430 ml Balance 543 ml 786 ml 1545 ml 690 ml 110 ml Intake Oral 0 ml 0 ml 0 ml IV Total 713 ml 786 ml 1920 ml 1000 ml 110 ml Other 90 ml 120 ml Output Urine Total 60 ml 75 ml 130 ml Gastric Drainage Total 200 ml 300 ml 300 ml # Bowel Movements 0 0 0 Physical Exam GENERAL: Well-nourished, well-developed patient in no apparent distress. NECK: No JVD. No carotid bruit. CARDIOVASCULAR: tachycardic IR IR . S1/S2 no murmur, rub, or gallop. RESPIRATORY: No accessory muscle use. rhonchi to auscultation. Breath sounds equal bilaterally. GASTROINTESTINAL: Abdomen soft, non-tender, nondistended. MUSCULOSKELETAL: +2 edema. Laboratory Laboratory Tests Test 01/22/17 08:21 01/22/17 11:00 01/22/17 17:58 01/23/17 04:45 White Blood Count 12.5 TH/MM3 8.6 TH/MM3 Red Blood Count 4.63 MIL/MM3 4.28 MIL/MM3 Hemoglobin 11.7 GM/DL 11.3 GM/DL 11.3 GM/DL Hematocrit 37.5 % 34.8 % 34.7 % Mean Corpuscular Volume 81.0 FL 81.0 FL Mean Corpuscular Hemoglobin 25.3 PG 26.4 PG Mean Corpuscular Hemoglobin Concent 31.2 % 32.6 % Red Cell Distribution Width 15.8 % 15.7 % Platelet Count 88 TH/MM3 85 TH/MM3 Mean Platelet Volume 8.4 FL 8.8 FL Prothrombin Time 19.0 SEC 17.8 SEC Prothromb Time International Ratio 1.7 RATIO 1.6 RATIO Activated Partial Thromboplast Time 26.8 SEC 31.7 SEC 31.6 SEC Lactic Acid Level 1.8 mmol/L 1.5 mmol/L Neutrophils (%) (Auto) 78.6 % Lymphocytes (%) (Auto) 9.7 % Monocytes (%) (Auto) 8.4 % Eosinophils (%) (Auto) 2.7 % Basophils (%) (Auto) 0.6 % Neutrophils # (Auto) 6.8 TH/MM3 Lymphocytes # (Auto) 0.8 TH/MM3 Monocytes # (Auto) 0.7 TH/MM3 Eosinophils # (Auto) 0.2 TH/MM3 Basophils # (Auto) 0.0 TH/MM3 CBC Comment DIFF FINAL Differential Comment Blood Urea Nitrogen 73 MG/DL Creatinine 8.08 MG/DL Random Glucose 115 MG/DL Total Protein 4.6 GM/DL Albumin 2.7 GM/DL Calcium Level 7.9 MG/DL Phosphorus Level 3.9 MG/DL Magnesium Level 2.0 MG/DL Alkaline Phosphatase 58 U/L Aspartate Amino Transf (AST/SGOT) 899 U/L Alanine Aminotransferase (ALT/SGPT) 2320 U/L Total Bilirubin 5.6 MG/DL Sodium Level 136 MEQ/L Potassium Level 4.0 MEQ/L Chloride Level 101 MEQ/L Carbon Dioxide Level 24.1 MEQ/L Anion Gap 11 MEQ/L Estimat Glomerular Filtration Rate 7 ML/MIN Test 01/23/17 05:20 Blood Gas Puncture Site ART LINE Blood Gas Patient Temperature 98.6 Blood Gas HCO3 22 mmol/L Blood Gas Base Excess -2.9 mmol/L Blood Gas Oxygen Saturation 95 % Arterial Blood pH 7.37 Arterial Blood Partial Pressure CO2 38 mmHg Arterial Blood Partial Pressure O2 99 mmHg Arterial Blood Oxygen Content 15.3 Vol % Arterial Blood Carboxyhemoglobin 1.8 % Arterial Blood Methemoglobin 1.2 % Blood Gas Hemoglobin 11.4 G/DL Oxygen Delivery Device VENTILATOR Blood Gas Ventilator Setting [id number]/640/8PEEP Blood Gas Inspired Oxygen 70 % Assessment and Plan Problem List: (1) Elevated troponin ICD Codes: R74.8 - Abnormal levels of other serum enzymes Status: Acute (2) Atrial fibrillation with RVR ICD Codes: I48.91 - Unspecified atrial fibrillation Status: Acute (3) Essential hypertension ICD Codes: I10 - Essential (primary) hypertension (4) Acute renal failure ICD Codes: N17.9 - Acute kidney failure, unspecified (5) CHF (congestive heart failure) ICD Codes: I50.9 - Heart failure, unspecified (6) Respiratory failure ICD Codes: J96.90 - Respiratory failure, unspecified, unspecified whether with hypoxia or hypercapnia Assessment and Plan A-fib RVR - on amiodarone gtt with no effect. ARF on dialysis no digoxin, CCB tried and caused hypotension. He is currently hypotensive and BB is not an option, DCC tried times two unsuccessful. Further recommendation per Mina Pendleton Jan 23, 2017 07:43
[2017-01-23] MEDS ORDERED: DIGOXIN 0.5 MG/2 ML VIAL IV PUSH ONE (08:00)
[2017-01-23] MEDS ORDERED: PHENYLEPHRINE INJ 160 MG in DEXTROSE 5% IN WATE 500 ML INJ 484 ML IV PRN ×2 (08:02)
[2017-01-23] MEDS ORDERED: TERBUTALINE INJ 1 MG/ML AMP SQ PRN (08:15)
[2017-01-23] MEDS: PANTOPRAZOLE SODIUM 40 MG VIAL IV PUSH SCH ×2 (08:36→20:49)
[2017-01-23] MEDS: CHLORHEXIDINE 0.12% (ORAL KIT) 15 ML CUP MT SCH ×2 (08:37→20:49)
[2017-01-23] MEDS: METOCLOPRAMIDE HCL 10 MG/2 ML VIAL IV PUSH SCH ×2 (08:37→15:55)
[2017-01-23] MEDS: SODIUM CHLORIDE 0.9% FLUSH 10 ML FLUSH IV FLUSH SCH ×2 (08:42→20:49)
[2017-01-23] MEDS ORDERED: LACTULOSE SYRUP 20 GM/30 ML CUP PO SCH (09:00)
[2017-01-23] MEDS: AMIODARONE INJ 450 MG in DEXTROSE 5% IN WATE(EXCEL) INJ 241 ML IV SCH ×6 (09:59→19:30)
--- NOTE | 2017-01-23 10:14 | RADRPT ---
EXAM DATE/TIME: 01/23/2017 09:12 [facility] COMPARISON: No previous studies available for comparison. INDICATIONS : Abnormal labs. MEDICAL HISTORY : Hypertension. Gastroesophageal reflux disease. Congestive heart failure. Cardiomyopathy. Sleep apnea. Dyspnea. Acute renal failure. Afib. SURGICAL HISTORY : Appendectomy. Cardiac catheterization. Vasectomy. ENCOUNTER: Initial ACUITY: 1 day PAIN SCORE: Nonresponsive. LOCATION: Abdomen. MEASUREMENTS: LIVER: 19.7 cm length COMMON DUCT: 3 mm RIGHT KIDNEY: 12.4 x 6.2 x 5.7 cm LEFT KIDNEY: 13.8 x 5.3 x 7.2 cm SPLEEN: 11.5 cm length AORTA: 2.6cm maximal FINDINGS: The exam is extremely limited secondary to overlying bowel gas. Ultrasound of the upper abdomen demon strates increased echogenicity of the liver compatible with fatty infiltration or hepatocellular dise ase. The spleen is unremarkable. Ultrasound of the kidneys demonstrate normal size shape and echogeni city. No hydronephrosis or mass lesions are identified. There is thickening of the gallbladder wall w ithout stones or pericholecystic fluid. No ascites is identified. The spleen is normal in size and fr ee of focal defects. CONCLUSION: 1. Limited evaluation secondary to overlying bowel gas 2. Gallbladder wall thickening without stones. Acalculus cholecystitis is not excluded. Radionuclide imaging is recommended for further evaluation if clinically indicated. Sixto López MD on January 23, 2017 at 10:11 Board Certified Radiologist. This report was verified electronically.
[2017-01-23] MEDS: VASOPRESSIN INJ 40 UNITS in DEXTROSE 5% IN WATER 100ML INJ 98 ML IV SCH ×2 (10:17)
[2017-01-23] MEDS: POLYETHYLENE GLYCOL 17 GM PKG NG SCH ×2 (10:17→20:49)
[2017-01-23] MEDS: SENNOSIDES SYRUP 8.8 MG/5 ML CUP NG SCH ×2 (10:18→20:49)
[2017-01-23] MEDS: DOCUSATE SODIUM 100 MG/10 ML UDC NG SCH ×2 (10:18→20:49)
[2017-01-23] MEDS ORDERED: LOSA25TA PO (10:46)
[2017-01-23] MEDS: DEXMEDETOMIDINE INJ 200 MCG in SODIUM CHLORIDE 0.9% INJ 50 ML IV PRN ×3 (11:43→21:36)
[2017-01-23] MEDS ORDERED: PIPERACIL-TAZO 2.25 GM PREMIX 50 ML IV SCH (12:00)
--- NOTE | 2017-01-23 13:43 | PD.CONS ---
History of Present Illness Service Infectious disease Consult Requested By Dr Peter Snyder Reason for Consult Evaluate patient with myocarditis, fever, assist with antibiotics Primary Care Physician Joey Mckoy Jr, MD Diagnoses: History of Present Illness Patient seen and examined. Records reviewed. Patient is a 51-year-old male, presented to the hospital complaining of one week history of worsening shortness of breath. He was also having some chest pressure. Breath was so severe and he presented to the hospital for further evaluation and treatment. Patient apparently has been having problem with shortness of breath, and being evaluated by his primary care physician. On presentation patient was found to be in atrial fibrillation with RVR. His chest x-ray showed cardiomegaly. He had some elevated CPK, and elevated BNP. Echocardiogram showed decreased LV function with an EF of about 20%. Patient developed significant hypotension and hypoxemia, ended up getting intubated and transferred to the ICU. She has developed significant elevation of his LFTs, as well as his renal failure. He has been started on hemodialysis. He remains on the vent, and currently receiving multiple pressors for his hypotension. He is on dobutamine, norepinephrine, Yung-Synephrine, vasopressin, and Milrinone. Patient also with significant tachycardia, and also on Cordarone drip. He is currently sedated on the vent and currently undergoing hemodialysis at this time my exam. His chest x-ray showing bilateral pulmonary infiltrates. His urinalysis on admission showed pyuria, but urine culture is negative. 2 blood cultures were done yesterday and they are negative so far. Sputum Culture is also pending. His WBC is mildly elevated, and it's down to normal. His sedimentation rate is normal, C-reactive protein elevated. Infectious disease consultation has been requested to evaluate the patient with cardiomyopathy, possible myocarditis, and fevers. Review of Systems ROS Limitations: Clinical Condition, Intubated Past Family Social History Allergies: Coded Allergies: No Known Allergies (Unverified , 01/19/17) Past Medical History Anxiety: Yes Cardiomyopathy GERD Hypertension Obstructive Sleep Apnea Obesity Past Surgical History Cardiac Catheterization in 2007 Appendectomy Vasectomy Active Ordered Medications Albumin Albuterol Cordarone Aspirin Clonidine Precedex Dobutamine Colace Esmolol Fentanyl Heparin Insulin Lactulose Mannitol Reglan Versed Milrinone Zofran Protonix Yung-Synephrine Zosyn MiraLAX Senna Vasopressin Norepinephrine Family History Hypertension Social History No smoking No alcohol abuse No illicit drugs Physical Exam Vital Signs Vital Signs Date Time Temp Pulse Resp B/P (MAP) Pulse Ox O2 Delivery O2 Flow Rate FiO2 01/23/17 12:18 137 87/47 01/23/17 11:00 60 01/23/17 11:00 96 Mechanical Ventilator 60 01/23/17 11:00 126 01/23/17 11:00 99.3 126 20 94/58 (70) 97 01/23/17 10:17 127 98/49 01/23/17 10:17 127 98/49 01/23/17 09:13 134 117/63 01/23/17 08:42 138 133/80 01/23/17 08:17 98 60 01/23/17 07:00 96 Mechanical Ventilator 60 01/23/17 07:00 152 01/23/17 07:00 144 110/ (36) 01/23/17 07:00 99.1 144 20 110/53 (72) 97 01/23/17 07:00 60 01/23/17 05:09 116 116/69 01/23/17 05:00 116 116/69 (85) 127/79 (95) 01/23/17 04:32 140 107/53 01/23/17 04:14 164 102/57 01/23/17 04:00 98.8 152 21 102/57 (72) 96 100/70 (80) 01/23/17 04:00 70 01/23/17 04:00 96 Mechanical Ventilator 70 01/23/17 04:00 152 01/23/17 03:32 94 70 01/23/17 01:00 159 102/49 (66) 96/68 (77) 01/23/17 01:00 95 70 01/23/17 01:00 159 96/68 01/23/17 01:00 159 102/49 01/23/17 00:00 70 01/23/17 00:00 95 Mechanical Ventilator 70 01/23/17 00:00 174 01/23/17 00:00 100.1 174 19 107/53 (71) 95 87/66 (73) 01/22/17 23:30 176 92/68 01/22/17 23:00 172 94/69 01/22/17 22:54 177 102/62 01/22/17 22:50 93 70 01/22/17 22:30 178 98/72 01/22/17 22:30 178 98/72 01/22/17 22:30 178 102/55 (71) 98/72 (81) 01/22/17 22:00 180 89/67 01/22/17 22:00 180 89/67 01/22/17 21:30 95 Mechanical Ventilator 70 01/22/17 21:30 70 01/22/17 21:30 167 93/65 01/22/17 21:00 80 01/22/17 21:00 178 84/66 01/22/17 21:00 178 84/66 01/22/17 21:00 97 Mechanical Ventilator 80 01/22/17 20:45 167 87/61 01/22/17 20:38 173 83/56 01/22/17 20:38 173 114/54 01/22/17 20:30 93 70 01/22/17 20:00 173 114/54 (74) 83/56 (65) 01/22/17 20:00 98 Mechanical Ventilator 100 01/22/17 20:00 100.3 173 21 114/54 (74) 98 83/56 (65) 01/22/17 20:00 100 01/22/17 20:00 174 01/22/17 20:00 176 83/55 01/22/17 20:00 176 83/55 01/22/17 19:33 175 77/58 01/22/17 18:57 172 114/54 01/22/17 18:48 172 84/58 01/22/17 16:20 96 70 01/22/17 15:00 70 01/22/17 15:00 94 Mechanical Ventilator 70 01/22/17 15:00 134 01/22/17 15:00 100.2 118 21 126/49 (74) 96 99/59 (72) 01/22/17 15:00 166 126/49 (74) 99/57 (71) Physical Exam GENERAL: Patient is an obese, well-developed male, sedated on the vent, not in respiratory distress. SKIN: Cool and dry, not mottled. No generalized rash, no ecchymoses and no evidence of embolic lesions. HEAD: Atraumatic. Normocephalic. No temporal wasting, or tenderness. EYES: [place] conjunctiva. No petechia or hemorrhage. Pupils equal, pinpoint. Mild scleral icterus. No injection or drainage. EARS, NOSE AND THROAT: Nose without bleeding or purulent nasal discharge. He is orally intubated, has some dry oral mucosa. NECK: Trachea midline. Supple and not tender, no meningeal signs. Multiple lines in place, sites ok CARDIOVASCULAR: Tachycardic, no rub, no murmurs. RESPIRATORY: Clear to auscultation. Breath sounds equal bilaterally. No rales , wheezing or rhonchi ABDOMEN: Soft, nondistended, bowel sounds present and normoactive. No guarding. He did some grimacing during RUQ palpation. EXTREMITIES: No clubbing, cyanosis, or edema. No joint effusion, has good ROM. Cool feet, not mottled NEUROLOGICAL: Sedated PSYCHIATRIC: Unable to assess LINE: No evidence of infection - has 2 neck lines, and L groin line : Kim in place, urine dark Laboratory Laboratory Tests Test 01/22/17 17:58 01/23/17 04:45 01/23/17 05:20 01/23/17 11:20 Hemoglobin 11.3 11.3 Hematocrit 34.8 34.7 White Blood Count 8.6 Red Blood Count 4.28 Mean Corpuscular Volume 81.0 Mean Corpuscular Hemoglobin 26.4 Mean Corpuscular Hemoglobin Concent 32.6 Red Cell Distribution Width 15.7 Platelet Count 85 Mean Platelet Volume 8.8 Neutrophils (%) (Auto) 78.6 Lymphocytes (%) (Auto) 9.7 Monocytes (%) (Auto) 8.4 Eosinophils (%) (Auto) 2.7 Basophils (%) (Auto) 0.6 Neutrophils # (Auto) 6.8 Lymphocytes # (Auto) 0.8 Monocytes # (Auto) 0.7 Eosinophils # (Auto) 0.2 Basophils # (Auto) 0.0 CBC Comment DIFF FINAL Differential Comment Prothrombin Time 17.8 Prothromb Time International Ratio 1.6 Activated Partial Thromboplast Time 31.6 Blood Urea Nitrogen 73 Creatinine 8.08 Random Glucose 115 Total Protein 4.6 Albumin 2.7 Calcium Level 7.9 Phosphorus Level 3.9 Magnesium Level 2.0 Alkaline Phosphatase 58 Aspartate Amino Transf (AST/SGOT) 899 Alanine Aminotransferase (ALT/SGPT) 2320 Total Bilirubin 5.6 Sodium Level 136 Potassium Level 4.0 Chloride Level 101 Carbon Dioxide Level 24.1 Anion Gap 11 Estimat Glomerular Filtration Rate 7 Lactic Acid Level 1.5 Blood Gas Puncture Site ART LINE Blood Gas Patient Temperature 98.6 Blood Gas HCO3 22 Blood Gas Base Excess -2.9 Blood Gas Oxygen Saturation 95 Arterial Blood pH 7.37 Arterial Blood Partial Pressure CO2 38 Arterial Blood Partial Pressure O2 99 Arterial Blood Oxygen Content 15.3 Arterial Blood Carboxyhemoglobin 1.8 Arterial Blood Methemoglobin 1.2 Blood Gas Hemoglobin 11.4 Oxygen Delivery Device VENTILATOR Blood Gas Ventilator Setting AC18/640/8PEEP Blood Gas Inspired Oxygen 70 Ammonia 19 Test 01/23/17 11:25 Erythrocyte Sedimentation Rate 13 C-Reactive Protein 17.60 Date/Time Source Procedure Growth Status 01/22/17 08:21 Blood Peripheral Aerobic Blood Culture - Preliminary NO GROWTH IN 1 DAY Resulted 01/22/17 08:21 Blood Peripheral Anaerobic Blood Culture - Preliminary NO GROWTH IN 1 DAY Resulted 01/22/17 08:00 Sputum Expectorated Sputum Gram Stain - Final Resulted 01/22/17 08:00 Sputum Expectorated Sputum Sputum Culture Pending Resulted 01/20/17 17:20 Urine Clean Catch Urine Culture - Final NO GROWTH IN 48 HOURS. Complete Result Diagram: 01/23/17 0445 01/23/17 0445 Imaging RADIOLOGY STUDIES/FILMS REVIEWED Chest X-Ray 01/23/17 0600 Signed Impressions: Service Date/Time: Monday, January 23, 2017 03:47 - CONCLUSION: Bilateral interstitial and air space opacities similar to yesterday's examination. Deondre Potts MD Abdomen Ultrasound 01/23/17 0000 Signed Impressions: Service Date/Time: Monday, January 23, 2017 09:12 - CONCLUSION: 1. Limited evaluation secondary to overlying bowel gas 2. Gallbladder wall thickening without stones. Acalculus cholecystitis is not excluded. Radionuclide imaging is recommended for further evaluation if clinically indicated. Sixto López MD Abdomen X-Ray 01/22/17 0400 Signed Impressions: Service Date/Time: Sunday, January 22, 2017 04:16 - CONCLUSION: Normal examination. Rob Gerber MD CT Angiography 01/19/17 0000 Signed Impressions: Service Date/Time: December 06:36 - CONCLUSION: 1. Negative for pulmonary embolism. Small effusions with ground glass opacity characteristic of mild edema. There is also peribronchial thickening. Arsenio Amaya MD Assessment and Plan Assessment and Plan IMPRESSION Cardiogenic shock, with severe cardiomyopathy SEpsis, with fevers - potential for infections: on vent, multiple lines - had (+) UA on admission - abnormal GB on US, has elevated LFT MOSF - resp, renal elevated LFT Respiratory failure RECOMMENDATION Follow new C/S Will resend new UA and C/S Eval GB when feasible - currently not stable, on too many pressors Continue Zosyn Give dose of Vanco, and check level Adjust Abx when C/S available Follow temps Monitor progress I will determine course of Rx depending on clnical course and results of work-up I will follow along with you Thank you for this consultation Discussed Condition With D/W Marilee Lackey MD Jan 23, 2017 13:43
[2017-01-23] MEDS: ARTIFICIAL TEARS OPTH SOLN 15 ML BTL EACH EYE SCH ×2 (14:00→20:49)
[2017-01-23] MEDS ORDERED: VANCOMYCIN INJ 1,000 MG in SODIUM CHLOR 0.9% 250 ML INJ 250 ML IV ONE (14:00)
[2017-01-23 14:18] LABS: HEPARIN AB OD 0.396 O.D. (0.000-0.300); HEPARIN INDUCED PLATELET AB Weak Positive (NEGATIVE)
[2017-01-23] MEDS: GENTAMICIN SULFATE (DIALYSIS USE ONLY) 20 MG/2 ML VIAL IV PRN (14:34)
[2017-01-23] MEDS: ALBUMIN HUMAN 25% 25 GM/100 ML BAGP IV PRN (14:35)
[2017-01-23] MEDS: HEPARIN SODIUM - IV 10,000 UNITS/10 ML VIAL PRN (14:35)
[2017-01-23] MEDS: ASPIRIN EC 81 MG TABEC PO SCH (14:37)
[2017-01-23] MEDS: PIPERACIL-TAZO 2.25 GM PREMIX 50 ML IV SCH (17:00)
[2017-01-23 18:26] LABS: BLOOD, URINE MOD (NEG); GLUCOSE,URINE NEG (NEG); HYALINE CAST, URINE 1 /lpf (RARE); KETONE, URINE NEG (NEG); MUCUS URINE FEW /lpf (OCC); NITRITE,URINE NEG (NEG); PH, URINE 6.5 (5.0-8.5); SQUAMOUS EPITHELIAL CELL URINE <1 /hpf (0-5); URINE COLOR YELLOW (YELLW/STRAW)
[2017-01-23] MEDS ORDERED: AMIODARONE INJ 900 MG in D5W 500 ML (EXCEL BAG) 482 ML IV SCH (18:26)
[2017-01-23 18:29] LABS: COMMENT (UR) CATH-CULTURE IND; CULTURE IF INDICATED CATH CULTURE IND
[2017-01-23 19:04] LABS: HEMATOCRIT 35.8 % (39.0-51.0)
[2017-01-23 19:12] LABS: REVIEW FLAG FINAL
--- NOTE | 2017-01-23 21:47 | HHI.NPPN ---
Subjective History of Present Illness 51-year-old male with past medical history of hypertension, anxiety who was admitted with worsening shortness of breath. I was called to see the patient because of decreased urine output and increased creatinine. The patient develop ASHLYN, Hypotension, Resp. failure. He was found to have low EF of 20%. Additional Remarks Patient remain on the vent. and still on the pressors, seen after HD. Objective Data Data 01/23/17 01/24/17 19:00 07:00 Intake Total 2038 ml Output Total 6690 ml Balance -4652 ml IV Total 1878 ml Tube Feeding 160 ml Output Urine Total 90 ml Gastric Drainage Total 100 ml Hemodialysis 6500 ml # Bowel Movements 0 Vital Signs Date Time Temp Pulse Resp B/P (MAP) Pulse Ox O2 Delivery O2 Flow Rate FiO2 01/23/17 19:31 133 154/85 01/23/17 16:52 98 55 01/23/17 15:00 135 01/23/17 15:00 60 01/23/17 15:00 135 101/55 (70) 01/23/17 15:00 99.6 134 18 101/55 (70) 91 01/23/17 15:00 96 Mechanical Ventilator 60 01/23/17 12:18 137 87/47 01/23/17 11:00 60 01/23/17 11:00 96 Mechanical Ventilator 60 01/23/17 11:00 126 01/23/17 11:00 99.3 126 20 94/58 (70) 97 01/23/17 10:17 127 98/49 01/23/17 10:17 127 98/49 01/23/17 09:30 146 77/47 01/23/17 09:13 134 117/63 01/23/17 08:42 138 133/80 01/23/17 08:17 98 60 01/23/17 07:00 96 Mechanical Ventilator 60 01/23/17 07:00 152 01/23/17 07:00 144 110/ (36) 01/23/17 07:00 99.1 144 20 110/53 (72) 97 01/23/17 07:00 60 01/23/17 05:09 116 116/69 01/23/17 05:00 116 116/69 (85) 127/79 (95) 01/23/17 04:32 140 107/53 01/23/17 04:14 164 102/57 01/23/17 04:00 98.8 152 21 102/57 (72) 96 100/70 (80) 01/23/17 04:00 70 01/23/17 04:00 96 Mechanical Ventilator 70 01/23/17 04:00 152 01/23/17 03:32 94 70 01/23/17 01:00 159 102/49 (66) 96/68 (77) 01/23/17 01:00 95 70 01/23/17 01:00 159 96/68 01/23/17 01:00 159 102/49 01/23/17 00:00 70 01/23/17 00:00 95 Mechanical Ventilator 70 01/23/17 00:00 174 01/23/17 00:00 100.1 174 19 107/53 (71) 95 87/66 (73) 01/22/17 23:30 176 92/68 01/22/17 23:00 172 94/69 01/22/17 22:54 177 102/62 01/22/17 22:50 93 70 01/22/17 22:30 178 98/72 01/22/17 22:30 178 98/72 01/22/17 22:30 178 102/55 (71) 98/72 (81) 01/22/17 22:00 180 89/67 01/22/17 22:00 180 89/67 -: 01/23/17 1840 01/23/17 0445 Microbiology 01/23/17 Urine Culture, Received Pending Physical Exam General Appearance: Obese Appearance Remarks Intubated and sedated. Neck Neck Exam: Neck Supple Pulmonary Resp Exam: Rhonchi, Decreased Bases, Diminished Breath Sounds, Poor Inspiratory Effort Cardiology CV Exam: Arrhythmia Gastrointestinal/Abdomen GI Exam: Soft, Non-Tender, Bowel Sounds Present, Distended Extremeties Extremities Exam: Moderate Edema, Pitting Edema, Dependent Edema Neurologic Neuro Exam: Sedated Assessment/Plan Problem List: (1) Acute renal failure ICD Codes: N17.9 - Acute kidney failure, unspecified (2) CHF (congestive heart failure) ICD Codes: I50.9 - Heart failure, unspecified Plan: Getting fluid off with HD (3) Respiratory failure ICD Codes: J96.90 - Respiratory failure, unspecified, unspecified whether with hypoxia or hypercapnia (4) Atrial fibrillation with RVR ICD Codes: I48.91 - Unspecified atrial fibrillation Status: Acute Plan: RVR on Milrinone Plan Patient has ASHLYN and most likely has ATN due to Hypotension. BP is still low. Urine out put is also low. HD done today and 6.5 liters removed. decrease pressors as tolerated. HD as needed. D/W the at bed side. Kalen Nicole MD Jan 23, 2017 21:47
[2017-01-23] MEDS ORDERED: RESP: LEVALBUTEROL HYDROCHLORIDE 1.25 MG/3 ML NEB (SCH) NEB ONE (23:30)
[2017-01-24] VITALS (18 sets, daily range): BP systolic 97–182; BP diastolic 59–99; PULSE 122–142; RESP 18; TEMP 99.2–101.4; O2SAT 91–95
[2017-01-24] MEDS: DOBUTamine PREMIX DRIP 250 ML IV SCH (00:22)
[2017-01-24] MEDS: METOCLOPRAMIDE HCL 10 MG/2 ML VIAL IV PUSH SCH ×3 (00:39→18:45)
[2017-01-24] MEDS: PIPERACIL-TAZO 2.25 GM PREMIX 50 ML IV SCH ×3 (00:40→19:02)
[2017-01-24] MEDS: MILRINONE INJ 20 MG in SODIUM CHLORIDE 0.9% INJ 80 ML IV PRN ×3 (01:01→22:48)
[2017-01-24] MEDS: VASOPRESSIN INJ 40 UNITS in DEXTROSE 5% IN WATER 100ML INJ 98 ML IV SCH ×2 (01:01)
[2017-01-24] MEDS: CHLORHEXIDINE GLUCONATE 2 % 1 PACK (2 CLOTHS)(taper/protocol) TOPICAL SCH (04:00)
[2017-01-24] MEDS: INSULIN NovoLIN REGULAR SUPPLEMENTAL SCALE SQ SCH ×6 (04:00→20:00)
[2017-01-24 04:12] LABS: AUTOMATED NEUTROPHIL # 7.4 TH/MM3 (1.8-7.7); BASOPHIL % 0.4 % (0.0-2.0); EOSINOPHIL # 0.4 TH/MM3 (0-0.4); EOSINOPHIL % 3.5 % (0.0-4.0); HEMATOCRIT 37.2 % (39.0-51.0); HEMO FLAGS AUTO DIFF; LYMPH % 10.4 % (9.0-44.0); MEAN CELL VOLUME 80.8 FL (80.0-100.0); MEAN CORPUSCULAR HEMOGLOBIN 25.9 PG (27.0-34.0); MONO % 12.2 % (0.0-8.0); NEUT % 73.5 % (16.0-70.0); PLATELET COUNT 84 TH/MM3 (150-450); RED CELL DISTRIBUTION WIDTH 16.1 % (11.6-17.2)
[2017-01-24] MEDS: ARTIFICIAL TEARS OPTH SOLN 15 ML BTL EACH EYE SCH ×3 (04:18→21:35)
[2017-01-24 04:22] LABS: APTT (PATIENT) 30.6 SEC (24.3-30.1); INTERNATIONAL NORMALIZED RATIO 1.5 RATIO; PROTHROMBIN TIME - PATIENT 16.4 SEC (9.8-11.6)
--- NOTE | 2017-01-24 04:36 | RADRPT ---
EXAM DATE/TIME: 01/24/2017 03:40 [facility] COMPARISON: CHEST SINGLE AP, January 23, 2017, 3:47. INDICATIONS : Short of breath. MEDICAL HISTORY : Hypertension. A-Fib SURGICAL HISTORY : None. ENCOUNTER: Subsequent ACUITY: 4 - 6 days PAIN SCORE: 0/10 LOCATION: Bilateral chest FINDINGS: Portable AP view the chest demonstrates a normal-sized cardiac silhouette. ETT, nasogastric tube, and bilateral internal jugular central lines remain present. One of the central lines is likely a pulmon abi artery catheter and is likely in the outflow tract. There is left basilar pleural-parenchymal opa city with blunting of the costophrenic sulcus. Mild airspace opacity is present in a patchy distribut ion the right mid and lower lungs, stable from the prior study. CONCLUSION: 1. Increased left basilar opacity likely representing small pleural effusion with associated volume l oss and/or consolidation. 2. Stable patchy airspace opacity in the right lung. Deondre Potts MD on January 24, 2017 at 4:32 Board Certified Radiologist. This report was verified electronically.
[2017-01-24 04:55] LABS: BANDS 10 % (0-6); BICARBONATE 27.8 MEQ/L (21.0-32.0); CALCIUM-PROTEIN CORRECTED 8.2 MG/DL (8.5-10.1); DIGOXIN 2.5 NG/ML (0.8-2.0); EOSINOPHILS 2 % (0-4); MAGNESIUM 2.2 MG/DL (1.5-2.5); MYELOCYTES 2 % (0-0); NEUTROPHIL # MANUAL DIFF 7.6 TH/MM3 (1.8-7.7); POLYS (SEG NEUTROPHILS) 64 % (16-70); POTASSIUM 4.4 MEQ/L (3.5-5.1); TOTAL BILIRUBIN ADULT 6.6 MG/DL (0.2-1.0); WBC DIFF SAMPLE 100
[2017-01-24 04:56] LABS: PLATELET ESTIMATE SMEAR LOW (NORMAL); PLATELET MORPHOLOGY NORMAL (NORMAL); SCAN/DIFF FINAL DIFF MANUAL
[2017-01-24] MEDS: RESP: LEVALBUTEROL HYDROCHLORIDE 1.25 MG/3 ML NEB (SCH) NEB ×4 (05:17→22:34)
[2017-01-24] MEDS: DEXMEDETOMIDINE INJ 200 MCG in SODIUM CHLORIDE 0.9% INJ 50 ML IV PRN ×3 (06:26→21:35)
--- NOTE | 2017-01-24 07:56 | HHI.CCPN ---
Subjective Remarks/Hospital Course 51-year-old male with a history of hypertension, presents for evaluation of ongoing and worsening symptoms of shortness of breath 1 week duration associated with chest pressure. Patient states, around 3 AM he was having significant difficulty breathing and decided to come to the ED. This has been an ongoing problem for which patient was supposed to get 2-D echo evaluation as an outpatient. While in emergency department, patient was found to be in A. fib. He denies any previous history of atrial fibrillation, this was also asymptomatic without palpitations or chest pain. CTA was negative for PE and chest x-ray did not reveal any pulmonary congestion. Patient had minimally elevated cardiac enzyme and a mildly elevated BNP of 233. He was started on Cardizem drip for rate control of atrial fibrillation and was admitted to CICU. filbert grower on January 20 rapid response was called due to patient's hypotension and hypoxemia. 01/20: Seen and examined initially around 09:30am. Patient with severe dyspnea, agitation, anxiety. In talking with the patient and his , he has a history that over the last approximately 1-2 years she's felt progressively short of breath and can no longer do the activities that he used to be able to do. He can only walk approximately 50 feet without getting winded. He denies any chest pain. He does say that he was diagnosed with sleep apnea approximately a year ago was placed on a BiPAP machine and this did in fact help some of his dyspnea, but he still had significant fatigue with walking even short distances. He and his both note that approximately back in August he had a flulike illness with significant muscle aches, malaise, headache. More recently , over the last 1-2 weeks he has had rapidly progressive shortness of breath, dyspnea on exertion, orthopnea, paroxysmal nocturnal dyspnea. This is presented also in the form of worsening anxiety is becoming very anxious about not being able to catch his breath. He presented to the emergency department yesterday with these complaints and was found to be in new onset atrial fibrillation and mildly hypoxemic. He was given 1 dose of diuretic. Overnight he was started on a diltiazem drip and became severely hypotensive with this. 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 He has been followed with quarterly LFTs which have always been in the mid 70s range per her. Otherwise he has not had any significant past medical history. He has a grandfather that of an PA in his 70s, and a grandmother that of a stroke in her 70s, but no other family history of cardiovascular disease. He has never smoked. He is a very rare drinker, and his confirms this that it is rare that he has any alcohol. He denies any illicit drug use. Review systems is negative unless previous stated. On my initial evaluation, the patient is restless, RASS +1, oriented but confused, CAM +. His extremities are almost mottled. He has severely delayed cap refill. His extremities are cool, very poorly perfused appearing. He has grossly elevated JVD above the level of mandible. I performed a bedside critical care ultrasound which demonstrated what appears to be severely reduced global LV function, very dilated IVC, no pericardial effusion. His troponins are only mildly elevated at 0.08 and this does not appear to be acute coronary syndrome. Highest on my differential at this point would be a new acute onset cardiomyopathy, likely nonischemic given his history. I immediately started the patient on dobutamine IV. I also martin a lactate which resulted at 7.4. I martin a ScVO2 which was 40%, suggestive of severe cardiogenic shock. I attempted arterial line placement, but the patient was too confused and the radial artery too poorly perfused for successful cannulation. At this point, the patient also had not made any urine throughout the day and was refusing raymundo catheter placement. Given his worsening shock and clinical decompensation, after discussion with his , decision was made to intubate the patient (see separate procedure note for details). After intubating the patient, I placed femoral arterial and central lines. He was then transferred to the CVICU where we placed PA catheter. The patient was given one attempt at forced diuresis with Bumex 4mg iv, diamox 500mg iv, diuril 500mg iv which did not produce any significant urine. Nephrology was emergently consulted and I placed emergent dialysis catheter. Starting PA numbers: RAP 17, PAP 38/23 (30), PCWP 23. CI 2.2, svo2 65% which has improved from prior 40%. Patient after being intubated was also severely hypoxemic with spo2 85% on 100% fio2. CXR demonstrates severe bilateral airspace disease consistent with severe pulmonary edema. I again discussed his care with Dr. Browne and we both agree that for his afib and rate control, digoxin (carefully dosed given renal dysfunction) would be the most appropriate therapy. We started with 0.5mg iv x 1 with a plan for a total of up to 1.25mg iv dosed in small doses as a load, and no maintenance therapy, with serial dig levels. 01/21: Patient remains on multiple pressors this a.m..PCWP 26, CI 4.2, PAP 44/ 26. Digoxin level I.5. Plans for dialysis today. Continued monitoring of elevated LFTs secondary to shock liver. 01/22: Afebrile. Overnight the patient developed A. fib RVR, heart rate 180s , required cardioversion 3 attempts, and was placed on amiodarone infusion. Amiodarone has been discontinued in the setting of elevated LFTs , though they are decreasing. The patient is noted to be thrombocytopenic with a platelet count today of 85, which is half of initial platelet count 3 days ago. This is most likely secondary to concomitant issues of shock liver and intrinsic hepatic disease of which the patient was being followed previously for suspected ZHANG. The patient was placed on a heparin infusion for A. fib .A Heparin platelet antibody test has been obtained this a.m.. The patient was unable to have MRI obtained yesterday secondary to hemodynamic instability. Vasopressors have been decreased over the last 24 hours. Plan for MRI this a.m. to rule out myocarditis. Blood and sputum cultures obtained this a.m. to rule out infectious process. Patient was noted to have possible UTI presumed by urine analysis, the patient has been prophylactically placed on Zosyn for empiric coverage. The patient underwent hemodialysis yesterday with 4 L removed. 01/23: Afebrile. Decreasing vasopressor requirements overnight. Remains in atrial fibrillation with RVR. Amiodarone initiated as other medications including beta gayle, calcium channel blockers and digoxin do not appear to be controlling heart rate with the present time. Subjective: 01/24: Tmax 9.5. Currently 99.9. Patient appears to be in atrial flutter at the present time. Discuss with Dr. Browne will attempt cardioversion and 50 J. MRI of heart after hemodialysis. Will [place] and replace post procedure. Noted congestive gallbladder. Will need medicine scan at some point. HIT weakly positive. Objective Vital Signs Date Time Temp Pulse Resp B/P (MAP) Pulse Ox O2 Delivery O2 Flow Rate FiO2 01/24/17 05:45 93 55 01/24/17 04:00 99.9 139 18 138/85 (102) 109/66 (80) 01/24/17 03:00 Mechanical Ventilator 01/20/17 09:00 6.00 Intake and Output 01/24/17 01/24/17 01/25/17 08:00 16:00 00:00 Intake Total 924 ml Output Total 850 ml Balance 74 ml Result Diagram: 01/24/17 0356 01/24/17 0356 Other Results Microbiology Date/Time Source Procedure Growth Status 01/22/17 08:21 Blood Peripheral Aerobic Blood Culture - Preliminary NO GROWTH IN 1 DAY Resulted 01/22/17 08:21 Blood Peripheral Anaerobic Blood Culture - Preliminary NO GROWTH IN 1 DAY Resulted 01/22/17 08:00 Sputum Expectorated Sputum Gram Stain - Final Resulted 01/22/17 08:00 Sputum Expectorated Sputum Sputum Culture - Preliminary HEAVY GROWTH NORMAL RESPIRATORY MARCUS... Resulted 01/23/17 17:21 Urine Catheterized Urine Urine Culture Pending Received Imaging Last Impressions Chest X-Ray 01/24/17 0600 Signed Impressions: Service Date/Time: Tuesday, January 24, 2017 03:40 - CONCLUSION: 1. Increased left basilar opacity likely representing small pleural effusion with associated volume loss and/or consolidation. 2. Stable patchy airspace opacity in the right lung. Deondre Potts MD Abdomen Ultrasound 01/23/17 0000 Signed Impressions: Service Date/Time: Monday, January 23, 2017 09:12 - CONCLUSION: 1. Limited evaluation secondary to overlying bowel gas 2. Gallbladder wall thickening without stones. Acalculus cholecystitis is not excluded. Radionuclide imaging is recommended for further evaluation if clinically indicated. Sixto López MD Abdomen X-Ray 01/22/17 0400 Signed Impressions: Service Date/Time: Sunday, January 22, 2017 04:16 - CONCLUSION: Normal examination. Rob Gerber MD CT Angiography 01/19/17 0000 Signed Impressions: Service Date/Time: December 06:36 - CONCLUSION: 1. Negative for pulmonary embolism. Small effusions with ground glass opacity characteristic of mild edema. There is also peribronchial thickening. Arsenio Amaya MD Objective Remarks GENERAL: 51 old male, critically ill currently orotracheally intubated SKIN: Warm and dry. No rash HEAD: Normocephalic. EYES: Pupils are round 2 mm bilaterally and reactive. No scleral icterus. No injection or drainage. NECK: Supple, trachea midline. Right IJ Cordis with [place]-Adry catheter and left hemodialysis catheter clean dry and intact CARDIOVASCULAR: tachycardic IR. S1, S2. No S4. Without murmurs, clicks, gallops or rubs ABDOMINAL: Abdomen obese, soft, distended.. Tympanic/Hypoactive bowel sounds. Minimal NG tube secretions low intermittent wall suction. Left arterial line/ central line clean dry and intact without erythema MUSCULOSKELETAL: 2+ peripheral edema in extremities. Dopplerable pulses. NEURO EXAM: RASS-3. Positive gag. Positive corneal reflex. Minimal withdrawals to noxious stimuli pain. Procedures 01/22-obtain cardiac MRI Date of Insertion: Jan 20, 2017 Line: Central Venous Catheter Side: Left Location: Femoral A/P Assessment and Plan Neuro/Psych: Acute toxic metabolic encephalopathy secondary to hypoxia/acute kidney injury rule out elevated ammonia Depression disorder NOS Anxiety Chronic benzodiazepine use - Versed drip at 4 mg an hour and fentanyl infusion at 100 g an hour for ventilator synchrony - Goal of RASS -2 - Daily sedation vacation when appropriate - Neuro checks per ICU protocol - Holding alprazolam 1 mg at night for depression/anxiety - Holding escitalopram 20 mg a night with current dysrhythmia, possible platelet dysfunction. Resume as clinically indicated - Holding bupropion 150 mg by mouth daily with dysrhythmias. Resume as clinically indicated Respiratory: Acute hypoxic respiratory failure/multifactorial - intubated 01/20 Pulmonary edema Obstructive sleep apnea History of OHS ACV 18/650/ Vsync - vent bundle, HOB at 30 degrees -Xopenex every 6 hours with albuterol aerosols every 2 hours when necessary dyspnea - no SBT at this time secondary to hemodynamic instability -01/22 CXR -stable bilateral pulmonary infiltrates. Pulmonary function test 2015 - normal Cardiovascular: Cardiogenic shock Severe dilated cardiomyopathy- EF 10%. Likely acute Elevated Troponin secondary to demand ischemia/Type II NSTEMI Acute Systolic Congestive Heart Failure Exacerbation New-onset Atrial Fibrillation with Rapid Ventricular Response History of hypertension Moderate TR - cardiology following: Dr. Browne - 01/20 2d echo -ejection fraction 20%. Moderate LV dilatation. Small pericardial effusion. Pulmonary arterial pressure 3-4 mmHg. Moderate TR. - PAP 42/17 -Cardiac index 3.8. SVR 472. CVP 17. -01/22- cardioversion x3 attempts. - digoxin given yesterday. Level2.5 today. Recheck in a.m. -Overnight restarted amiodarone drip at 0.5 mg a minute. - Downtrended Troponins 0.27-->0.18 - Milrinone currently at 0.3 mcg/kg/min, vasopressin at 0.04 units/minute and Yung-Synephrine at 70 grams per minute. Norepinephrine drip and dobutamine drips discontinued overnight - 01/24 MRI- F/U results concern for myocarditis at the [place]-Adry catheter pulled -Continue low-dose aspirin 81 mg daily. Will hold if signs of active bleeding persist - Holding losartan 25 mg by mouth daily light of acute kidney injury/ vasopressor requirements Renal: Severe acute kidney injury requiring emergent Renal replacement therapy Acute intravascular volume overload Nonoliguric -- Strict I/Os - Nephrology following, Dr. Nicole - Hemodialysis per nephrology. -6500 cc yesterday - trend renal function and urine output. -540 cc urine output past 24 hours - Urine eosinophils negative. FEN/GI: Shock liver - elevated transaminases Morbid obesity with BMI greater than 40 Constipation Possible GI bleed - Remains NPO while in shock/possible GI bleed- Continue OGT to LIWS - Dietary consultation - Liver ultrasound revealed congested gallbladder. Rule out cholecystitis. - 01/22- F/U KUB - General downward trending LFTs - F/U hepatitis panel,HIV, LUCY -Replace electrolytes as clinically indicated - Consult GI for possible endoscopy when stable. Possibly will need anticoagulation. Heme/ID: Elevated PT/PTT secondary to acute liver failure Elevated ferritin Normocytic anemia Thrombocytopenia UTI? 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 post-viral cardiomyopathy could be a cause of new -onset NICM, but no evidence of active infection. INR currently 1.7. - Currently on piperacillin/tazobactam 2.25 g IV every 8. 0.75 g supplement with hemodialysis. Pertinent cultures 01/22 - blood cultures 2 - pending 01/22 - sputum - pending 01/20 - UA - no growth -F/U HIT panel- thrombocytopenia most likely secondary to hepatic injury the weakly positive. LAST pending. Re consulted hematology for recommendations regarding anticoagulation. Endocrine: Hyperglycemia of critical illness -- SSI, medium scale with Novulog, every 4 hours -- TSH 1.98 on admission - Check hemoglobin A1c Prophylaxis: GI Prophylaxis -Switch to pantoprazole 40 mg IV twice a day in light of possible bleeding DVT Prophylaxis -- SCDs -- Heparin infusion (Afib) held in light of possible GI bleeding Lines: - 01/20 left femoral arterial line - 01/20 left femoral triple lumen catheter - 01/20 right IJ 8.5 Fr Cordis introducer sheath - 01/20 right IJ 6 Fr PA Catheter - 01/20 left IJ 14 Fr 20cm VasCath - 01/20 Raymundo Critical care time 35 minutes. D/W . Luba. and daughter. Care plan discussed. All questions answered. Jose Rafael Snyder MD Jan 24, 2017 07:56
[2017-01-24] MEDS: PANTOPRAZOLE SODIUM 40 MG VIAL IV PUSH SCH ×2 (08:25→21:34)
[2017-01-24] MEDS: CHLORHEXIDINE 0.12% (ORAL KIT) 15 ML CUP MT SCH ×2 (08:26→20:00)
[2017-01-24] MEDS ORDERED: DEXMEDETOMIDINE HCL 200 MCG/2 ML VIAL ONE (08:48)
--- NOTE | 2017-01-24 08:50 | PD.ONC.PN ---
Subjective Subjective Remarks sedated Objective Data Date Time Temp Pulse Resp B/P (MAP) Pulse Ox O2 Delivery O2 Flow Rate FiO2 01/24/17 07:57 93 55 01/24/17 07:00 93 Mechanical Ventilator 55 01/24/17 05:45 93 55 01/24/17 05:17 93 55 01/24/17 04:00 99.9 139 18 138/85 (102) 93 109/66 (80) 01/24/17 03:00 139 01/24/17 03:00 91 Mechanical Ventilator 55 01/24/17 03:00 55 01/24/17 03:00 139 138/85 (102) 109/66 (80) 01/24/17 01:01 137 01/24/17 01:01 137 01/24/17 00:53 92 55 01/23/17 23:00 91 Mechanical Ventilator 55 01/23/17 23:00 134 01/23/17 23:00 134 152/84 (106) 136/82 (100) 01/23/17 23:00 55 01/23/17 23:00 100.1 134 18 154/86 (108) 91 132/81 (98) 01/23/17 21:46 92 55 01/23/17 20:00 98.7 133 18 157/87 (110) 93 01/23/17 19:31 133 154/85 01/23/17 19:30 133 01/23/17 19:00 93 Mechanical Ventilator 55 01/23/17 19:00 55 01/23/17 19:00 133 01/23/17 19:00 133 01/23/17 16:52 98 55 01/23/17 15:00 135 01/23/17 15:00 60 01/23/17 15:00 135 101/55 (70) 01/23/17 15:00 99.6 134 18 101/55 (70) 91 01/23/17 15:00 96 Mechanical Ventilator 60 01/23/17 12:18 137 87/47 01/23/17 11:00 60 01/23/17 11:00 96 Mechanical Ventilator 60 01/23/17 11:00 126 01/23/17 11:00 99.3 126 20 94/58 (70) 97 01/23/17 10:17 127 98/49 01/23/17 10:17 127 98/49 01/23/17 09:30 146 77/47 01/23/17 09:13 134 117/63 01/23/17 08:42 138 133/80 01/24/17 01/24/17 01/24/17 06:59 14:59 22:59 Intake Total 924 ml Output Total 850 ml Balance 74 ml Result Diagram: 01/24/17 0356 01/24/17 0356 Laboratory Results Item Value Date Time Heparin-Induced Platelet Ab (Elina) Weak Positive 01/22/17 0821 Laboratory Tests Test 01/23/17 11:20 01/23/17 11:25 01/23/17 17:21 01/23/17 18:40 Ammonia 19 MCMOL/L Erythrocyte Sedimentation Rate 13 mm/hr C-Reactive Protein 17.60 MG/DL Rapid Plasma Reagin NON-REACTIVE Urine Color YELLOW Urine Turbidity HAZY Urine pH 6.5 Urine Specific [place] 1.016 Urine Protein 100 mg/dL Urine Glucose (UA) NEG mg/dL Urine Ketones NEG mg/dL Urine Occult Blood MOD Urine Nitrite NEG Urine Bilirubin NEG Urine Urobilinogen LESS THAN 2.0 MG/DL Urine Leukocyte Esterase MOD Urine RBC 19 /hpf Urine WBC 8 /hpf Urine Squamous Epithelial Cells <1 /hpf Urine Amorphous Sediment RARE Urine Hyaline Casts 1 /lpf Urine Mucus FEW /lpf Microscopic Urinalysis Comment CATH-CULTURE IND Hemoglobin 11.6 GM/DL Hematocrit 35.8 % Test 01/23/17 23:47 01/24/17 03:56 01/24/17 08:15 White Blood Count 10.0 TH/MM3 Red Blood Count 4.60 MIL/MM3 Hemoglobin 11.9 GM/DL Hematocrit 37.2 % Mean Corpuscular Volume 80.8 FL Mean Corpuscular Hemoglobin 25.9 PG Mean Corpuscular Hemoglobin Concent 32.0 % Red Cell Distribution Width 16.1 % Platelet Count 84 TH/MM3 Mean Platelet Volume 7.7 FL Neutrophils (%) (Auto) 73.5 % Lymphocytes (%) (Auto) 10.4 % Monocytes (%) (Auto) 12.2 % Eosinophils (%) (Auto) 3.5 % Basophils (%) (Auto) 0.4 % Neutrophils # (Auto) 7.4 TH/MM3 Lymphocytes # (Auto) 1.0 TH/MM3 Monocytes # (Auto) 1.2 TH/MM3 Eosinophils # (Auto) 0.4 TH/MM3 Basophils # (Auto) 0.0 TH/MM3 CBC Comment AUTO DIFF Differential Total Cells Counted 100 Neutrophils % (Manual) 64 % Band Neutrophils % 10 % Lymphocytes % 18 % Monocytes % 4 % Eosinophils % 2 % Neutrophils # (Manual) 7.6 TH/MM3 Myelocytes 2 % Differential Comment FINAL DIFF MANUAL Atypical Lymphocytes % Platelet Estimate LOW Platelet Morphology Comment NORMAL Red Cell Morphology Comment NORMAL Prothrombin Time 16.4 SEC Prothromb Time International Ratio 1.5 RATIO Activated Partial Thromboplast Time 30.6 SEC Blood Urea Nitrogen 58 MG/DL Creatinine 7.36 MG/DL Random Glucose 90 MG/DL Total Protein 5.7 GM/DL Albumin 3.1 GM/DL Calcium Level 7.4 MG/DL Phosphorus Level 3.5 MG/DL Magnesium Level 2.2 MG/DL Alkaline Phosphatase 73 U/L Aspartate Amino Transf (AST/SGOT) 491 U/L Alanine Aminotransferase (ALT/SGPT) 1700 U/L Total Bilirubin 6.6 MG/DL Sodium Level 139 MEQ/L Potassium Level 4.4 MEQ/L Chloride Level 101 MEQ/L Carbon Dioxide Level 27.8 MEQ/L Anion Gap 10 MEQ/L Estimat Glomerular Filtration Rate 8 ML/MIN Protein Corrected Calcium 8.2 MG/DL Random Vancomycin Level 13.2 COMMENT Digoxin Level 2.5 NG/ML Culture Results Microbiology Date/Time Source Procedure Growth Status 01/22/17 08:21 Blood Peripheral Aerobic Blood Culture - Preliminary NO GROWTH IN 1 DAY Resulted 01/22/17 08:21 Blood Peripheral Anaerobic Blood Culture - Preliminary NO GROWTH IN 1 DAY Resulted 01/22/17 07:40 Blood Peripheral Aerobic Blood Culture - Preliminary NO GROWTH IN 1 DAY Resulted 01/22/17 07:40 Blood Peripheral Anaerobic Blood Culture - Preliminary NO GROWTH IN 1 DAY Resulted 01/22/17 08:00 Sputum Expectorated Sputum Gram Stain - Final Resulted 01/22/17 08:00 Sputum Expectorated Sputum Sputum Culture - Preliminary HEAVY GROWTH NORMAL RESPIRATORY MARCUS... Resulted 01/23/17 17:21 Urine Catheterized Urine Urine Culture Pending Received Imaging Studies Last 24 hours Impressions Chest X-Ray 01/24/17 0600 Signed Impressions: Service Date/Time: Tuesday, January 24, 2017 03:40 - CONCLUSION: 1. Increased left basilar opacity likely representing small pleural effusion with associated volume loss and/or consolidation. 2. Stable patchy airspace opacity in the right lung. Deondre Potts MD Administered Medications Medications (Trade) Dose Ordered Sig/Jennifer Route PRN Reason Start Time Stop Time Status Last Admin Dose Admin Sodium Chloride (NS Flush) 2 ml BID IV FLUSH 01/19/17 09:00 01/23/17 20:49 Bupropion HCl (Wellbutrin Sr) 150 mg DAILY PO 01/20/17 09:00 Future Hold 01/22/17 09:36 Escitalopram Oxalate (Lexapro) 20 mg HS PO 01/19/17 21:00 Future Hold 01/22/17 20:47 Aspirin (Ecotrin Ec) 81 mg DAILY PO 01/20/17 09:00 01/23/17 14:37 Midazolam HCl 100 ml @ 2 mls/hr Q24H PRN IV SEDATION 01/20/17 13:18 01/23/17 21:25 Norepinephrine Bitartrate 16 mg/ Dextrose 266 ml @ 1.99 mls/hr Q24H PRN IV Blood pressure management 01/20/17 13:21 Future Hold 01/22/17 09:40 Nitroglycerin/ Dextrose 250 ml @ 1.5 mls/hr Q24H PRN IV Hypertension 01/20/17 15:55 01/20/17 16:53 Sodium Chloride 1,000 ml @ 0 mls/hr Q0M PRN OTHER For Prime & Rinse Back 01/20/17 17:22 01/21/17 12:49 Albumin Human (Albumin 25% Inj) 25 gm UNSCH PRN IV WITH DIALYSIS 01/20/17 17:30 01/23/17 14:35 Heparin Sodium (Porcine) (Heparin Inj) UNSCH PRN .XX WITH DIALYSIS 01/20/17 17:30 01/23/17 14:35 Gentamicin Sulfate (Gentamicin (Dialysis) Inj) 20 mg UNSCH PRN IV WITH DIALYSIS 01/20/17 17:30 01/23/17 14:34 Chlorhexidine Gluconate (Peridex 0.12% Liq) 15 ml BID@08,20 MT 01/20/17 20:00 01/24/17 08:26 Calcium Chloride 1 gm/Sodium Chloride 110 ml @ 110 mls/hr UNSCH PRN IV SEE LABEL COMMENTS 01/21/17 00:30 01/23/17 06:15 Milrinone Lactate 20 mg/Sodium Chloride 100 ml @ 13.32 mls/ hr Q7H31M PRN IV IF PATIENT TOLERATES 01/21/17 05:30 01/24/17 01:01 Fentanyl Citrate 250 ml @ 5 mls/hr Q24H PRN IV SEDATION 01/21/17 10:16 01/23/17 21:26 Heparin Sodium/ Dextrose 250 ml @ 17.088 mls/ hr [id number] PRN IV Coagulation management 01/22/17 07:39 Future Hold 01/22/17 08:39 Amiodarone HCl 450 mg/Dextrose 250 ml @ 33.33 mls/ hr Q7H31M IV 01/22/17 18:57 01/23/17 19:30 Docusate Sodium (Colace Liq) 100 mg Q12HR NG 01/23/17 09:00 01/23/17 20:49 Sennosides (Senna Liq) 8.8 mg BID NG 01/23/17 09:00 01/23/17 20:49 Polyethylene Glycol (Miralax) 17 gm BID NG 01/23/17 09:00 01/23/17 20:49 Metoclopramide HCl (Reglan Inj) 5 mg Q8H IV PUSH 01/23/17 08:00 01/24/17 08:26 Pantoprazole Sodium (Protonix Inj) 40 mg Q12H IV PUSH 01/23/17 08:00 01/24/17 08:25 Vasopressin 40 units/Dextrose 100 ml @ 4.5 mls/hr [id number] IV 01/23/17 08:01 01/24/17 01:01 Phenylephrine HCl 160 mg/Dextrose 500 ml @ 7.5 mls/hr Q24H PRN IV Blood pressure management 01/23/17 08:02 01/23/17 10:17 Artificial Tears (Tears Naturale Opth Soln) 1 drop Q8HR EACH EYE 01/23/17 14:00 01/24/17 04:18 Dexmedetomidine HCl 200 mcg/ Sodium Chloride 52 ml @ 7.5 mls/hr Q6H56M PRN IV SEDATION 01/23/17 10:11 01/24/17 06:26 Piperacillin Sod/ Tazobactam Sod 50 ml @ 100 mls/hr Q8H IV 01/23/17 17:00 01/24/17 00:40 Levalbuterol HCl (Xopenex Neb) 1.25 mg Q6HR NEB NEB 01/24/17 05:09 01/24/17 05:17 Objective Remarks GENERAL: acutely ill on ventilator SKIN: Warm and dry. HEAD: Normocephalic. EYES: No scleral icterus. No injection or drainage. NECK: Supple, trachea midline. No JVD or lymphadenopathy. LYMPHATIC: No adenopathy. CARDIOVASCULAR: Regular rate and rhythm 13 (a flutter. RESPIRATORY: Breath sounds decreased at bases. GASTROINTESTINAL: mild distention and soft. EXTREMITIES: +1 edema. MUSCULOSKELETAL: Adequate muscle tone. NEUROLOGICAL: sedated, Assessment/Plan Assessment 1: I very much doubt that he has HIT with a weekly + elina in a patient who is critically ill and await the serotonin release assay. In meantime would do the following - discontinue aspirin due to increased bleeding risks with 2 anticoagulants - begin Argatroban (not renally excreted but will need to be cautious and use reduced doses due to liver injury) - await serotonin release assay and if negative can use heparin or simply convert to Coumadin -can not use Xa inhibitors or pradaxa due to renal failure. situation discussed with Dr. Noble. Vladislav Amezquita MD Jan 24, 2017 08:50
[2017-01-24 08:57] LABS: INDIRECT BILIRUBIN 1.7 MG/DL (0.0-0.8); TOTAL BILIRUBIN ADULT 6.5 MG/DL (0.2-1.0)
[2017-01-24] MEDS: ASPIRIN EC 81 MG TABEC PO SCH (09:00)
[2017-01-24] MEDS: SODIUM CHLORIDE 0.9% FLUSH 10 ML FLUSH IV FLUSH SCH ×2 (09:00→21:36)
[2017-01-24] MEDS ORDERED: ARGATROBAN INJ 250 MG in SODIUM CHLOR 0.9% 250 ML INJ 250 ML IV PRN (09:00)
[2017-01-24 09:14] LABS: INTERNATIONAL NORMALIZED RATIO 1.4 RATIO; PROTHROMBIN TIME - PATIENT 15.6 SEC (9.8-11.6)
[2017-01-24] MEDS: SENNOSIDES SYRUP 8.8 MG/5 ML CUP NG SCH ×2 (09:23→21:00)
[2017-01-24] MEDS: POLYETHYLENE GLYCOL 17 GM PKG NG SCH ×2 (09:23→21:33)
[2017-01-24] MEDS: DOCUSATE SODIUM 100 MG/10 ML UDC NG SCH ×2 (09:23→21:34)
[2017-01-24] MEDS: AMIODARONE INJ 450 MG in DEXTROSE 5% IN WATE(EXCEL) INJ 241 ML IV SCH ×4 (11:15→21:38)
[2017-01-24] MEDS ORDERED: ACETAMINOPHEN 325 MG/10.15 ML UDC NG PRN (11:15)
[2017-01-24] MEDS: fentaNYL DRIP 250 ML IV PRN (11:36)
[2017-01-24] MEDS ORDERED: ACETAMINOPHEN 650 MG/20.3 ML UDC NG PRN (12:00)
[2017-01-24] MEDS: LACTULOSE SYRUP 20 GM/30 ML CUP PO SCH ×2 (14:40→17:44)
--- NOTE | 2017-01-24 15:56 | PD.CONS ---
HPI History of Present Illness This is a 51 year old male with hx HTN, elevated LFTs who presented to hospital with worsening SOB over the course of a week per EMR. Pt currently intubated on vent, hx obtained from EMR. He developed AF w/ AVR requiring cardioversion x 3, currently on amiodarone. GI has been consulted for possible GIB, abnormal gallbladder on US, and elevated LFTs. There was nursing report of blood in NGT few days ago, none since and no further details available. Pt reportedly has hx mildly elevated LFTs and there was mention in hx of poss PATTEROSN cirrhosis. He has been started on argatroban. (Eugenie Daniel) PFSH Past Medical History Anxiety: Yes Cardiac Catheterization: Yes (2007) Cardiomyopathy: Yes (was told recently that he had an enlarged heart-needs an echo (01/19)) GERD: Yes Hypertension: Yes Respiratory: Yes (pt gets SOB w/movement ) Sleep Apnea: Yes Past Surgical History Appendectomy: Yes Gynecologic Surgery: Yes (vasectomy) (Eugenie Daniel) Coded Allergies: No Known Allergies (Unverified , 01/19/17) Family History Father has history of hypertension Social History Alcohol Use: No Tobacco Use: No Substance Use: No (Eugenie Daniel) Review of Systems ROS unable to obtain (Eugenie Daniel) GI Exam Vitals I&O Vital Signs Date Time Temp Pulse Resp B/P (MAP) Pulse Ox O2 Delivery O2 Flow Rate FiO2 01/24/17 15:18 95 55 01/24/17 12:51 93 55 01/24/17 11:32 128 01/24/17 11:15 142 105/66 01/24/17 11:15 142 105/66 01/24/17 11:00 93 Mechanical Ventilator 55 01/24/17 11:00 55 01/24/17 07:57 93 55 01/24/17 07:00 100.4 142 18 118/71 (87) 93 97/59 (72) 01/24/17 07:00 142 118/71 (87) 97/59 (72) 01/24/17 07:00 142 01/24/17 07:00 55 01/24/17 07:00 93 Mechanical Ventilator 55 01/24/17 05:45 93 55 01/24/17 05:17 93 55 01/24/17 04:00 99.9 139 18 138/85 (102) 93 109/66 (80) 01/24/17 03:00 139 01/24/17 03:00 91 Mechanical Ventilator 55 01/24/17 03:00 55 01/24/17 03:00 139 138/85 (102) 109/66 (80) 01/24/17 01:01 137 01/24/17 01:01 137 01/24/17 00:53 92 55 01/23/17 23:00 91 Mechanical Ventilator 55 01/23/17 23:00 134 01/23/17 23:00 134 152/84 (106) 136/82 (100) 01/23/17 23:00 55 01/23/17 23:00 100.1 134 18 154/86 (108) 91 132/81 (98) 01/23/17 21:46 92 55 01/23/17 20:00 98.7 133 18 157/87 (110) 93 01/23/17 19:31 133 154/85 01/23/17 19:30 133 01/23/17 19:00 93 Mechanical Ventilator 55 01/23/17 19:00 55 01/23/17 19:00 133 01/23/17 19:00 133 01/23/17 16:52 98 55 I/O 01/23/17 01/23/17 01/23/17 01/24/17 01/24/17 01/24/17 07:00 15:00 23:00 07:00 15:00 23:00 Intake Total 1120 ml 1112 ml 926 ml 924 ml Output Total 430 ml 6500 ml 190 ml 850 ml Balance 690 ml -5388 ml 736 ml 74 ml Intake Oral 0 ml 0 ml IV Total 1000 ml 1112 ml 766 ml 924 ml Tube Feeding 160 ml Other 120 ml Output Urine Total 130 ml 90 ml 450 ml Gastric Drainage Total 300 ml 100 ml 400 ml Hemodialysis 6500 ml # Bowel Movements 0 0 0 Imaging Last Impressions Chest X-Ray 01/24/17 0600 Signed Impressions: Service Date/Time: Tuesday, January 24, 2017 03:40 - CONCLUSION: 1. Increased left basilar opacity likely representing small pleural effusion with associated volume loss and/or consolidation. 2. Stable patchy airspace opacity in the right lung. Deondre Potts MD Abdomen Ultrasound 01/23/17 0000 Signed Impressions: Service Date/Time: Monday, January 23, 2017 09:12 - CONCLUSION: 1. Limited evaluation secondary to overlying bowel gas 2. Gallbladder wall thickening without stones. Acalculus cholecystitis is not excluded. Radionuclide imaging is recommended for further evaluation if clinically indicated. Sixto López MD Abdomen X-Ray 01/22/17 0400 Signed Impressions: Service Date/Time: Sunday, January 22, 2017 04:16 - CONCLUSION: Normal examination. Rob Gerber MD CT Angiography 01/19/17 0000 Signed Impressions: Service Date/Time: December 06:36 - CONCLUSION: 1. Negative for pulmonary embolism. Small effusions with ground glass opacity characteristic of mild edema. There is also peribronchial thickening. Arsenio Amaya MD Laboratory Test 01/23/17 17:21 01/23/17 18:40 01/23/17 23:47 01/24/17 03:56 Urine Color YELLOW Urine Turbidity HAZY Urine pH 6.5 Urine Specific [place] 1.016 Urine Protein 100 mg/dL Urine Glucose (UA) NEG mg/dL Urine Ketones NEG mg/dL Urine Occult Blood MOD Urine Nitrite NEG Urine Bilirubin NEG Urine Urobilinogen LESS THAN 2.0 MG/DL Urine Leukocyte Esterase MOD Urine RBC 19 /hpf Urine WBC 8 /hpf Urine Squamous Epithelial Cells <1 /hpf Urine Amorphous Sediment RARE Urine Hyaline Casts 1 /lpf Urine Mucus FEW /lpf Microscopic Urinalysis Comment CATH-CULTURE IND Hemoglobin 11.6 GM/DL 11.9 GM/DL Hematocrit 35.8 % 37.2 % White Blood Count 10.0 TH/MM3 Red Blood Count 4.60 MIL/MM3 Mean Corpuscular Volume 80.8 FL Mean Corpuscular Hemoglobin 25.9 PG Mean Corpuscular Hemoglobin Concent 32.0 % Red Cell Distribution Width 16.1 % Platelet Count 84 TH/MM3 Mean Platelet Volume 7.7 FL Neutrophils (%) (Auto) 73.5 % Lymphocytes (%) (Auto) 10.4 % Monocytes (%) (Auto) 12.2 % Eosinophils (%) (Auto) 3.5 % Basophils (%) (Auto) 0.4 % Neutrophils # (Auto) 7.4 TH/MM3 Lymphocytes # (Auto) 1.0 TH/MM3 Monocytes # (Auto) 1.2 TH/MM3 Eosinophils # (Auto) 0.4 TH/MM3 Basophils # (Auto) 0.0 TH/MM3 CBC Comment AUTO DIFF Differential Total Cells Counted 100 Neutrophils % (Manual) 64 % Band Neutrophils % 10 % Lymphocytes % 18 % Monocytes % 4 % Eosinophils % 2 % Neutrophils # (Manual) 7.6 TH/MM3 Myelocytes 2 % Differential Comment FINAL DIFF MANUAL Atypical Lymphocytes % Platelet Estimate LOW Platelet Morphology Comment NORMAL Red Cell Morphology Comment NORMAL Prothrombin Time 16.4 SEC Prothromb Time International Ratio 1.5 RATIO Activated Partial Thromboplast Time 30.6 SEC Blood Urea Nitrogen 58 MG/DL Creatinine 7.36 MG/DL Random Glucose 90 MG/DL Total Protein 5.7 GM/DL Albumin 3.1 GM/DL Calcium Level 7.4 MG/DL Phosphorus Level 3.5 MG/DL Magnesium Level 2.2 MG/DL Alkaline Phosphatase 73 U/L Aspartate Amino Transf (AST/SGOT) 491 U/L Alanine Aminotransferase (ALT/SGPT) 1700 U/L Total Bilirubin 6.6 MG/DL Sodium Level 139 MEQ/L Potassium Level 4.4 MEQ/L Chloride Level 101 MEQ/L Carbon Dioxide Level 27.8 MEQ/L Anion Gap 10 MEQ/L Estimat Glomerular Filtration Rate 8 ML/MIN Protein Corrected Calcium 8.2 MG/DL Random Vancomycin Level 13.2 COMMENT Digoxin Level 2.5 NG/ML Test 01/24/17 08:15 01/24/17 09:00 Total Bilirubin 6.5 MG/DL Direct Bilirubin 4.8 MG/DL Indirect Bilirubin 1.7 MG/DL Prothrombin Time 15.6 SEC Prothromb Time International Ratio 1.4 RATIO Activated Partial Thromboplast Time 31.0 SEC Fibrinogen 449 mg/dL Date/Time Source Procedure Growth Status 01/22/17 08:21 Blood Peripheral Aerobic Blood Culture - Preliminary NO GROWTH IN 2 DAYS Resulted 01/22/17 08:21 Blood Peripheral Anaerobic Blood Culture - Preliminary NO GROWTH IN 2 DAYS Resulted 01/22/17 08:00 Sputum Expectorated Sputum Gram Stain - Final Complete 01/22/17 08:00 Sputum Expectorated Sputum Sputum Culture - Final HEAVY GROWTH NORMAL RESPIRATORY MARCUS Complete 01/23/17 17:21 Urine Catheterized Urine Urine Culture - Preliminary No growth. Resulted Physical Examination HEENT: normocephalic; atraumatic; no jaundice. intubated, OGT to suction with bilious drainage CHEST: Coarse CARDIAC: tachy ABDOMEN: Soft, obese,no hepatosplenomegaly; bowel sounds are present in all four quadrants. EXTREMITIES: No clubbing, cyanosis, generalize edema SKIN: Normal; no rash; no jaundice. CALL BOX WIRER: intubated (Eugenie Daniel) Assessment and Plan Plan ASSESSMENT - anemia - Hgb 14.9 on admission and has dropped to 11.9 but this has been stable over last few days, could be dilutional. questionable UGIB with report of blood in NGT none since and no other bleeding observed. - elev LFTs - on admission AST 70, ALT 125, ALP 79, Tbil 1.0 and increased as high as AST>7000, ALT>5000, ALP 64. LFTs trending down for most part w/ exception of bili continuing to rise, 6.5 today. US abd 01/23 --> fatty liver infiltration or helpatocellular dz, GB wall thickening, acalculous cholecystitis not excluded, radionuclide imaging recommended. questionable hx of PATTERSON cirrhosis. extreme elev LFTs could be d/t shock liver. hep panel neg, LUCY neg, will get rest of w/u to r/o other cause. No significant hx ETOH use. - acute toxic metabolic encephalopathy per [facility], on HD nephrology following - cardiogenic shock,a cute systolic CHF, AF w/ RVR per [facility] - acute hypoxic respiratory failure per [facility] PLAN - monitor HH - notify GI of active bleeding - consider HIDA when more stable - AMA, ASMA, a1 antitrypsin, AFP, ceruloplasmin - monitor LFTs - supportive care - further recs to follow THis pt seen by Dr Rangel and myself and this note is written on his behalf (Eugenie Daniel) Physician Comments Seen and examined, plan to role out chronic liver disease. Will follow up with you. (Lorna Rangel MD) Eugenie Daniel Jan 24, 2017 15:56 Lorna Rangel MD Jan 24, 2017 20:31
[2017-01-24] MEDS: ALBUMIN HUMAN 25% 25 GM/100 ML BAGP IV PRN (16:15)
--- NOTE | 2017-01-24 17:37 | HHI.NPPN ---
Subjective History of Present Illness 51-year-old male with past medical history of hypertension, anxiety who was admitted with worsening shortness of breath. I was called to see the patient because of decreased urine output and increased creatinine. The patient develop ASHLYN, Hypotension, Resp. failure. He was found to have low EF of 20%. Additional Remarks Patient remain on the vent. and still on the pressors, seen during HD. Objective Data Data Vital Signs Date Time Temp Pulse Resp B/P (MAP) Pulse Ox O2 Delivery O2 Flow Rate FiO2 01/24/17 15:18 95 55 01/24/17 12:51 93 55 01/24/17 11:32 128 01/24/17 11:15 142 105/66 01/24/17 11:15 142 105/66 01/24/17 11:00 93 Mechanical Ventilator 55 01/24/17 11:00 55 01/24/17 07:57 93 55 01/24/17 07:00 100.4 142 18 118/71 (87) 93 97/59 (72) 01/24/17 07:00 142 118/71 (87) 97/59 (72) 01/24/17 07:00 142 01/24/17 07:00 55 01/24/17 07:00 93 Mechanical Ventilator 55 01/24/17 05:45 93 55 01/24/17 05:17 93 55 01/24/17 04:00 99.9 139 18 138/85 (102) 93 109/66 (80) 01/24/17 03:00 139 01/24/17 03:00 91 Mechanical Ventilator 55 01/24/17 03:00 55 01/24/17 03:00 139 138/85 (102) 109/66 (80) 01/24/17 01:01 137 01/24/17 01:01 137 01/24/17 00:53 92 55 01/23/17 23:00 91 Mechanical Ventilator 55 01/23/17 23:00 134 01/23/17 23:00 134 152/84 (106) 136/82 (100) 01/23/17 23:00 55 01/23/17 23:00 100.1 134 18 154/86 (108) 91 132/81 (98) 01/23/17 21:46 92 55 01/23/17 20:00 98.7 133 18 157/87 (110) 93 01/23/17 19:31 133 154/85 01/23/17 19:30 133 01/23/17 19:00 93 Mechanical Ventilator 55 01/23/17 19:00 55 01/23/17 19:00 133 01/23/17 19:00 133 -: 01/24/17 0356 01/24/17 0356 Physical Exam General Appearance: Obese Appearance Remarks Intubated and sedated. Neck Neck Exam: Neck Supple Pulmonary Resp Exam: Rhonchi, Decreased Bases, Diminished Breath Sounds, Poor Inspiratory Effort Cardiology CV Exam: Arrhythmia Gastrointestinal/Abdomen GI Exam: Soft, Non-Tender, Bowel Sounds Present, Distended Extremeties Extremities Exam: Moderate Edema, Pitting Edema, Dependent Edema Neurologic Neuro Exam: Sedated Assessment/Plan Problem List: (1) Acute renal failure ICD Codes: N17.9 - Acute kidney failure, unspecified (2) CHF (congestive heart failure) ICD Codes: I50.9 - Heart failure, unspecified Plan: Getting fluid off with HD (3) Respiratory failure ICD Codes: J96.90 - Respiratory failure, unspecified, unspecified whether with hypoxia or hypercapnia (4) Atrial fibrillation with RVR ICD Codes: I48.91 - Unspecified atrial fibrillation Status: Acute Plan: RVR on Milrinone Plan Patient has ASHLYN and most likely has ATN due to Hypotension. BP is still low. Urine out put is also low. HD now,a nd remove more fluid. Given IV Albumin. Has tachycardia. To get MRI of the heart , possibly today. HD as needed, D/W the at bed side. Kalen Nicole MD Jan 24, 2017 17:37
[2017-01-24] MEDS: GENTAMICIN SULFATE (DIALYSIS USE ONLY) 20 MG/2 ML VIAL IV PRN (18:00)
[2017-01-24] MEDS: HEPARIN SODIUM - IV 10,000 UNITS/10 ML VIAL PRN (18:00)
[2017-01-24] MEDS: SODIUM CHLOR 0.9% 1000 ML INJ 1,000 ML OTHER PRN (18:00)
[2017-01-24] MEDS: MIDAZOLAM 100 MG/100 ML INJ 100 ML IV PRN (22:47)
[2017-01-24 23:30] LABS: APTT (PATIENT) 74.5 SEC (24.3-30.1)
[2017-01-25] VITALS (12 sets, daily range): BP systolic 108–119; BP diastolic 41–78; PULSE 96–132; RESP 18; TEMP 99.3–99.9; O2SAT 93–100
[2017-01-25] MEDS: LACTULOSE SYRUP 20 GM/30 ML CUP PO SCH ×3 (01:05→12:00)
[2017-01-25] MEDS: METOCLOPRAMIDE HCL 10 MG/2 ML VIAL IV PUSH SCH ×3 (01:05→15:20)
[2017-01-25] MEDS: PIPERACIL-TAZO 2.25 GM PREMIX 50 ML IV SCH ×2 (01:06→08:17)
[2017-01-25] MEDS: DEXMEDETOMIDINE INJ 200 MCG in SODIUM CHLORIDE 0.9% INJ 50 ML IV PRN ×2 (01:52→14:03)
[2017-01-25] MEDS: fentaNYL DRIP 250 ML IV PRN (03:41)
[2017-01-25] MEDS: INSULIN NovoLIN REGULAR SUPPLEMENTAL SCALE SQ SCH ×2 (04:00)
[2017-01-25] MEDS: RESP: LEVALBUTEROL HYDROCHLORIDE 1.25 MG/3 ML NEB (SCH) NEB ×3 (04:16→16:13)
[2017-01-25 04:59] LABS: AUTOMATED NEUTROPHIL # 8.4 TH/MM3 (1.8-7.7); BASOPHIL % 0.4 % (0.0-2.0); EOSINOPHIL # 0.4 TH/MM3 (0-0.4); EOSINOPHIL % 3.3 % (0.0-4.0); HEMATOCRIT 35.9 % (39.0-51.0); LYMPH % 8.6 % (9.0-44.0); MEAN CELL VOLUME 80.1 FL (80.0-100.0); MEAN CORPUSCULAR HGB CONC 32.4 % (32.0-36.0); MONO % 12.3 % (0.0-8.0); NEUT % 75.4 % (16.0-70.0); PLATELET COUNT 76 TH/MM3 (150-450); RED BLOOD COUNT 4.48 MIL/MM3 (4.50-5.90); RED CELL DISTRIBUTION WIDTH 15.9 % (11.6-17.2); WHITE BLOOD COUNT 11.2 TH/MM3 (4.0-11.0)
[2017-01-25 05:06] LABS: HEMO FLAGS AUTO DIFF
[2017-01-25] MEDS: ARTIFICIAL TEARS OPTH SOLN 15 ML BTL EACH EYE SCH ×2 (05:09→14:00)
[2017-01-25] MEDS: AMIODARONE INJ 450 MG in DEXTROSE 5% IN WATE(EXCEL) INJ 241 ML IV SCH ×2 (05:09)
[2017-01-25 05:39] LABS: BICARBONATE 26.8 MEQ/L (21.0-32.0); CALCIUM-PROTEIN CORRECTED 7.5 MG/DL (8.5-10.1); DIGOXIN 2.1 NG/ML (0.8-2.0); MAGNESIUM 2.3 MG/DL (1.5-2.5); POTASSIUM 4.4 MEQ/L (3.5-5.1)
[2017-01-25 05:45] LABS: SCAN/DIFF AUTO DIFF CONFIRMED
[2017-01-25 05:53] LABS: TOTAL BILIRUBIN ADULT 6.7 MG/DL (0.2-1.0)
--- NOTE | 2017-01-25 06:46 | HHI.CCPN ---
Subjective Remarks/Hospital Course 51-year-old male with a history of hypertension, presents for evaluation of ongoing and worsening symptoms of shortness of breath 1 week duration associated with chest pressure. Patient states, around 3 AM he was having significant difficulty breathing and decided to come to the ED. This has been an ongoing problem for which patient was supposed to get 2-D echo evaluation as an outpatient. While in emergency department, patient was found to be in A. fib. He denies any previous history of atrial fibrillation, this was also asymptomatic without palpitations or chest pain. CTA was negative for PE and chest x-ray did not reveal any pulmonary congestion. Patient had minimally elevated cardiac enzyme and a mildly elevated BNP of 233. He was started on Cardizem drip for rate control of atrial fibrillation and was admitted to CICU. 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 01/20: Seen and examined initially around 09:30am. Patient with severe dyspnea, agitation, anxiety. In talking with the patient and his , he has a history that over the last approximately 1-2 years she's felt progressively short of breath and can no longer do the activities that he used to be able to do. He can only walk approximately 50 feet without getting winded. He denies any chest pain. He does say that he was diagnosed with sleep apnea approximately a year ago was placed on a BiPAP machine and this did in fact help some of his dyspnea, but he still had significant fatigue with walking even short distances. He and his both note that approximately back in August he had a flulike illness with significant muscle aches, malaise, headache. More recently , over the last 1-2 weeks he has had rapidly progressive shortness of breath, dyspnea on exertion, orthopnea, paroxysmal nocturnal dyspnea. This is presented also in the form of worsening anxiety is becoming very anxious about not being able to catch his breath. He presented to the emergency department yesterday with these complaints and was found to be in new onset atrial fibrillation and mildly hypoxemic. He was given 1 dose of diuretic. Overnight he was started on a diltiazem drip and became severely hypotensive with this. 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 He has been followed with quarterly LFTs which have always been in the mid 70s range per her. Otherwise he has not had any significant past medical history. He has a grandfather that of an PR in his 70s, and a grandmother that of a stroke in her 70s, but no other family history of cardiovascular disease. He has never smoked. He is a very rare drinker, and his confirms this that it is rare that he has any alcohol. He denies any illicit drug use. Review systems is negative unless previous stated. On my initial evaluation, the patient is restless, RASS +1, oriented but confused, CAM +. His extremities are almost mottled. He has severely delayed cap refill. His extremities are cool, very poorly perfused appearing. He has grossly elevated JVD above the level of mandible. I performed a bedside critical care ultrasound which demonstrated what appears to be severely reduced global LV function, very dilated IVC, no pericardial effusion. His troponins are only mildly elevated at 0.08 and this does not appear to be acute coronary syndrome. Highest on my differential at this point would be a new acute onset cardiomyopathy, likely nonischemic given his history. I immediately started the patient on dobutamine IV. I also martin a lactate which resulted at 7.4. I martin a ScVO2 which was 40%, suggestive of severe cardiogenic shock. I attempted arterial line placement, but the patient was too confused and the radial artery too poorly perfused for successful cannulation. At this point, the patient also had not made any urine throughout the day and was refusing raymundo catheter placement. Given his worsening shock and clinical decompensation, after discussion with his , decision was made to intubate the patient (see separate procedure note for details). After intubating the patient, I placed femoral arterial and central lines. He was then transferred to the CVICU where we placed PA catheter. The patient was given one attempt at forced diuresis with Bumex 4mg iv, diamox 500mg iv, diuril 500mg iv which did not produce any significant urine. Nephrology was emergently consulted and I placed emergent dialysis catheter. Starting PA numbers: RAP 17, PAP 38/23 (30), PCWP 23. CI 2.2, svo2 65% which has improved from prior 40%. Patient after being intubated was also severely hypoxemic with spo2 85% on 100% fio2. CXR demonstrates severe bilateral airspace disease consistent with severe pulmonary edema. I again discussed his care with Dr. Browne and we both agree that for his afib and rate control, digoxin (carefully dosed given renal dysfunction) would be the most appropriate therapy. We started with 0.5mg iv x 1 with a plan for a total of up to 1.25mg iv dosed in small doses as a load, and no maintenance therapy, with serial dig levels. 01/21: Patient remains on multiple pressors this a.m..PCWP 26, CI 4.2, PAP 44/ 26. Digoxin level I.5. Plans for dialysis today. Continued monitoring of elevated LFTs secondary to shock liver. 01/22: Afebrile. Overnight the patient developed A. fib RVR, heart rate 180s , required cardioversion 3 attempts, and was placed on amiodarone infusion. Amiodarone has been discontinued in the setting of elevated LFTs , though they are decreasing. The patient is noted to be thrombocytopenic with a platelet count today of 85, which is half of initial platelet count 3 days ago. This is most likely secondary to concomitant issues of shock liver and intrinsic hepatic disease of which the patient was being followed previously for suspected ZHANG. The patient was placed on a heparin infusion for A. fib .A Heparin platelet antibody test has been obtained this a.m.. The patient was unable to have MRI obtained yesterday secondary to hemodynamic instability. Vasopressors have been decreased over the last 24 hours. Plan for MRI this a.m. to rule out myocarditis. Blood and sputum cultures obtained this a.m. to rule out infectious process. Patient was noted to have possible UTI presumed by urine analysis, the patient has been prophylactically placed on Zosyn for empiric coverage. The patient underwent hemodialysis yesterday with 4 L removed. 01/23: Afebrile. Decreasing vasopressor requirements overnight. Remains in atrial fibrillation with RVR. Amiodarone initiated as other medications including beta gayle, calcium channel blockers and digoxin do not appear to be controlling heart rate with the present time. 01/24: Tmax 99.5. Currently 99.9. Patient appears to be in atrial flutter at the present time. Discuss with Dr. Browne will attempt cardioversion and 50 J. MRI of heart after hemodialysis. Will remove [place] Ad[place] catheter and replace post procedure. Noted congestive gallbladder. Will need medicine scan at some point. HIT weakly positive. Subjective: 01/25: Plan for MRI cardiac and HIDA scan today. -6 L with hemodialysis yesterday. 350 cc urine output overnight. One bowel movement. Objective Vital Signs Date Time Temp Pulse Resp B/P (MAP) Pulse Ox O2 Delivery O2 Flow Rate FiO2 01/25/17 05:09 131 125/78 01/25/17 04:16 93 70 01/25/17 03:26 Mechanical Ventilator 01/25/17 03:26 99.3 18 Intake and Output 01/25/17 01/25/17 01/25/17 07:59 15:59 23:59 Intake Total 918 ml Output Total 850 ml Balance 68 ml Result Diagram: 01/25/17 0428 01/25/17 0428 Other Results Microbiology Date/Time Source Procedure Growth Status 01/22/17 08:21 Blood Peripheral Aerobic Blood Culture - Preliminary NO GROWTH IN 2 DAYS Resulted 01/22/17 08:21 Blood Peripheral Anaerobic Blood Culture - Preliminary NO GROWTH IN 2 DAYS Resulted 01/22/17 08:00 Sputum Expectorated Sputum Gram Stain - Final Complete 01/22/17 08:00 Sputum Expectorated Sputum Sputum Culture - Final HEAVY GROWTH NORMAL RESPIRATORY MARCUS Complete 01/23/17 17:21 Urine Catheterized Urine Urine Culture - Preliminary No growth. Resulted Imaging Last Impressions Chest X-Ray 01/24/17 0600 Signed Impressions: Service Date/Time: Tuesday, January 24, 2017 03:40 - CONCLUSION: 1. Increased left basilar opacity likely representing small pleural effusion with associated volume loss and/or consolidation. 2. Stable patchy airspace opacity in the right lung. Deondre Potts MD Abdomen Ultrasound 01/23/17 0000 Signed Impressions: Service Date/Time: Monday, January 23, 2017 09:12 - CONCLUSION: 1. Limited evaluation secondary to overlying bowel gas 2. Gallbladder wall thickening without stones. Acalculus cholecystitis is not excluded. Radionuclide imaging is recommended for further evaluation if clinically indicated. Sixto López MD Abdomen X-Ray 01/22/17 0400 Signed Impressions: Service Date/Time: Sunday, January 22, 2017 04:16 - CONCLUSION: Normal examination. Rob Gerbre MD CT Angiography 01/19/17 0000 Signed Impressions: Service Date/Time: December 06:36 - CONCLUSION: 1. Negative for pulmonary embolism. Small effusions with ground glass opacity characteristic of mild edema. There is also peribronchial thickening. Arsenio Amaya MD Objective Remarks GENERAL: 51 old male, critically ill currently orotracheally intubated SKIN: Warm and dry. No rash HEAD: Normocephalic. EYES: Pupils are round 2 mm bilaterally and reactive. No scleral icterus. No injection or drainage. NECK: Supple, trachea midline. Right IJ Cordis with [place] catheter and left hemodialysis catheter clean dry and intact CARDIOVASCULAR: tachycardic IR. S1, S2. No S4. Without murmurs, clicks, gallops or rubs ABDOMINAL: Abdomen obese, soft, distended.. Tympanic/Hypoactive bowel sounds. Minimal NG tube secretions low intermittent wall suction. Left arterial line/ central line clean dry and intact without erythema MUSCULOSKELETAL: 2+ peripheral edema in extremities. Dopplerable pulses. NEURO EXAM: RASS-3. Positive gag. Positive corneal reflex. Minimal withdrawals to noxious stimuli pain. Procedures 01/22-obtain cardiac MRI Date of Insertion: Jan 20, 2017 Line: Central Venous Catheter Side: Left Location: Femoral A/P Assessment and Plan Neuro/Psych: Acute toxic metabolic encephalopathy secondary to hypoxia/acute kidney injury rule out elevated ammonia Depression disorder NOS Anxiety Chronic benzodiazepine use - Versed drip at 4 mg an hour and fentanyl infusion at 150 g an hour for ventilator synchrony - Dexmedetomidine at 0.2 mcg/kg per hour - Goal of RASS -2 - Daily sedation vacation when appropriate - Neuro checks per ICU protocol - Holding alprazolam 1 mg at night for depression/anxiety - Holding escitalopram 20 mg a night with current dysrhythmia, possible platelet dysfunction. Resume as clinically indicated - Holding bupropion 150 mg by mouth daily with dysrhythmias. Resume as clinically indicated Respiratory: Acute hypoxic respiratory failure/multifactorial - intubated 01/20 Pulmonary edema Obstructive sleep apnea History of OHS ACV 18/650/ Vsync - vent bundle, HOB at 30 degrees -Levalbuterol 0.63 mg nebulizers every 6 hours with albuterol aerosols every 2 hours when necessary dyspnea - no SBT at this time secondary to hemodynamic instability -01/25 CXR -stable bilateral pulmonary infiltrates. Pulmonary function test 2015 - normal Cardiovascular: Cardiogenic shock Severe dilated cardiomyopathy- EF 10%. Likely acute Elevated Troponin secondary to demand ischemia/Type II NSTEMI Acute Systolic Congestive Heart Failure Exacerbation New-onset Atrial Fibrillation with Rapid Ventricular Response History of hypertension Moderate TR - cardiology following: Dr. Browne Currently is refusing synchronized cardioversion for atrial flutter in this patient. Risks benefits discussed. - 01/20 2d echo -ejection fraction 20%. Moderate LV dilatation. Small pericardial effusion. Pulmonary arterial pressure 3-4 mmHg. Moderate TR. - PAP 42/17 -Cardiac index 3.8. SVR 472. CVP 17 yesterday. [place] catheter currently out for imaging and radiology. Replace when indicated. -01/22- cardioversion x3 attempts. - digoxin given yesterday. Level2.5 today. Recheck in a.m. -Overnight restarted amiodarone drip at 0.5 mg a minute. - Downtrended Troponins 0.27-->0.18 - Milrinone currently at 0.2 mcg/kg/min, vasopressin at 0.04 units/minute and Yung-Synephrine at 40 grams per minute. Norepinephrine drip and dobutamine drips discontinued overnight - 01/24 MRI- F/U results concern for myocarditis at the [place] catheter pulled -Continue low-dose aspirin 81 mg daily. Will hold if signs of active bleeding persist - Holding losartan 25 mg by mouth daily light of acute kidney injury/ vasopressor requirements Renal: Severe acute kidney injury requiring emergent Renal replacement therapy Acute intravascular volume overload Nonoliguric -- Strict I/Os - Nephrology following, Dr. Nicole - Hemodialysis per nephrology. -6500 cc yesterday - trend renal function and urine output. -350 cc urine output past 24 hours - Urine eosinophils negative. FEN/GI: Shock liver - elevated transaminases Morbid obesity with BMI greater than 40 Constipation Possible GI bleed - Remains NPO while in shock/possible GI bleed- Continue OGT to LIWS - Dietary consultation - Liver ultrasound revealed congested gallbladder. Rule out cholecystitis. - 01/22- F/U KUB - General downward trending LFTs - F/U hepatitis panel,HIV, LUCY -Replace electrolytes as clinically indicated - Consult GI for possible endoscopy when stable. Possibly will need anticoagulation. Heme/ID: Elevated PT/PTT secondary to acute liver failure Elevated ferritin Normocytic anemia Thrombocytopenia UTI? 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 post-viral cardiomyopathy could be a cause of new -onset NICM, but no evidence of active infection. INR currently 1.7. - Currently on piperacillin/tazobactam 2.25 g IV every 8. 0.75 g supplement with hemodialysis. Pertinent cultures 01/22 - blood cultures 2 -no growth 01/22 - sputum - pending 01/20 - UA - no growth -F/U HIT panel- thrombocytopenia most likely secondary to hepatic injury/DIC and weakly positive. LAST pending. Mentality recommend Argatroban drip hepatically dosed. Currently initiated. Endocrine: Hyperglycemia of critical illness -- SSI, medium scale with Novulog, every 4 hours -- TSH 1.98 on admission - Check hemoglobin A1c Prophylaxis: GI Prophylaxis -Pantoprazole 40 mg IV twice a day in light of possible bleeding DVT Prophylaxis -- SCDs -- Heparin infusion (Afib) held in light of possible GI bleeding Lines: - 01/20 left femoral arterial line - 01/20 left femoral triple lumen catheter - 01/20 right IJ 8.5 Fr Cordis introducer sheath - 01/20 right IJ 6 Fr PA Catheter - 01/20 left IJ 14 Fr 20cm VasCath - 01/20 Raymundo Critical care time 35 minutes. D/W . Luba. and daughter. Care plan discussed. All questions answered. Jose Rafael Snyder MD Jan 25, 2017 06:46
--- NOTE | 2017-01-25 07:52 | PD.CARD.PN ---
Subjective Subjective Remarks intubated, mechanically ventilated Objective Vital Signs / I&O Vital Signs Date Time Temp Pulse Resp B/P (MAP) Pulse Ox O2 Delivery O2 Flow Rate FiO2 01/25/17 05:09 131 125/78 01/25/17 04:16 93 70 01/25/17 03:26 95 Mechanical Ventilator 70 01/25/17 03:26 99.3 132 18 112/74 (87) 95 119/78 (92) 01/25/17 03:26 70 01/25/17 03:26 128 01/25/17 03:26 122 112/41 (64) 119/78 (92) 01/25/17 02:15 94 70 01/25/17 02:00 127 123/76 01/24/17 23:31 132 01/24/17 23:31 122 151/88 (109) 155/63 (93) 01/24/17 23:31 99.2 126 18 151/88 (109) 93 155/63 (93) 01/24/17 23:31 65 01/24/17 23:31 93 Mechanical Ventilator 65 01/24/17 23:23 93 70 01/24/17 23:00 126 151/88 01/24/17 22:48 129 140/93 01/24/17 22:34 91 55 01/24/17 22:00 115 171/98 01/24/17 21:38 116 110/74 01/24/17 20:15 91 55 01/24/17 19:32 99.6 122 18 182/99 (126) 92 169/91 (117) 01/24/17 19:32 92 Mechanical Ventilator 55 01/24/17 19:32 55 01/24/17 19:32 122 182/99 (126) 169/91 (117) 01/24/17 19:00 122 01/24/17 19:00 122 169/91 01/24/17 19:00 122 169/91 01/24/17 16:00 95 Mechanical Ventilator 55 01/24/17 16:00 142 114/68 (83) 114/68 (83) 01/24/17 16:00 100.4 142 18 118/71 (87) 93 97/59 (72) 01/24/17 16:00 55 01/24/17 16:00 141 01/24/17 15:18 95 55 01/24/17 12:51 93 55 01/24/17 12:00 101.4 142 18 116/72 (87) 93 116/72 (87) 01/24/17 12:00 142 116/72 (87) 97/59 (72) 01/24/17 11:32 128 01/24/17 11:15 142 105/66 01/24/17 11:15 142 105/66 01/24/17 11:00 93 Mechanical Ventilator 55 01/24/17 11:00 55 01/24/17 07:57 93 55 I/O 01/24/17 01/24/17 01/24/17 01/25/17 01/25/17 01/25/17 06:59 14:59 22:59 06:59 14:59 22:59 Intake Total 924 ml 918 ml Output Total 850 ml 6000 ml 850 ml Balance 74 ml -6000 ml 68 ml Intake Oral 0 ml IV Total 924 ml 918 ml Output Urine Total 450 ml 350 ml Gastric Drainage Total 400 ml 500 ml Hemodialysis 6000 ml # Bowel Movements 0 1 Physical Exam GENERAL: Well-nourished, well-developed patient in no apparent distress. NECK: No JVD. No carotid bruit. CARDIOVASCULAR: tachycardic IR IR . S1/S2 no murmur, rub, or gallop. RESPIRATORY: No accessory muscle use. rhonchi to auscultation. Breath sounds equal bilaterally. GASTROINTESTINAL: Abdomen soft, non-tender, nondistended. MUSCULOSKELETAL: +2 edema. Laboratory Laboratory Tests Test 01/24/17 08:15 01/24/17 09:00 01/24/17 22:45 01/25/17 04:28 Total Bilirubin 6.5 MG/DL 6.7 MG/DL Direct Bilirubin 4.8 MG/DL Indirect Bilirubin 1.7 MG/DL Prothrombin Time 15.6 SEC Prothromb Time International Ratio 1.4 RATIO Activated Partial Thromboplast Time 31.0 SEC 74.5 SEC Fibrinogen 449 mg/dL White Blood Count 11.2 TH/MM3 Red Blood Count 4.48 MIL/MM3 Hemoglobin 11.6 GM/DL Hematocrit 35.9 % Mean Corpuscular Volume 80.1 FL Mean Corpuscular Hemoglobin 26.0 PG Mean Corpuscular Hemoglobin Concent 32.4 % Red Cell Distribution Width 15.9 % Platelet Count 76 TH/MM3 Mean Platelet Volume 8.1 FL Neutrophils (%) (Auto) 75.4 % Lymphocytes (%) (Auto) 8.6 % Monocytes (%) (Auto) 12.3 % Eosinophils (%) (Auto) 3.3 % Basophils (%) (Auto) 0.4 % Neutrophils # (Auto) 8.4 TH/MM3 Lymphocytes # (Auto) 1.0 TH/MM3 Monocytes # (Auto) 1.4 TH/MM3 Eosinophils # (Auto) 0.4 TH/MM3 Basophils # (Auto) 0.0 TH/MM3 CBC Comment AUTO DIFF Differential Comment AUTO DIFF CONFIRMED Blood Urea Nitrogen 62 MG/DL Creatinine 7.52 MG/DL Random Glucose 103 MG/DL Total Protein 5.7 GM/DL Albumin 3.1 GM/DL Calcium Level 6.8 MG/DL Phosphorus Level 4.4 MG/DL Magnesium Level 2.3 MG/DL Alkaline Phosphatase 83 U/L Aspartate Amino Transf (AST/SGOT) 286 U/L Alanine Aminotransferase (ALT/SGPT) 1013 U/L Sodium Level 139 MEQ/L Potassium Level 4.4 MEQ/L Chloride Level 101 MEQ/L Carbon Dioxide Level 26.8 MEQ/L Anion Gap 11 MEQ/L Estimat Glomerular Filtration Rate 8 ML/MIN Protein Corrected Calcium 7.5 MG/DL Tumor Marker Alpha Fetoprotein 3.7 NG/ML Digoxin Level 2.1 NG/ML Assessment and Plan Problem List: (1) Elevated troponin ICD Codes: R74.8 - Abnormal levels of other serum enzymes Status: Acute (2) Atrial fibrillation with RVR ICD Codes: I48.91 - Unspecified atrial fibrillation Status: Acute (3) Essential hypertension ICD Codes: I10 - Essential (primary) hypertension (4) Acute renal failure ICD Codes: N17.9 - Acute kidney failure, unspecified (5) CHF (congestive heart failure) ICD Codes: I50.9 - Heart failure, unspecified (6) Respiratory failure ICD Codes: J96.90 - Respiratory failure, unspecified, unspecified whether with hypoxia or hypercapnia Assessment and Plan A-fib RVR - on amiodarone gtt with no effect. ARF on dialysis no digoxin, CCB tried and caused hypotension. He is currently hypotensive and BB is not an option, DCC tried times three unsuccessful. Further recommendation per Dr. Browne sever cardiomyopathy - unable to add chava-I or bb Mina Garrison Jan 25, 2017 07:52
[2017-01-25] MEDS: VASOPRESSIN INJ 40 UNITS in DEXTROSE 5% IN WATER 100ML INJ 98 ML IV SCH ×2 (07:55)
[2017-01-25] MEDS: CHLORHEXIDINE 0.12% (ORAL KIT) 15 ML CUP MT SCH (08:00)
[2017-01-25] MEDS: PANTOPRAZOLE SODIUM 40 MG VIAL IV PUSH SCH (08:17)
[2017-01-25] MEDS: SENNOSIDES SYRUP 8.8 MG/5 ML CUP NG SCH (08:17)
[2017-01-25] MEDS: DOCUSATE SODIUM 100 MG/10 ML UDC NG SCH (08:17)
[2017-01-25] MEDS: SODIUM CHLORIDE 0.9% FLUSH 10 ML FLUSH IV FLUSH SCH (08:18)
[2017-01-25] MEDS: ASPIRIN EC 81 MG TABEC PO SCH (08:18)
[2017-01-25] MEDS: POLYETHYLENE GLYCOL 17 GM PKG NG SCH (08:18)
[2017-01-25 08:19] LABS: APTT (PATIENT) 62.2 SEC (24.3-30.1); PROTHROMBIN TIME - PATIENT 76.7 SEC (9.8-11.6)
[2017-01-25 08:27] LABS: INTERNATIONAL NORMALIZED RATIO 6.4 RATIO
--- NOTE | 2017-01-25 09:51 | PD.ONC.PN ---
Subjective Subjective Remarks Remains in what appears to be a-flutter No bleeding on the argatroban Objective Data Date Time Temp Pulse Resp B/P (MAP) Pulse Ox O2 Delivery O2 Flow Rate FiO2 01/25/17 07:59 95 70 01/25/17 07:55 142 115/86 01/25/17 05:09 131 125/78 01/25/17 04:16 93 70 01/25/17 03:26 95 Mechanical Ventilator 70 01/25/17 03:26 99.3 132 18 112/74 (87) 95 119/78 (92) 01/25/17 03:26 70 01/25/17 03:26 128 01/25/17 03:26 122 112/41 (64) 119/78 (92) 01/25/17 02:15 94 70 01/25/17 02:00 127 123/76 01/24/17 23:31 132 01/24/17 23:31 122 151/88 (109) 155/63 (93) 01/24/17 23:31 99.2 126 18 151/88 (109) 93 155/63 (93) 01/24/17 23:31 65 01/24/17 23:31 93 Mechanical Ventilator 65 01/24/17 23:23 93 70 01/24/17 23:00 126 151/88 01/24/17 22:48 129 140/93 01/24/17 22:34 91 55 01/24/17 22:00 115 171/98 01/24/17 21:38 116 110/74 01/24/17 20:15 91 55 01/24/17 19:32 99.6 122 18 182/99 (126) 92 169/91 (117) 01/24/17 19:32 92 Mechanical Ventilator 55 01/24/17 19:32 55 01/24/17 19:32 122 182/99 (126) 169/91 (117) 01/24/17 19:00 122 01/24/17 19:00 122 169/91 01/24/17 19:00 122 169/91 01/24/17 16:00 95 Mechanical Ventilator 55 01/24/17 16:00 142 114/68 (83) 114/68 (83) 01/24/17 16:00 100.4 142 18 118/71 (87) 93 97/59 (72) 01/24/17 16:00 55 01/24/17 16:00 141 01/24/17 15:18 95 55 01/24/17 12:51 93 55 01/24/17 12:00 101.4 142 18 116/72 (87) 93 116/72 (87) 01/24/17 12:00 142 116/72 (87) 97/59 (72) 01/24/17 11:32 128 01/24/17 11:15 142 105/66 01/24/17 11:15 142 105/66 01/24/17 11:00 93 Mechanical Ventilator 55 01/24/17 11:00 55 01/25/17 01/25/17 01/25/17 07:00 15:00 23:00 Intake Total 918 ml Output Total 850 ml Balance 68 ml Result Diagram: 01/25/17 0428 01/25/17 0428 Laboratory Results Laboratory Tests Test 01/24/17 22:45 01/25/17 04:28 01/25/17 07:45 Activated Partial Thromboplast Time 74.5 SEC 62.2 SEC White Blood Count 11.2 TH/MM3 Red Blood Count 4.48 MIL/MM3 Hemoglobin 11.6 GM/DL Hematocrit 35.9 % Mean Corpuscular Volume 80.1 FL Mean Corpuscular Hemoglobin 26.0 PG Mean Corpuscular Hemoglobin Concent 32.4 % Red Cell Distribution Width 15.9 % Platelet Count 76 TH/MM3 Mean Platelet Volume 8.1 FL Neutrophils (%) (Auto) 75.4 % Lymphocytes (%) (Auto) 8.6 % Monocytes (%) (Auto) 12.3 % Eosinophils (%) (Auto) 3.3 % Basophils (%) (Auto) 0.4 % Neutrophils # (Auto) 8.4 TH/MM3 Lymphocytes # (Auto) 1.0 TH/MM3 Monocytes # (Auto) 1.4 TH/MM3 Eosinophils # (Auto) 0.4 TH/MM3 Basophils # (Auto) 0.0 TH/MM3 CBC Comment AUTO DIFF Differential Comment AUTO DIFF CONFIRMED Blood Urea Nitrogen 62 MG/DL Creatinine 7.52 MG/DL Random Glucose 103 MG/DL Total Protein 5.7 GM/DL Albumin 3.1 GM/DL Calcium Level 6.8 MG/DL Phosphorus Level 4.4 MG/DL Magnesium Level 2.3 MG/DL Alkaline Phosphatase 83 U/L Aspartate Amino Transf (AST/SGOT) 286 U/L Alanine Aminotransferase (ALT/SGPT) 1013 U/L Total Bilirubin 6.7 MG/DL Sodium Level 139 MEQ/L Potassium Level 4.4 MEQ/L Chloride Level 101 MEQ/L Carbon Dioxide Level 26.8 MEQ/L Anion Gap 11 MEQ/L Estimat Glomerular Filtration Rate 8 ML/MIN Protein Corrected Calcium 7.5 MG/DL Tumor Marker Alpha Fetoprotein 3.7 NG/ML Digoxin Level 2.1 NG/ML Prothrombin Time 76.7 SEC Prothromb Time International Ratio 6.4 RATIO Fibrinogen 359 mg/dL Culture Results Microbiology Date/Time Source Procedure Growth Status 01/23/17 17:21 Urine Catheterized Urine Urine Culture - Preliminary No growth. Resulted Administered Medications Medications (Trade) Dose Ordered Sig/Jennifer Route PRN Reason Start Time Stop Time Status Last Admin Dose Admin Sodium Chloride (NS Flush) 2 ml BID IV FLUSH 01/19/17 09:00 01/25/17 08:18 Bupropion HCl (Wellbutrin Sr) 150 mg DAILY PO 01/20/17 09:00 Future Hold 01/22/17 09:36 Escitalopram Oxalate (Lexapro) 20 mg HS PO 01/19/17 21:00 Future Hold 01/22/17 20:47 Midazolam HCl 100 ml @ 2 mls/hr Q24H PRN IV SEDATION 01/20/17 13:18 01/24/17 22:47 Norepinephrine Bitartrate 16 mg/ Dextrose 266 ml @ 1.99 mls/hr Q24H PRN IV Blood pressure management 01/20/17 13:21 Future Hold 01/22/17 09:40 Nitroglycerin/ Dextrose 250 ml @ 1.5 mls/hr Q24H PRN IV Hypertension 01/20/17 15:55 01/20/17 16:53 Sodium Chloride 1,000 ml @ 0 mls/hr Q0M PRN OTHER For Prime & Rinse Back 01/20/17 17:22 01/24/17 18:00 Albumin Human (Albumin 25% Inj) 25 gm UNSCH PRN IV WITH DIALYSIS 01/20/17 17:30 01/24/17 16:15 Heparin Sodium (Porcine) (Heparin Inj) UNSCH PRN .XX WITH DIALYSIS 01/20/17 17:30 01/24/17 18:00 Gentamicin Sulfate (Gentamicin (Dialysis) Inj) 20 mg UNSCH PRN IV WITH DIALYSIS 01/20/17 17:30 01/24/17 18:00 Chlorhexidine Gluconate (Peridex 0.12% Liq) 15 ml BID@08,20 MT 01/20/17 20:00 01/24/17 20:00 Calcium Chloride 1 gm/Sodium Chloride 110 ml @ 110 mls/hr UNSCH PRN IV SEE LABEL COMMENTS 01/21/17 00:30 01/23/17 06:15 Milrinone Lactate 20 mg/Sodium Chloride 100 ml @ 13.32 mls/ hr Q7H31M PRN IV IF PATIENT TOLERATES 01/21/17 05:30 01/24/17 22:48 Fentanyl Citrate 250 ml @ 5 mls/hr Q24H PRN IV SEDATION 01/21/17 10:16 01/25/17 03:41 Heparin Sodium/ Dextrose 250 ml @ 17.088 mls/ hr [id number] PRN IV Coagulation management 01/22/17 07:39 Future Hold 01/22/17 08:39 Amiodarone HCl 450 mg/Dextrose 250 ml @ 33.33 mls/ hr Q7H31M IV 01/22/17 18:57 01/25/17 05:09 Docusate Sodium (Colace Liq) 100 mg Q12HR NG 01/23/17 09:00 01/25/17 08:17 Sennosides (Senna Liq) 8.8 mg BID NG 01/23/17 09:00 01/25/17 08:17 Polyethylene Glycol (Miralax) 17 gm BID NG 01/23/17 09:00 01/25/17 08:18 Metoclopramide HCl (Reglan Inj) 5 mg Q8H IV PUSH 01/23/17 08:00 01/25/17 08:17 Pantoprazole Sodium (Protonix Inj) 40 mg Q12H IV PUSH 01/23/17 08:00 01/25/17 08:17 Vasopressin 40 units/Dextrose 100 ml @ 4.5 mls/hr [id number] IV 01/23/17 08:01 01/25/17 07:55 Phenylephrine HCl 160 mg/Dextrose 500 ml @ 7.5 mls/hr Q24H PRN IV Blood pressure management 01/23/17 08:02 01/23/17 10:17 Artificial Tears (Tears Naturale Opth Soln) 1 drop Q8HR EACH EYE 01/23/17 14:00 01/25/17 05:09 Dexmedetomidine HCl 200 mcg/ Sodium Chloride 52 ml @ 7.5 mls/hr Q6H56M PRN IV SEDATION 01/23/17 10:11 01/25/17 01:52 Piperacillin Sod/ Tazobactam Sod 50 ml @ 100 mls/hr Q8H IV 01/23/17 17:00 01/25/17 08:17 Levalbuterol HCl (Xopenex Neb) 1.25 mg Q6HR NEB NEB 01/24/17 05:09 01/25/17 09:14 Lactulose (Lactulose Liq) 30 ml Q6HR PO 01/24/17 12:00 01/25/17 05:08 Argatroban 250 mg/ Sodium Chloride 252.5 ml @ 4.35 mls/hr TITRATE PRN IV aPTT < 50 01/24/17 09:00 01/24/17 11:21 Acetaminophen (Tylenol 650 Mg/ 20 ml Liq) 325 mg Q4H PRN NG fever 01/24/17 12:00 01/24/17 11:53 Objective Remarks GENERAL: Middle-aged male acutely ill sedated and mechanically ventilated SKIN: Warm and dry. HEAD: Normocephalic. EYES: No injection or drainage. NECK: Supple, trachea midline. 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 Lungs clear anteriorly. GASTROINTESTINAL: Abdomen rounded but soft EXTREMITIES: No cyanosis, or edema. MUSCULOSKELETAL: Adequate muscle tone. NEUROLOGICAL: Sedated Assessment/Plan Assessment 51-year-old male with thrombocytopenia and + elina for HIT Plan 1. Elina weakly positive. 50% of the time there is a weakly positive HIT panel in critically ill patients. Continue to wait for the LAST result. 2. He is not having any bleeding on the argatroban. We will discontinue the 81 mg ASA while he is being anticoagulated with argatroban. 3. INR markedly prolonged which will increase bleeding risk. argatroban stopped. Discussed with RN Attending Statement The exam, history, and the medical decision-making described in the above note were completed with the assistance of the mid-level provider. I reviewed and agree with the findings presented. I attest that I had a [id number] encounter with the patient on the same day, and personally performed and documented my assessment and findings in the medical record. tolerating the argatroban without any evidence of bleeding. will stop aspirin and await serotonin release assay. check cbc plat in am. PT 76 related to argatroban and liver failure resulting in decreased factor synthesis. agree with stopping argatroban and will check pt, ptt and fibrinogen in am. He will not be a candidate for Coumadin with liver failure. Venita Veliz Jan 25, 2017 09:51 Vladislav Amezquita MD Jan 25, 2017 18:25
--- NOTE | 2017-01-25 13:21 | RADRPT ---
EXAM DATE/TIME: 01/25/2017 11:24 [facility] COMPARISON: No previous studies available for comparison. INDICATIONS : Acute cholecystitis. Elevated enzymes. DOSE: 4.1 mCi Tc99m Mebrofenin IV MEDICAL HISTORY : Hypertension. Cardiomyopathy. SURGICAL HISTORY : Cardiac cath and vasectomy. ENCOUNTER: Initial ACUITY: 1 week PAIN SCALE: Non-responsive LOCATION: Abdomen. TECHNIQUE: Following the intravenous administration of radiotracer, dynamic sequential images were performed wit h continuous acquisition. FINDINGS: There is significant delay in clearance of radiotracer from the blood pool indicating hepatocellular dysfunction. There is slow progressive excretion into the biliary tree with appearance of activity in the extrahepatic biliary system and bowel within 30 minutes. Activity is seen in the gallbladder wit hin 45 minutes. CONCLUSION: Significant hepatocellular dysfunction. No evidence of acute cholecystitis Deondre Payne MD on January 25, 2017 at 13:18 Board Certified Radiologist. This report was verified electronically.
--- NOTE | 2017-01-25 14:33 | HHI.IDPN ---
Subjective Subjective Remarks Patient is a 51-year-old male, presented to the hospital complaining of one week history of worsening shortness of breath. He was also having some chest pressure. Breath was so severe and he presented to the hospital for further evaluation and treatment. Patient apparently has been having problem with shortness of breath, and being evaluated by his primary care physician. On presentation patient was found to be in atrial fibrillation with RVR. His chest x-ray showed cardiomegaly. He had some elevated CPK, and elevated BNP. Echocardiogram showed decreased LV function with an EF of about 20%. Patient developed significant hypotension and hypoxemia, ended up getting intubated and transferred to the ICU. She has developed significant elevation of his LFTs, as well as his renal failure. He has been started on hemodialysis. He remains on the vent, and currently receiving multiple pressors for his hypotension. He is on dobutamine, norepinephrine, Yung-Synephrine, vasopressin, and Milrinone. Patient also with significant tachycardia, and also on Cordarone drip. He is currently sedated on the vent and currently undergoing hemodialysis at this time my exam. His chest x-ray showing bilateral pulmonary infiltrates. His urinalysis on admission showed pyuria, but urine culture is negative. 2 blood cultures were done yesterday and they are negative so far. Sputum Culture is also pending. His WBC is mildly elevated, and it's down to normal. His sedimentation rate is normal, C-reactive protein elevated. Notes reviewed Temps ok Remain on multiple pressors In atrial flutter HIDA scan negative Had cardiac MRI - pending Had HD today Sedated on the vent BC negative UC negative Sputum normal timbo Antibiotics Zosyn Lines RIJ Cordis LIJ vascath L groin A-line Past Medical History Anxiety Cardiomyopathy GERD Hypertension Obstructive Sleep Apnea Obesity Past Surgical History Cardiac Catheterization in 2007 Appendectomy Vasectomy Allergies: Coded Allergies: No Known Allergies (Unverified , 01/19/17) Objective . Vital Signs Date Time Temp Pulse Resp B/P (MAP) Pulse Ox O2 Delivery O2 Flow Rate FiO2 01/25/17 13:29 96 70 01/25/17 12:00 122 119/64 (82) 01/25/17 12:00 92 Mechanical Ventilator 70 01/25/17 12:00 70 01/25/17 12:00 96 01/25/17 11:51 96 18 119/64 (82) 95 01/25/17 09:50 100 100 01/25/17 08:00 95 Mechanical Ventilator 70 01/25/17 08:00 99.9 124 18 108/72 (84) 95 116/74 (88) 01/25/17 08:00 122 108/72 (84) 108/74 (85) 01/25/17 08:00 70 01/25/17 08:00 124 01/25/17 07:59 95 70 01/25/17 07:55 142 115/86 01/25/17 05:09 131 125/78 01/25/17 04:16 93 70 01/25/17 03:26 95 Mechanical Ventilator 70 01/25/17 03:26 99.3 132 18 112/74 (87) 95 119/78 (92) 01/25/17 03:26 70 01/25/17 03:26 128 01/25/17 03:26 122 112/41 (64) 119/78 (92) 01/25/17 02:15 94 70 01/25/17 02:00 127 123/76 01/24/17 23:31 132 01/24/17 23:31 122 151/88 (109) 155/63 (93) 01/24/17 23:31 99.2 126 18 151/88 (109) 93 155/63 (93) 01/24/17 23:31 65 01/24/17 23:31 93 Mechanical Ventilator 65 01/24/17 23:23 93 70 01/24/17 23:00 126 151/88 01/24/17 22:48 129 140/93 01/24/17 22:34 91 55 01/24/17 22:00 115 171/98 01/24/17 21:38 116 110/74 01/24/17 20:15 91 55 01/24/17 19:32 99.6 122 18 182/99 (126) 92 169/91 (117) 01/24/17 19:32 92 Mechanical Ventilator 55 01/24/17 19:32 55 01/24/17 19:32 122 182/99 (126) 169/91 (117) 01/24/17 19:00 122 01/24/17 19:00 122 169/91 01/24/17 19:00 122 169/91 8/29/17 16:00 95 Mechanical Ventilator 55 01/24/17 16:00 142 114/68 (83) 114/68 (83) 01/24/17 16:00 100.4 142 18 118/71 (87) 93 97/59 (72) 01/24/17 16:00 55 01/24/17 16:00 141 01/24/17 15:18 95 55 . Laboratory Tests Test 01/23/17 18:40 01/24/17 03:56 01/25/17 04:28 Hemoglobin 11.6 GM/DL 11.9 GM/DL 11.6 GM/DL Hematocrit 35.8 % 37.2 % 35.9 % White Blood Count 10.0 TH/MM3 11.2 TH/MM3 Red Blood Count 4.60 MIL/MM3 4.48 MIL/MM3 Mean Corpuscular Volume 80.8 FL 80.1 FL Mean Corpuscular Hemoglobin 25.9 PG 26.0 PG Mean Corpuscular Hemoglobin Concent 32.0 % 32.4 % Red Cell Distribution Width 16.1 % 15.9 % Platelet Count 84 TH/MM3 76 TH/MM3 Mean Platelet Volume 7.7 FL 8.1 FL Neutrophils (%) (Auto) 73.5 % 75.4 % Lymphocytes (%) (Auto) 10.4 % 8.6 % Monocytes (%) (Auto) 12.2 % 12.3 % Eosinophils (%) (Auto) 3.5 % 3.3 % Basophils (%) (Auto) 0.4 % 0.4 % Neutrophils # (Auto) 7.4 TH/MM3 8.4 TH/MM3 Lymphocytes # (Auto) 1.0 TH/MM3 1.0 TH/MM3 Monocytes # (Auto) 1.2 TH/MM3 1.4 TH/MM3 Eosinophils # (Auto) 0.4 TH/MM3 0.4 TH/MM3 Basophils # (Auto) 0.0 TH/MM3 0.0 TH/MM3 CBC Comment AUTO DIFF AUTO DIFF Differential Total Cells Counted 100 Neutrophils % (Manual) 64 % Band Neutrophils % 10 % Lymphocytes % 18 % Monocytes % 4 % Eosinophils % 2 % Neutrophils # (Manual) 7.6 TH/MM3 Myelocytes 2 % Differential Comment FINAL DIFF MANUAL AUTO DIFF CONFIRMED Atypical Lymphocytes % Platelet Estimate LOW Platelet Morphology Comment NORMAL Red Cell Morphology Comment NORMAL Laboratory Tests Test 01/23/17 18:40 01/24/17 03:56 01/24/17 08:15 01/25/17 04:28 Blood Urea Nitrogen 58 MG/DL 62 MG/DL Creatinine 7.36 MG/DL 7.52 MG/DL Random Glucose 90 MG/DL 103 MG/DL Total Protein 5.7 GM/DL 5.7 GM/DL Albumin 3.1 GM/DL 3.1 GM/DL Calcium Level 7.4 MG/DL 6.8 MG/DL Phosphorus Level 3.5 MG/DL 4.4 MG/DL Magnesium Level 2.2 MG/DL 2.3 MG/DL Alkaline Phosphatase 73 U/L 83 U/L Aspartate Amino Transf (AST/SGOT) 491 U/L 286 U/L Alanine Aminotransferase (ALT/SGPT) 1700 U/L 1013 U/L Total Bilirubin 6.6 MG/DL 6.5 MG/DL 6.7 MG/DL Sodium Level 139 MEQ/L 139 MEQ/L Potassium Level 4.4 MEQ/L 4.4 MEQ/L Chloride Level 101 MEQ/L 101 MEQ/L Carbon Dioxide Level 27.8 MEQ/L 26.8 MEQ/L Anion Gap 10 MEQ/L 11 MEQ/L Estimat Glomerular Filtration Rate 8 ML/MIN 8 ML/MIN Protein Corrected Calcium 8.2 MG/DL 7.5 MG/DL Direct Bilirubin 4.8 MG/DL Indirect Bilirubin 1.7 MG/DL Tumor Marker Alpha Fetoprotein 3.7 NG/ML Microbiology Date/Time Source Procedure Growth Status 01/23/17 17:21 Urine Catheterized Urine Urine Culture - Final NO GROWTH IN 48 HOURS. Complete Imaging Hepatobiliary Scan Nuclear Medicine 01/25/17 0000 Signed Impressions: Service Date/Time: Wednesday, January 25, 2017 11:24 - CONCLUSION: Significant hepatocellular dysfunction. No evidence of acute cholecystitis Deodnre Payne MD Chest X-Ray 01/24/17 0600 Signed Impressions: Service Date/Time: Tuesday, January 24, 2017 03:40 - CONCLUSION: 1. Increased left basilar opacity likely representing small pleural effusion with associated volume loss and/or consolidation. 2. Stable patchy airspace opacity in the right lung. Deondre Potts MD Abdomen Ultrasound 01/23/17 0000 Signed Impressions: Service Date/Time: Monday, January 23, 2017 09:12 - CONCLUSION: 1. Limited evaluation secondary to overlying bowel gas 2. Gallbladder wall thickening without stones. Acalculus cholecystitis is not excluded. Radionuclide imaging is recommended for further evaluation if clinically indicated. Sixto López MD Abdomen X-Ray 01/22/17 0400 Signed Impressions: Service Date/Time: Sunday, January 22, 2017 04:16 - CONCLUSION: Normal examination. Rob Gerber MD CT Angiography 01/19/17 0000 Signed Impressions: Service Date/Time: December 06:36 - CONCLUSION: 1. Negative for pulmonary embolism. Small effusions with ground glass opacity characteristic of mild edema. There is also peribronchial thickening. Arsenio Amaya MD Physical Exam GENERAL: sedated on the vent, not in respiratory distress. SKIN: Cool and dry, not mottled. No generalized rash, no ecchymoses and no evidence of embolic lesions. HEAD: Atraumatic. Normocephalic. No temporal wasting, or tenderness. EYES: Manning conjunctiva. No petechia or hemorrhage. Pupils equal, pinpoint. Mild scleral icterus. No injection or drainage. EARS, NOSE AND THROAT: Nose without bleeding or purulent nasal discharge. He is orally intubated, has some dry oral mucosa. NECK: Trachea midline. Supple and not tender, no meningeal signs. Multiple lines in place, sites ok CARDIOVASCULAR: Tachycardic, no rub, no murmurs. RESPIRATORY: Clear to auscultation. Breath sounds equal bilaterally. No rales , wheezing or rhonchi ABDOMEN: Soft, nondistended, bowel sounds present and normoactive. No guarding. No reaction to palpation EXTREMITIES: No clubbing, cyanosis, or edema. No joint effusion, has good ROM. Cool feet, not mottled NEUROLOGICAL: Sedated PSYCHIATRIC: Unable to assess LINE: No evidence of infection - has 2 neck lines, and L groin line : Kim in place, urine dark Assessment & Plan Remarks IMPRESSION Cardiogenic shock, with severe cardiomyopathy Sepsis, with fevers - potential for infections: on vent, multiple lines - had (+) UA on admission - abnormal GB on US, has elevated LFT MOSF - resp, renal elevated LFT Respiratory failure Atrial flutter RECOMMENDATION Follow new C/S Continue Zosyn Adjust Abx when C/S available Follow temps Monitor progress Spoke with D/W Marilee Lackey MD Jan 25, 2017 14:33
--- NOTE | 2017-01-25 16:35 | HHI.NPPN ---
Subjective History of Present Illness 51-year-old male with past medical history of hypertension, anxiety who was admitted with worsening shortness of breath. I was called to see the patient because of decreased urine output and increased creatinine. The patient develop ASHLYN, Hypotension, Resp. failure. He was found to have low EF of 20%. Additional Remarks Patient remain on the vent. and still on the pressors, surrounded by his family. Objective Data Data Vital Signs Date Time Temp Pulse Resp B/P (MAP) Pulse Ox O2 Delivery O2 Flow Rate FiO2 01/25/17 16:00 122 119/64 (82) 01/25/17 15:59 95 Mechanical Ventilator 70 01/25/17 15:59 70 01/25/17 15:58 121 01/25/17 15:58 96 18 119/64 (82) 95 01/25/17 13:29 96 70 01/25/17 12:00 122 119/64 (82) 01/25/17 12:00 92 Mechanical Ventilator 70 01/25/17 12:00 70 01/25/17 12:00 96 01/25/17 11:51 96 18 119/64 (82) 95 01/25/17 09:50 100 100 01/25/17 08:00 95 Mechanical Ventilator 70 01/25/17 08:00 99.9 124 18 108/72 (84) 95 116/74 (88) 01/25/17 08:00 122 108/72 (84) 108/74 (85) 01/25/17 08:00 70 01/25/17 08:00 124 01/25/17 07:59 95 70 01/25/17 07:55 142 115/86 01/25/17 05:09 131 125/78 01/25/17 04:16 93 70 01/25/17 03:26 95 Mechanical Ventilator 70 01/25/17 03:26 99.3 132 18 112/74 (87) 95 119/78 (92) 01/25/17 03:26 70 01/25/17 03:26 128 01/25/17 03:26 122 112/41 (64) 119/78 (92) 01/25/17 02:15 94 70 01/25/17 02:00 127 123/76 01/24/17 23:31 132 01/24/17 23:31 122 151/88 (109) 155/63 (93) 01/24/17 23:31 99.2 126 18 151/88 (109) 93 155/63 (93) 01/24/17 23:31 65 01/24/17 23:31 93 Mechanical Ventilator 65 01/24/17 23:23 93 70 01/24/17 23:00 126 151/88 01/24/17 22:48 129 140/93 01/24/17 22:34 91 55 01/24/17 22:00 115 171/98 01/24/17 21:38 116 110/74 01/24/17 20:15 91 55 01/24/17 19:32 99.6 122 18 182/99 (126) 92 169/91 (117) 01/24/17 19:32 92 Mechanical Ventilator 55 01/24/17 19:32 55 01/24/17 19:32 122 182/99 (126) 169/91 (117) 01/24/17 19:00 122 01/24/17 19:00 122 169/91 01/24/17 19:00 122 169/91 -: 01/25/17 0428 01/25/17 0428 Physical Exam General Appearance: Obese Appearance Remarks Intubated and sedated. Neck Neck Exam: Neck Supple Pulmonary Resp Exam: Rhonchi, Decreased Bases, Diminished Breath Sounds, Poor Inspiratory Effort Cardiology CV Exam: Arrhythmia Gastrointestinal/Abdomen GI Exam: Soft, Non-Tender, Bowel Sounds Present, Distended Extremeties Extremities Exam: Moderate Edema, Pitting Edema, Dependent Edema Neurologic Neuro Exam: Sedated Assessment/Plan Problem List: (1) Acute renal failure ICD Codes: N17.9 - Acute kidney failure, unspecified (2) CHF (congestive heart failure) ICD Codes: I50.9 - Heart failure, unspecified Plan: Getting fluid off with HD (3) Respiratory failure ICD Codes: J96.90 - Respiratory failure, unspecified, unspecified whether with hypoxia or hypercapnia (4) Atrial fibrillation with RVR ICD Codes: I48.91 - Unspecified atrial fibrillation Status: Acute Plan: RVR on Milrinone Plan Patient has ASHLYN and most likely has ATN due to Hypotension. BP is still low. Urine out put is also low. HD done yesterday. Urine out put still remain low. MRI of the heart done, results PND. HIDA scan done, results noted. Possible withdrawal today after the MRI result. Palliative care consulted. Kalen Nicole MD Jan 25, 2017 16:35
--- NOTE | 2017-01-25 16:50 | RADRPT ---
EXAM DATE/TIME: 01/25/2017 10:33 INDICATIONS : Possible myocarditis. MEDICAL HISTORY : Hypertension. liver disease SURGICAL HISTORY : Appendectomy. vasectomy ENCOUNTER: Subsequent ACUITY: 1 week PAIN SCORE: Nonresponsive. LOCATION: chest TECHNIQUE: Multiplanar, multisequence images of the heart were acquired using a combination of retrospectively g ated steady-state free precession in multiple short axis planes from the cardiac base to apex as well as in standard long axis planes. FINDINGS: Global hypokinesia. Mild mitral tricuspid regurgitation. No significant pericardial abnormality. No a neurysms. Trace aortic regurgitation. Aortic root appears normal in caliber. The ventricular chambers appear normal in size. No mass or thrombus identified. Evaluation for myocardial enhancement is limi bethany due to lack of intravenous contrast. MYOCARDIAL FUNCTION: There is global hypokinesia with ejection fraction of 20 a 30%. (Normal 50 - 70%) CONCLUSION: 1. Cardiomyopathy undetermined etiology. 2. Lack of intravenous contrast limits evaluation. Bhanu Perry MD on January 25, 2017 at 16:43 Board Certified Radiologist. This report was verified electronically.
--- NOTE | 2017-01-25 17:39 | PD.CONS ---
Consult Service Palliative Care . Consult Requested By Dr. Snyder . Primary Care Physician Joey Mckoy Jr, MD . Reason for Consultation a. To assist with evaluation and management of symptoms including: dyspnea, pain. b. To assist medical decision maker(s) with: better understanding of current medical conditions; weighing benefits/burdens of medical treatment options; making medical treatment decisions. . HPI History of Present Illness Mr. Tobar is a 51 year old male with past medical history of anxiety, cardiomyopathy, GERD, hypertension and sleep apnea. Patient presented to [facility] emergency department on 01/19/17 with worsening shortness of breath, chest pressure without pain in the week prior to presentation. He has long history of shortness of breath dating back to even 2006 per family report. CTA was negative for PE and chest x-ray did not reveal any pulmonary congestion. Patient had elevated cardiac enzyme and a mildly elevated BNP of 233. He was started on Cardizem for Atrial Fibrillation. He was admitted to CVICU. He was intubated on 01/20/17. Since admission he developed liver and renal failure. He was started on hemodialysis. Echocardiogram revealed severe cardiomyopathy with EF 10% and mild tricuspid regurgitation. He remains in ICU in cardiogenic shock, liver and renal failure. Infectious disease was consulted. In speaking with Dr. Snyder it appears they have ruled out viral etiology of cardiomyopathy. HIDA scan revealed hepatocellular dysfunction. MRI heart revealed cardiomyopathy undetermined etiology. Palliative care was consulted to assist with further clarification of treatment goals. Family was indicating to staff that they did not want to keep doing this to him as he would not want this. 3:30pm: I met with and 2 children and a step daughter (in consult room) and RESHMA (via phone). is clear about his hospital course, medical problems and overall prognosis. Family is certain patient would not want to continue life prolonging measures. They requested to wait until MRI heart results were back. I reviewed the test results with Dr. Snyder and then with family. They have elected to proceed with compassionate withdrawal of life support REKHA and transition to comfort measures only. 5:30pm: I was asked to speak with parents and siblings and all are in agreement with plan of care and agree this would be in keeping with patient wishes. Questions answered. Dr. Snyder present for a portion of this meeting. . Function/Cognitive Trajectory reports patient has had ongoing trajectory of decline over many years. She reports he was unable to "run the bases" when playing on a softball team dating back to 2006. He always attributed chest pressure to anxiety. His symptoms were getting worse over time. He was unable to catch his breathe when walking short distances. . Review of Systems ROS Limitations: Intubated (ROS per family report and EMR review), Unresponsive Constitutional: COMPLAINS OF: Fatigue Respiratory: COMPLAINS OF: Apneas, Snoring, Shortness of breath Cardiovascular: COMPLAINS OF: Chest pain, Dyspnea on Exertion Hematologic/Lymphatics: COMPLAINS OF: Bruising Psychiatric: COMPLAINS OF: Anxiety Past Family Social History Coded Allergies: No Known Allergies (Unverified , 01/19/17) Past Medical History Anxiety Cardiomyopathy GERD Hypertension Sleep Apnea Cardiomegaly . Past Surgical History Appendectomy. Vasectomy Cardiac cath 2007 . Reported Medications Reported Meds & Active Scripts Active Reported Losartan (Losartan Potassium) 25 Mg Tab 25 Mg PO DAILY Alprazolam 1 Mg Tab 1 Mg PO QHS PRN Escitalopram (Escitalopram Oxalate) 20 Mg Tab 20 Mg PO QHS Bupropion HCl ER 24 HR (Bupropion HCl) 150 Mg Tab 150 Mg PO DAILY . Current Medications Medications (Trade) Dose Ordered Sig/Jennifer Route Start Time Stop Time Status Last Admin (NS Flush) 2 ml UNSCH PRN IV FLUSH 01/19/17 06:45 (NS Flush) 2 ml BID IV FLUSH 01/19/17 09:00 01/25/17 08:18 (Narcan Inj) 0.4 mg UNSCH PRN IV 01/19/17 06:45 (Wellbutrin Sr) 150 mg DAILY PO 01/20/17 09:00 Future Hold 01/22/17 09:36 (Lexapro) 20 mg HS PO 01/19/17 21:00 Future Hold 01/22/17 20:47 Miscellaneous Information Patient in critical care unit? Ass... [id number] .XX 01/20/17 01:15 Midazolam HCl 100 ml @ 2 mls/hr Q24H PRN IV 01/20/17 13:18 01/24/17 22:47 Norepinephrine Bitartrate 16 mg/ Dextrose 266 ml @ 1.99 mls/hr Q24H PRN IV 01/20/17 13:21 Future Hold 01/22/17 09:40 Nitroglycerin/ Dextrose 250 ml @ 1.5 mls/hr Q24H PRN IV 01/20/17 15:55 01/20/17 16:53 Sodium Chloride 1,000 ml @ 0 mls/hr Q0M PRN OTHER 01/20/17 17:22 01/24/17 18:00 Sodium Chloride 1,000 ml @ 200 mls/hr Q5H PRN IV 01/20/17 17:22 Sodium Chloride 1,000 ml @ 0 mls/hr Q0M PRN OTHER 01/20/17 17:22 (Mannitol Inj) 12.5 gm UNSCH PRN IV 01/20/17 17:30 (Albumin 25% Inj) 25 gm UNSCH PRN IV 01/20/17 17:30 01/24/17 16:15 (NS Flush) 5 ml UNSCH PRN IV FLUSH 01/20/17 17:30 (Heparin Inj) UNSCH PRN .XX 01/20/17 17:30 01/24/17 18:00 (Gentamicin (Dialysis) Inj) 20 mg UNSCH PRN IV 01/20/17 17:30 01/24/17 18:00 (Zofran Inj) 4 mg UNSCH PRN IV 01/20/17 17:30 (Catapres) 0.1 mg UNSCH PRN PO 01/20/17 17:30 (Gelfoam 12 Mm/7 Mm Top) 1 foam UNSCH PRN TOP 01/20/17 17:30 (Peridex 0.12% Liq) 15 ml BID@08,20 MT 01/20/17 20:00 01/25/17 08:00 Calcium Chloride 1 gm/Sodium Chloride 110 ml @ 110 mls/hr UNSCH PRN IV 01/21/17 00:30 01/23/17 06:15 Milrinone Lactate 20 mg/Sodium Chloride 100 ml @ 13.32 mls/ hr Q7H31M PRN IV 01/21/17 05:30 01/24/17 22:48 Fentanyl Citrate 250 ml @ 5 mls/hr Q24H PRN IV 01/21/17 10:16 01/25/17 03:41 Heparin Sodium/ Dextrose 250 ml @ 17.088 mls/ hr [id number] PRN IV 01/22/17 07:39 Future Hold 01/22/17 08:39 Amiodarone HCl 450 mg/Dextrose 250 ml @ 33.33 mls/ hr Q7H31M IV 01/22/17 18:57 01/25/17 05:09 (Albuterol Neb) 2.5 mg Q2HR NEB PRN NEB 01/23/17 07:15 (Colace Liq) 100 mg Q12HR NG 01/23/17 09:00 01/25/17 08:17 (Senna Liq) 8.8 mg BID NG 01/23/17 09:00 01/25/17 08:17 (Miralax) 17 gm BID NG 01/23/17 09:00 01/25/17 08:18 (Glycerin Adult Supp) 2 gm BID PRN RECTAL 01/23/17 07:30 (Reglan Inj) 5 mg Q8H IV PUSH 01/23/17 08:00 01/25/17 15:20 (Protonix Inj) 40 mg Q12H IV PUSH 01/23/17 08:00 01/25/17 08:17 Vasopressin 40 units/Dextrose 100 ml @ 4.5 mls/hr [id number] IV 01/23/17 08:01 01/25/17 07:55 Phenylephrine HCl 160 mg/Dextrose 500 ml @ 7.5 mls/hr Q24H PRN IV 01/23/17 08:02 01/23/17 10:17 (Brethine Inj) 1 mg UNSCH PRN SQ 01/23/17 08:15 (Tears Naturale Opth Soln) 1 drop Q8HR EACH EYE 01/23/17 14:00 01/25/17 14:00 Dexmedetomidine HCl 200 mcg/ Sodium Chloride 52 ml @ 7.5 mls/hr Q6H56M PRN IV 01/23/17 10:11 01/25/17 14:03 Piperacillin Sod/ Tazobactam Sod 50 ml @ 100 mls/hr Q8H IV 01/23/17 17:00 01/25/17 08:17 (Xopenex Neb) 1.25 mg Q6HR NEB NEB 01/24/17 05:09 01/25/17 16:13 (Lactulose Liq) 30 ml Q6HR PO 01/24/17 12:00 01/25/17 05:08 Argatroban 250 mg/ Sodium Chloride 252.5 ml @ 4.35 mls/hr TITRATE PRN IV 01/24/17 09:00 01/24/17 11:21 (Tylenol 650 Mg/ 20 ml Liq) 325 mg Q4H PRN NG 01/24/17 12:00 01/24/17 11:53 Family History Father has history of hypertension and recent diagnosis of "terminal cancer." Grandfather that of an CO in his 70s. Grandmother that of a stroke in her 70s, but no other family history of cardiovascular disease. . Substance Use Tobacco: Never smoked. He denies any illicit drug use. Alcohol: Rare alcohol intake. Prescription med abuse: None. Illicits: None. . Psychosocial History . Has adult children and a step daughter. He worked for the [employer]. He is described as the most caring, loved man. Spiritual/Cultural Factors Supported by his local latter-day and their Electronics Instructor Elie has come to pray with and support family. . Living Will: Never completed Health Care Surrogate: Never completed Durable Power of Structures Assembler: Never completed Health Care Surrogate(s): According to [place] statutes, health care proxy decision making falls to patient spouse. . Today's verbally stated goals: Patient is incapacitated. Family/friends goals: , children, siblings and father are all in agreement that the patient would not want "any of this." He did not want to be intubated and he was "talked into it" in case it was reversible. indicates he told her last week he "felt like he was going to " and found his obituary today on his laptop. says he made her promise she wouldn't "do this to him and she has to honor his wish. " . Ethical and Legal Issues According to [place] statutes, health care proxy decision making falls to patient spouse. . Physical Exam Vital Signs Date Time Temp Pulse Resp B/P (MAP) Pulse Ox O2 Delivery O2 Flow Rate FiO2 01/25/17 16:00 122 119/64 (82) 01/25/17 15:59 95 Mechanical Ventilator 70 01/25/17 15:59 70 01/25/17 15:58 121 01/25/17 15:58 96 18 119/64 (82) 95 01/25/17 13:29 96 70 01/25/17 12:00 122 119/64 (82) 01/25/17 12:00 92 Mechanical Ventilator 70 01/25/17 12:00 70 01/25/17 12:00 96 01/25/17 11:51 96 18 119/64 (82) 95 01/25/17 09:50 100 100 01/25/17 08:00 95 Mechanical Ventilator 70 01/25/17 08:00 99.9 124 18 108/72 (84) 95 116/74 (88) 01/25/17 08:00 122 108/72 (84) 108/74 (85) 01/25/17 08:00 70 01/25/17 08:00 124 01/25/17 07:59 95 70 01/25/17 07:55 142 115/86 01/25/17 05:09 131 125/78 01/25/17 04:16 93 70 01/25/17 03:26 95 Mechanical Ventilator 70 01/25/17 03:26 99.3 132 18 112/74 (87) 95 119/78 (92) 01/25/17 03:26 70 01/25/17 03:26 128 01/25/17 03:26 122 112/41 (64) 119/78 (92) 01/25/17 02:15 94 70 01/25/17 02:00 127 123/76 01/24/17 23:31 132 01/24/17 23:31 122 151/88 (109) 155/63 (93) 01/24/17 23:31 99.2 126 18 151/88 (109) 93 155/63 (93) 01/24/17 23:31 65 01/24/17 23:31 93 Mechanical Ventilator 65 01/24/17 23:23 93 70 01/24/17 23:00 126 151/88 01/24/17 22:48 129 140/93 01/24/17 22:34 91 55 01/24/17 22:00 115 171/98 01/24/17 21:38 116 110/74 01/24/17 20:15 91 55 01/24/17 19:32 99.6 122 18 182/99 (126) 92 169/91 (117) 01/24/17 19:32 92 Mechanical Ventilator 55 01/24/17 19:32 55 01/24/17 19:32 122 182/99 (126) 169/91 (117) 01/24/17 19:00 122 01/24/17 19:00 122 169/91 01/24/17 19:00 122 169/91 Exam CONSTITUTIONAL/GENERAL: This is an adequately nourished patient, critically ill patient. SKIN: + jaundice. Ecchymoses on upper extremities. No wounds seen anteriorly. Skin temperature appropriate. Not diaphoretic. HEAD: Atraumatic. Normocephalic. EYES: Eyes closed. ENT: Unable to assess hearing due to condition. NG tube. Throat difficult to visualize due to tubes. NECK: Trachea midline. Right IJ Ernul-Adry catheter and left hemodialysis catheter clean dry and intact CARDIOVASCULAR: Irregular, tachycardic. RESPIRATORY/CHEST: labored respirations on vent. FiO2 70%. GASTROINTESTINAL: Abdomen soft, non-tender, nondistended. No hepato-splenomegaly , or palpable masses. No guarding. Bowel sounds present. GENITOURINARY: Without palpable bladder distension. Kim catheter in place. MUSCULOSKELETAL: Extremities without clubbing, cyanosis, or edema. No joint tenderness or effusion noted. No calf tenderness. No mottling or clubbing. LYMPHATICS: No palpable cervical or supraclavicular adenopathy. NEUROLOGICAL: Awake and alert. Motor and sensory grossly within normal limits. Follows commands. Cognitively sharp. Moves all extremities. PSYCHIATRIC: No obvious anxiety/depression. no apparent hallucinations or other psychotic thought process. Diagnostic Tests Laboratory Laboratory Tests Test 01/22/17 17:58 01/23/17 04:45 01/23/17 05:20 01/23/17 11:20 Hemoglobin 11.3 GM/DL (13.0-17.0) 11.3 GM/DL (13.0-17.0) Hematocrit 34.8 % (39.0-51.0) 34.7 % (39.0-51.0) White Blood Count 8.6 TH/MM3 (4.0-11.0) Red Blood Count 4.28 MIL/MM3 (4.50-5.90) Mean Corpuscular Volume 81.0 FL (80.0-100.0) Mean Corpuscular Hemoglobin 26.4 PG (27.0-34.0) Mean Corpuscular Hemoglobin Concent 32.6 % (32.0-36.0) Red Cell Distribution Width 15.7 % (11.6-17.2) Platelet Count 85 TH/MM3 (150-450) Mean Platelet Volume 8.8 FL (7.0-11.0) Neutrophils (%) (Auto) 78.6 % (16.0-70.0) Lymphocytes (%) (Auto) 9.7 % (9.0-44.0) Monocytes (%) (Auto) 8.4 % (0.0-8.0) Eosinophils (%) (Auto) 2.7 % (0.0-4.0) Basophils (%) (Auto) 0.6 % (0.0-2.0) Neutrophils # (Auto) 6.8 TH/MM3 (1.8-7.7) Lymphocytes # (Auto) 0.8 TH/MM3 (1.0-4.8) Monocytes # (Auto) 0.7 TH/MM3 (0-0.9) Eosinophils # (Auto) 0.2 TH/MM3 (0-0.4) Basophils # (Auto) 0.0 TH/MM3 (0-0.2) CBC Comment DIFF FINAL Differential Comment Prothrombin Time 17.8 SEC (9.8-11.6) Prothromb Time International Ratio 1.6 RATIO Activated Partial Thromboplast Time 31.6 SEC (24.3-30.1) Blood Urea Nitrogen 73 MG/DL (7-18) Creatinine 8.08 MG/DL (0.60-1.30) Random Glucose 115 MG/DL (74-106) Total Protein 4.6 GM/DL (6.4-8.2) Albumin 2.7 GM/DL (3.4-5.0) Calcium Level 7.9 MG/DL (8.5-10.1) Phosphorus Level 3.9 MG/DL (2.5-4.9) Magnesium Level 2.0 MG/DL (1.5-2.5) Alkaline Phosphatase 58 U/L (45-117) Aspartate Amino Transf (AST/SGOT) 899 U/L (15-37) Alanine Aminotransferase (ALT/SGPT) 2320 U/L (12-78) Total Bilirubin 5.6 MG/DL (0.2-1.0) Sodium Level 136 MEQ/L (136-145) Potassium Level 4.0 MEQ/L (3.5-5.1) Chloride Level 101 MEQ/L (98-107) Carbon Dioxide Level 24.1 MEQ/L (21.0-32.0) Anion Gap 11 MEQ/L (5-15) Estimat Glomerular Filtration Rate 7 ML/MIN (>89) Lactic Acid Level 1.5 mmol/L (0.4-2.0) Blood Gas Puncture Site ART LINE Blood Gas Patient Temperature 98.6 Blood Gas HCO3 22 mmol/L (22-26) Blood Gas Base Excess -2.9 mmol/L (-2-2) Blood Gas Oxygen Saturation 95 % (90-100) Arterial Blood pH 7.37 (7.380-7.420) Arterial Blood Partial Pressure CO2 38 mmHg (38-42) Arterial Blood Partial Pressure O2 99 mmHg (61-120) Arterial Blood Oxygen Content 15.3 Vol % (12.0-20.0) Arterial Blood Carboxyhemoglobin 1.8 % (0-4) Arterial Blood Methemoglobin 1.2 % (0-2) Blood Gas Hemoglobin 11.4 G/DL (12.0-16.0) Oxygen Delivery Device VENTILATOR Blood Gas Ventilator Setting AC18/640/8PEEP Blood Gas Inspired Oxygen 70 % Ammonia 19 MCMOL/L (11-32) Test 01/23/17 11:25 01/23/17 17:21 01/23/17 18:40 01/24/17 03:56 Erythrocyte Sedimentation Rate 13 mm/hr (0-15) C-Reactive Protein 17.60 MG/DL (0.00-0.30) Rapid Plasma Reagin NON-REACTIVE (NON-REACTVE) Urine Color YELLOW (YELLW/STRAW) Urine Turbidity HAZY (CLEAR) Urine pH 6.5 (5.0-8.5) Urine Specific Arabi 1.016 (1.002-1.035) Urine Protein 100 mg/dL (NEG-TRACE) Urine Glucose (UA) NEG mg/dL (NEG) Urine Ketones NEG mg/dL (NEG) Urine Occult Blood MOD (NEG) Urine Nitrite NEG (NEG) Urine Bilirubin NEG (NEG) Urine Urobilinogen LESS THAN 2.0 MG/DL (LESS Urine Leukocyte Esterase MOD (NEG) Urine RBC 19 /hpf (0-3) Urine WBC 8 /hpf (0-5) Urine Squamous Epithelial Cells <1 /hpf (0-5) Urine Amorphous Sediment RARE Urine Hyaline Casts 1 /lpf (RARE) Urine Mucus FEW /lpf (OCC) Microscopic Urinalysis Comment CATH-CULTURE IND Hemoglobin 11.6 GM/DL (13.0-17.0) 11.9 GM/DL (13.0-17.0) Hematocrit 35.8 % (39.0-51.0) 37.2 % (39.0-51.0) White Blood Count 10.0 TH/MM3 (4.0-11.0) Red Blood Count 4.60 MIL/MM3 (4.50-5.90) Mean Corpuscular Volume 80.8 FL (80.0-100.0) Mean Corpuscular Hemoglobin 25.9 PG (27.0-34.0) Mean Corpuscular Hemoglobin Concent 32.0 % (32.0-36.0) Red Cell Distribution Width 16.1 % (11.6-17.2) Platelet Count 84 TH/MM3 (150-450) Mean Platelet Volume 7.7 FL (7.0-11.0) Neutrophils (%) (Auto) 73.5 % (16.0-70.0) Lymphocytes (%) (Auto) 10.4 % (9.0-44.0) Monocytes (%) (Auto) 12.2 % (0.0-8.0) Eosinophils (%) (Auto) 3.5 % (0.0-4.0) Basophils (%) (Auto) 0.4 % (0.0-2.0) Neutrophils # (Auto) 7.4 TH/MM3 (1.8-7.7) Lymphocytes # (Auto) 1.0 TH/MM3 (1.0-4.8) Monocytes # (Auto) 1.2 TH/MM3 (0-0.9) Eosinophils # (Auto) 0.4 TH/MM3 (0-0.4) Basophils # (Auto) 0.0 TH/MM3 (0-0.2) CBC Comment AUTO DIFF Differential Total Cells Counted 100 Neutrophils % (Manual) 64 % (16-70) Band Neutrophils % 10 % (0-6) Lymphocytes % 18 % (9-44) Monocytes % 4 % (0-8) Eosinophils % 2 % (0-4) Neutrophils # (Manual) 7.6 TH/MM3 (1.8-7.7) Myelocytes 2 % (0-0) Differential Comment FINAL DIFF MANUAL Atypical Lymphocytes % (0-0) Platelet Estimate LOW (NORMAL) Platelet Morphology Comment NORMAL (NORMAL) Red Cell Morphology Comment NORMAL (NORMAL) Prothrombin Time 16.4 SEC (9.8-11.6) Prothromb Time International Ratio 1.5 RATIO Activated Partial Thromboplast Time 30.6 SEC (24.3-30.1) Blood Urea Nitrogen 58 MG/DL (7-18) Creatinine 7.36 MG/DL (0.60-1.30) Random Glucose 90 MG/DL (74-106) Total Protein 5.7 GM/DL (6.4-8.2) Albumin 3.1 GM/DL (3.4-5.0) Calcium Level 7.4 MG/DL (8.5-10.1) Phosphorus Level 3.5 MG/DL (2.5-4.9) Magnesium Level 2.2 MG/DL (1.5-2.5) Alkaline Phosphatase 73 U/L (45-117) Aspartate Amino Transf (AST/SGOT) 491 U/L (15-37) Alanine Aminotransferase (ALT/SGPT) 1700 U/L (12-78) Total Bilirubin 6.6 MG/DL (0.2-1.0) Sodium Level 139 MEQ/L (136-145) Potassium Level 4.4 MEQ/L (3.5-5.1) Chloride Level 101 MEQ/L (98-107) Carbon Dioxide Level 27.8 MEQ/L (21.0-32.0) Anion Gap 10 MEQ/L (5-15) Estimat Glomerular Filtration Rate 8 ML/MIN (>89) Protein Corrected Calcium 8.2 MG/DL (8.5-10.1) Random Vancomycin Level 13.2 COMMENT Digoxin Level 2.5 NG/ML (0.8-2.0) Test 01/24/17 08:15 01/24/17 09:00 01/24/17 22:45 01/25/17 04:28 Total Bilirubin 6.5 MG/DL (0.2-1.0) 6.7 MG/DL (0.2-1.0) Direct Bilirubin 4.8 MG/DL (0.0-0.2) Indirect Bilirubin 1.7 MG/DL (0.0-0.8) Prothrombin Time 15.6 SEC (9.8-11.6) Prothromb Time International Ratio 1.4 RATIO Activated Partial Thromboplast Time 31.0 SEC (24.3-30.1) 74.5 SEC (24.3-30.1) Fibrinogen 449 mg/dL (227-377) White Blood Count 11.2 TH/MM3 (4.0-11.0) Red Blood Count 4.48 MIL/MM3 (4.50-5.90) Hemoglobin 11.6 GM/DL (13.0-17.0) Hematocrit 35.9 % (39.0-51.0) Mean Corpuscular Volume 80.1 FL (80.0-100.0) Mean Corpuscular Hemoglobin 26.0 PG (27.0-34.0) Mean Corpuscular Hemoglobin Concent 32.4 % (32.0-36.0) Red Cell Distribution Width 15.9 % (11.6-17.2) Platelet Count 76 TH/MM3 (150-450) Mean Platelet Volume 8.1 FL (7.0-11.0) Neutrophils (%) (Auto) 75.4 % (16.0-70.0) Lymphocytes (%) (Auto) 8.6 % (9.0-44.0) Monocytes (%) (Auto) 12.3 % (0.0-8.0) Eosinophils (%) (Auto) 3.3 % (0.0-4.0) Basophils (%) (Auto) 0.4 % (0.0-2.0) Neutrophils # (Auto) 8.4 TH/MM3 (1.8-7.7) Lymphocytes # (Auto) 1.0 TH/MM3 (1.0-4.8) Monocytes # (Auto) 1.4 TH/MM3 (0-0.9) Eosinophils # (Auto) 0.4 TH/MM3 (0-0.4) Basophils # (Auto) 0.0 TH/MM3 (0-0.2) CBC Comment AUTO DIFF Differential Comment AUTO DIFF CONFIRMED Blood Urea Nitrogen 62 MG/DL (7-18) Creatinine 7.52 MG/DL (0.60-1.30) Random Glucose 103 MG/DL (74-106) Total Protein 5.7 GM/DL (6.4-8.2) Albumin 3.1 GM/DL (3.4-5.0) Calcium Level 6.8 MG/DL (8.5-10.1) Phosphorus Level 4.4 MG/DL (2.5-4.9) Magnesium Level 2.3 MG/DL (1.5-2.5) Alkaline Phosphatase 83 U/L (45-117) Aspartate Amino Transf (AST/SGOT) 286 U/L (15-37) Alanine Aminotransferase (ALT/SGPT) 1013 U/L (12-78) Sodium Level 139 MEQ/L (136-145) Potassium Level 4.4 MEQ/L (3.5-5.1) Chloride Level 101 MEQ/L (98-107) Carbon Dioxide Level 26.8 MEQ/L (21.0-32.0) Anion Gap 11 MEQ/L (5-15) Estimat Glomerular Filtration Rate 8 ML/MIN (>89) Protein Corrected Calcium 7.5 MG/DL (8.5-10.1) Tumor Marker Alpha Fetoprotein 3.7 NG/ML (0.5-8.0) Digoxin Level 2.1 NG/ML (0.8-2.0) Test 01/25/17 07:45 Prothrombin Time 76.7 SEC (9.8-11.6) Prothromb Time International Ratio 6.4 RATIO Activated Partial Thromboplast Time 62.2 SEC (24.3-30.1) Fibrinogen 359 mg/dL (227-377) Result Diagram: 01/25/178 01/25/17 0428 Microbiology Microbiology Date/Time Source Procedure Growth Status 01/23/17 17:21 Urine Catheterized Urine Urine Culture - Final NO GROWTH IN 48 HOURS. Complete Imaging Last Impressions Hepatobiliary Scan Nuclear Medicine 01/25/17 0000 Signed Impressions: Service Date/Time: Wednesday, January 25, 2017 11:24 - CONCLUSION: Significant hepatocellular dysfunction. No evidence of acute cholecystitis Deondre Payne MD Cardiac MRI 01/25/17 0000 Signed Impressions: Service Date/Time: Wednesday, January 25, 2017 10:33 - CONCLUSION: 1. Cardiomyopathy undetermined etiology. 2. Lack of intravenous contrast limits evaluation. Bhanu Perry MD Chest X-Ray 01/24/17 0600 Signed Impressions: Service Date/Time: Tuesday, January 24, 2017 03:40 - CONCLUSION: 1. Increased left basilar opacity likely representing small pleural effusion with associated volume loss and/or consolidation. 2. Stable patchy airspace opacity in the right lung. Deondre Potts MD Abdomen Ultrasound 01/23/17 0000 Signed Impressions: Service Date/Time: Monday, January 23, 2017 09:12 - CONCLUSION: 1. Limited evaluation secondary to overlying bowel gas 2. Gallbladder wall thickening without stones. Acalculus cholecystitis is not excluded. Radionuclide imaging is recommended for further evaluation if clinically indicated. Sixto López MD Abdomen X-Ray 01/22/17 0400 Signed Impressions: Service Date/Time: Sunday, January 22, 2017 04:16 - CONCLUSION: Normal examination. Rob Gerber MD CT Angiography 01/19/17 0000 Signed Impressions: Service Date/Time: December 06:36 - CONCLUSION: 1. Negative for pulmonary embolism. Small effusions with ground glass opacity characteristic of mild edema. There is also peribronchial thickening. Arsenio Amaya MD Patient/Family Conference Present at Family Conference: 3:30pm: I met with and 2 children and a step daughter (in consult room) and RESHMA (via phone). Also present Che Ty LCSW. is clear about his hospital course, medical problems and overall prognosis. Family is certain patient would not want to continue life prolonging measures. They requested to wait until MRI heart results were back. I reviewed the test results with Dr. Snyder and then with family. They have elected to proceed with compassionate withdrawal of life support REKHA and transition to comfort measures only. 5:30pm: I was asked to speak with parents and siblings and all are in agreement with plan of care and agree this would be in keeping with patient wishes. Questions answered. Dr. Snyder present for a portion of this meeting. Bereavement services and Children's Grief Services (for 4 year old grandson) information provided to family. Also provided home list. Family is very appreciative of ALL of the care patient has received since admission by all staff. Family Conference Time (mins): 180 Family Conference Location: Bedside, Consult Room, Hallway, Telephone Issues Discussed: * Palliative care role, purpose, approach * Additional medical, psychosocial, and spiritual history * Patients general health, functional status, and cognitive changes in the months leading up to the current hospitalization * Patient/family understanding of the current medical problems * Patient/family understanding of prognosis * Patients goals of care as best understood from advance directives and/or conversations and/or values * Current medical treatment options and benefits/burdens of those options * Likely scenarios comparing ongoing aggressive care with a transition to comfort measures only * Questions answered to the best of my ability * Palliative care contact information provided Assessment and Plan Disease Oriented Problem List: (1) Cardiogenic shock (2) severe cardiomyopathy (3) Thrombocytopenia (4) Liver failure (5) Renal failure (6) Respiratory failure (7) CHF (congestive heart failure) (8) Acute renal failure (9) Paroxysmal atrial fibrillation with rapid ventricular response (10) Essential hypertension (11) Atrial fibrillation with RVR (12) Elevated troponin Symptom Scale: (1) Pain 0-10 Scale: Unable to quantify Comment: On Fentanyl (2) Dyspnea 0-10 Scale: Unable to quantify Comment: On Versed Pertinent Non-Medical Issues Psychosocial: . Has adult children, step daughter. Parents and siblings are alive. Spiritual: Supported by his latter-day. Legal: According to [place] statutes, health care proxy decision making falls to patient spouse. Ethical issues impacting care: No new concerns at this time. . Important Contacts Luba Tobar, : [phone] Prognosis Poor prognosis given multi organ failure including severe cardiomyopathy, respiratory, renal and liver failure. Code Status: No Code Plan * According to [place] statutes, health care proxy decision making falls to patient spouse. * NO CODE. * Family has elected to proceed with withdrawal of life support this evening. Anticipatory guidance provided. Declined hospice support. * Exhibits B & C signed on chart. * Sr[employer] Manager Marketing offered, family has called their solutions sales executive. He arrived prior to withdrawal. * SYMPTOMS: Pain: pain related to severe cardiomyopathy, bedbound status, critical illness and multiorgan failure. On Fentanyl. Orders written for trasnition to comfort. Dyspnea: resp failure on vent. On Versed and high vent support. FiO2 70%. * Palliative care number provided. * Palliative care will continue to follow. . Thank you for the opportunity to participate in the care of Mr. Tobar. Attestation To help prompt me to consider important information that might be impacting today's encounter and assessment, information from prior notes written by myself or my colleagues may have been "brought forward" into today's note. My signature on this note, however, is an attestation that I personally performed the exam, history, and/or decision-making noted today, and, unless otherwise indicated, the interactions with patient, family, and staff as well as the review of records all occurred today. I also attest that the listed assessment and stated plan reflect my best clinical judgment today based on the combination of historical information, prior notes, and today's exam/ interactions. When time spent is documented, it refers only to time spent today by the signer, or if indicated, combined time spent today by collaborating physician/nurse practitioner. Lucy Santana Jan 25, 2017 17:39
[2017-01-25] MEDS ORDERED: HYDROmorphone HCL PF 2 MG/ML VIAL IV ONE ×3 (17:45→18:30)
[2017-01-25] MEDS ORDERED: HYOSCYAMINE 0.5 MG/ML AMP IV ONE (17:45)
[2017-01-25] MEDS ORDERED: LORazepam 2 MG/ML VIAL IV ONE ×2 (17:45→18:15)
[2017-01-25] MEDS ORDERED: ACETAMINOPHEN 650 MG SUPP RECTAL PRN (18:15)
[2017-01-25] MEDS ORDERED: HYDROmorphone HCL PF 2 MG/ML VIAL IV PRN (18:15)
[2017-01-25] MEDS ORDERED: FUROSEMIDE 20 MG/2 ML VIAL IV PRN (18:15)
[2017-01-25] MEDS ORDERED: HYOSCYAMINE 0.5 MG/ML AMP IV PRN (18:15)
[2017-01-25] MEDS ORDERED: HYDROmorphone HCL PF 1 MG/ML VIAL IV PRN ×2 (18:15→18:45)
[2017-01-25] MEDS ORDERED: LORazepam 2 MG/ML VIAL IV PRN ×2 (18:15)
[2017-01-25] MEDS ORDERED: BISACODYL 10 MG SUPP RECTAL PRN (18:15)
[2017-01-25] MEDS ORDERED: HYDROmorphone HCL PF 1 MG/ML VIAL IV ONE (18:30)
[2017-01-26 11:04] LABS: ACLYCARNITINE/FREE CARNITINE 0.3 (0.1-0.8); ACYLCARNITINE 25 nmol/mL (5-30); CARNITINE FREE 74 nmol/mL (25-54)
[2017-01-26 23:54] LABS: UFH SEROTONIN RELEASE RESULT NEGATIVE (NEGATIVE)
[2017-01-27 09:51] LABS: HEREDITARY HEMOCHROM SPECIMEN WB Whole Blood
[2017-01-28 17:50] LABS: MITOCHONDRIAL ABS LESS THAN 20.0 U (<=20.0)
--- NOTE | 2017-02-16 07:06 | HHI.DS ---
Discharge Summary Admission Date Jan 19, 2017 at 06:35 Discharge Date: Jan 25, 2017 Admitting Diagnosis new onset atrial fibrillation with RVR, elevated troponin (1) Paroxysmal atrial fibrillation with rapid ventricular response ICD Code: I48.0 - Paroxysmal atrial fibrillation Diagnosis: Principal Status: Acute (2) Essential hypertension ICD Code: I10 - Essential (primary) hypertension Diagnosis: Principal Status: Acute (3) Elevated troponin ICD Code: R74.8 - Abnormal levels of other serum enzymes Diagnosis: Principal Status: Acute (4) Toxic metabolic encephalopathy ICD Code: G92 - Toxic encephalopathy Diagnosis: Principal Status: Acute (5) severe cardiomyopathy Diagnosis: Principal Status: Acute (6) Acute renal failure ICD Code: N17.9 - Acute kidney failure, unspecified Diagnosis: Principal Status: Acute (7) CHF (congestive heart failure) ICD Code: I50.9 - Heart failure, unspecified Diagnosis: Principal Status: Acute (8) Respiratory failure ICD Code: J96.90 - Respiratory failure, unspecified, unspecified whether with hypoxia or hypercapnia Diagnosis: Principal Status: Acute Procedures 01/22-obtain cardiac MRI Brief History 51-year-old male with a history of hypertension, presented to the ED early this morning for evaluation of ongoing or worsening symptoms of shortness of breath 1 week duration associated with chest pressure without any pain. Patient states, around 3 AM he was having significant difficulty breathing and decided to come to the ED. This has been an ongoing problem for which patient PCP was supposed to order a 2-D echo. While in emergency department, patient was found in A. fib. This appeared to be a new diagnosis for patient and he currently denies any heart palpitation. CTA was negative for PE and chest x- ray did not reveal any pulmonary congestion. Patient had elevated cardiac enzyme and a mildly elevated BNP of 233. He denies any GI bleed. Significant Findings See below Imaging Last Impressions Hepatobiliary Scan Nuclear Medicine 01/25/17 0000 Signed Impressions: Service Date/Time: Wednesday, January 25, 2017 11:24 - CONCLUSION: Significant hepatocellular dysfunction. No evidence of acute cholecystitis Deondre Payne MD Cardiac MRI 01/25/17 0000 Signed Impressions: Service Date/Time: Wednesday, January 25, 2017 10:33 - CONCLUSION: 1. Cardiomyopathy undetermined etiology. 2. Lack of intravenous contrast limits evaluation. Bhanu Perry MD Chest X-Ray 01/24/17 0600 Signed Impressions: Service Date/Time: Tuesday, January 24, 2017 03:40 - CONCLUSION: 1. Increased left basilar opacity likely representing small pleural effusion with associated volume loss and/or consolidation. 2. Stable patchy airspace opacity in the right lung. Deondre Potts MD Abdomen Ultrasound 01/23/17 0000 Signed Impressions: Service Date/Time: Monday, January 23, 2017 09:12 - CONCLUSION: 1. Limited evaluation secondary to overlying bowel gas 2. Gallbladder wall thickening without stones. Acalculus cholecystitis is not excluded. Radionuclide imaging is recommended for further evaluation if clinically indicated. Sixto López MD Abdomen X-Ray 01/22/17 0400 Signed Impressions: Service Date/Time: Sunday, January 22, 2017 04:16 - CONCLUSION: Normal examination. Rob Gerber MD CT Angiography 01/19/17 0000 Signed Impressions: Service Date/Time: December 06:36 - CONCLUSION: 1. Negative for pulmonary embolism. Small effusions with ground glass opacity characteristic of mild edema. There is also peribronchial thickening. Arsenio Amaya MD PE at Discharge GENERAL: 51-year-old male, extubated SKIN: Warm and dry. HEAD: Atraumatic. Normocephalic. EYES: Pupils equal and and fixed ENT: No nasal bleeding or discharge. Mucous membranes pink and moist. NECK: Trachea midline. No JVD. CARDIOVASCULAR: Asystole RESPIRATORY: No respirations GASTROINTESTINAL: Abdomen soft, non-tender, nondistended. No bowel sounds MUSCULOSKELETAL: Extremities without clubbing, cyanosis, or edema. No obvious deformities. NEUROLOGICAL: Unresponsive Transfer Summary Neuro/Psych: Acute toxic metabolic encephalopathy secondary to hypoxia/acute kidney injury rule out elevated ammonia Depression disorder NOS Anxiety Chronic benzodiazepine use - Versed drip at 4 mg an hour and fentanyl infusion at 150 g an hour for ventilator synchrony - Dexmedetomidine at 0.2 mcg/kg per hour - Goal of RASS -2 - Daily sedation vacation when appropriate - Neuro checks per ICU protocol - Holding alprazolam 1 mg at night for depression/anxiety - Holding escitalopram 20 mg a night with current dysrhythmia, possible platelet dysfunction. Resume as clinically indicated - Holding bupropion 150 mg by mouth daily with dysrhythmias. Resume as clinically indicated Respiratory: Acute hypoxic respiratory failure/multifactorial - intubated 01/20 Pulmonary edema Obstructive sleep apnea History of OHS ACV // Vsync - vent bundle, HOB at 30 degrees -Levalbuterol 0.63 mg nebulizers every 6 hours with albuterol aerosols every 2 hours when necessary dyspnea - no SBT at this time secondary to hemodynamic instability -01/25 CXR -stable bilateral pulmonary infiltrates. Pulmonary function test 2015 - normal Cardiovascular: Cardiogenic shock Severe dilated cardiomyopathy- EF 10%. Likely acute Elevated Troponin secondary to demand ischemia/Type II NSTEMI Acute Systolic Congestive Heart Failure Exacerbation New-onset Atrial Fibrillation with Rapid Ventricular Response History of hypertension Moderate TR - cardiology following: Dr. Browne Currently is refusing synchronized cardioversion for atrial flutter in this patient. Risks benefits discussed. - 01/20 2d echo -ejection fraction 20%. Moderate LV dilatation. Small pericardial effusion. Pulmonary arterial pressure 3-4 mmHg. Moderate TR. - PAP 42/17 -Cardiac index 3.8. SVR 472. CVP 17 yesterday. Otis-Adry catheter currently out for imaging and radiology. Replace when indicated. -01/22- cardioversion x3 attempts. - digoxin given yesterday. Level2.5 today. Recheck in a.m. -Overnight restarted amiodarone drip at 0.5 mg a minute. - Downtrended Troponins 0.27-->0.18 - Milrinone currently at 0.2 mcg/kg/min, vasopressin at 0.04 units/minute and Yung-Synephrine at 40 grams per minute. Norepinephrine drip and dobutamine drips discontinued overnight - 01/24 MRI- F/U results concern for myocarditis at the Otis-Adry catheter pulled -Continue low-dose aspirin 81 mg daily. Will hold if signs of active bleeding persist - Holding losartan 25 mg by mouth daily light of acute kidney injury/ vasopressor requirements Renal: Severe acute kidney injury requiring emergent Renal replacement therapy Acute intravascular volume overload Nonoliguric -- Strict I/Os - Nephrology following, Dr. Nicole - Hemodialysis per nephrology. -6500 cc yesterday - trend renal function and urine output. -350 cc urine output past 24 hours - Urine eosinophils negative. FEN/GI: Shock liver - elevated transaminases Morbid obesity with BMI greater than 40 Constipation Possible GI bleed - Remains NPO while in shock/possible GI bleed- Continue OGT to LIWS - Dietary consultation - Liver ultrasound revealed congested gallbladder. Rule out cholecystitis. - 01/22- F/U KUB - General downward trending LFTs - F/U hepatitis panel,HIV, LUCY -Replace electrolytes as clinically indicated - Consult GI for possible endoscopy when stable. Possibly will need anticoagulation. Heme/ID: Elevated PT/PTT secondary to acute liver failure Elevated ferritin Normocytic anemia Thrombocytopenia UTI? 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 post-viral cardiomyopathy could be a cause of new -onset NICM, but no evidence of active infection. INR currently 1.7. - Currently on piperacillin/tazobactam 2.25 g IV every 8. 0.75 g supplement with hemodialysis. Pertinent cultures 01/22 - blood cultures 2 -no growth 01/22 - sputum - pending 01/20 - UA - no growth -F/U HIT panel- thrombocytopenia most likely secondary to hepatic injury/DIC and weakly positive. LAST pending. Mentality recommend Argatroban drip hepatically dosed. Currently initiated. Endocrine: Hyperglycemia of critical illness -- SSI, medium scale with Novulog, every 4 hours -- TSH 1.98 on admission - Check hemoglobin A1c Prophylaxis: GI Prophylaxis -Pantoprazole 40 mg IV twice a day in light of possible bleeding DVT Prophylaxis -- SCDs -- Heparin infusion (Afib) held in light of possible GI bleeding Lines: - 01/20 left femoral arterial line - 01/20 left femoral triple lumen catheter - 01/20 right IJ 8.5 Fr Cordis introducer sheath - 01/20 right IJ 6 Fr PA Catheter - 01/20 left IJ 14 Fr 20cm VasCath Patient's spouse requested DNR status. Exhibits BMP signed. Withdrawal of care. Patient 1949. Hospital Course 51-year-old male with a history of hypertension, presents for evaluation of ongoing and worsening symptoms of shortness of breath 1 week duration associated with chest pressure. Patient states, around 3 AM he was having significant difficulty breathing and decided to come to the ED. This has been an ongoing problem for which patient was supposed to get 2-D echo evaluation as an outpatient. While in emergency department, patient was found to be in A. fib. He denies any previous history of atrial fibrillation, this was also asymptomatic without palpitations or chest pain. CTA was negative for PE and chest x-ray did not reveal any pulmonary congestion. Patient had minimally elevated cardiac enzyme and a mildly elevated BNP of 233. He was started on Cardizem drip for rate control of atrial fibrillation and was admitted to CICU. 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 01/20: Seen and examined initially around 09:30am. Patient with severe dyspnea, agitation, anxiety. In talking with the patient and his , he has a history that over the last approximately 1-2 years she's felt progressively short of breath and can no longer do the activities that he used to be able to do. He can only walk approximately 50 feet without getting winded. He denies any chest pain. He does say that he was diagnosed with sleep apnea approximately a year ago was placed on a BiPAP machine and this did in fact help some of his dyspnea, but he still had significant fatigue with walking even short distances. He and his both note that approximately back in August he had a flulike illness with significant muscle aches, malaise, headache. More recently , over the last 1-2 weeks he has had rapidly progressive shortness of breath, dyspnea on exertion, orthopnea, paroxysmal nocturnal dyspnea. This is presented also in the form of worsening anxiety is becoming very anxious about not being able to catch his breath. He presented to the emergency department yesterday with these complaints and was found to be in new onset atrial fibrillation and mildly hypoxemic. He was given 1 dose of diuretic. Overnight he was started on a diltiazem drip and became severely hypotensive with this. 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 He has been followed with quarterly LFTs which have always been in the mid 70s range per her. Otherwise he has not had any significant past medical history. He has a grandfather that of an RI in his 70s, and a grandmother that of a stroke in her 70s, but no other family history of cardiovascular disease. He has never smoked. He is a very rare drinker, and his confirms this that it is rare that he has any alcohol. He denies any illicit drug use. Review systems is negative unless previous stated. On my initial evaluation, the patient is restless, RASS +1, oriented but confused, CAM +. His extremities are almost mottled. He has severely delayed cap refill. His extremities are cool, very poorly perfused appearing. He has grossly elevated JVD above the level of mandible. I performed a bedside critical care ultrasound which demonstrated what appears to be severely reduced global LV function, very dilated IVC, no pericardial effusion. His troponins are only mildly elevated at 0.08 and this does not appear to be acute coronary syndrome. Highest on my differential at this point would be a new acute onset cardiomyopathy, likely nonischemic given his history. I immediately started the patient on dobutamine IV. I also martin a lactate which resulted at 7.4. I martin a ScVO2 which was 40%, suggestive of severe cardiogenic shock. I attempted arterial line placement, but the patient was too confused and the radial artery too poorly perfused for successful cannulation. At this point, the patient also had not made any urine throughout the day and was refusing raymundo catheter placement. Given his worsening shock and clinical decompensation, after discussion with his , decision was made to intubate the patient (see separate procedure note for details). After intubating the patient, I placed femoral arterial and central lines. He was then transferred to the CVICU where we placed PA catheter. The patient was given one attempt at forced diuresis with Bumex 4mg iv, diamox 500mg iv, diuril 500mg iv which did not produce any significant urine. Nephrology was emergently consulted and I placed emergent dialysis catheter. Starting PA numbers: RAP 17, PAP 38/23 (30), PCWP 23. CI 2.2, svo2 65% which has improved from prior 40%. Patient after being intubated was also severely hypoxemic with spo2 85% on 100% fio2. CXR demonstrates severe bilateral airspace disease consistent with severe pulmonary edema. I again discussed his care with Dr. Browne and we both agree that for his afib and rate control, digoxin (carefully dosed given renal dysfunction) would be the most appropriate therapy. We started with 0.5mg iv x 1 with a plan for a total of up to 1.25mg iv dosed in small doses as a load, and no maintenance therapy, with serial dig levels. 01/21: Patient remains on multiple pressors this a.m..PCWP 26, CI 4.2, PAP 44/ 26. Digoxin level I.5. Plans for dialysis today. Continued monitoring of elevated LFTs secondary to shock liver. 01/22: Afebrile. Overnight the patient developed A. fib RVR, heart rate 180s , required cardioversion 3 attempts, and was placed on amiodarone infusion. Amiodarone has been discontinued in the setting of elevated LFTs , though they are decreasing. The patient is noted to be thrombocytopenic with a platelet count today of 85, which is half of initial platelet count 3 days ago. This is most likely secondary to concomitant issues of shock liver and intrinsic hepatic disease of which the patient was being followed previously for suspected ZHANG. The patient was placed on a heparin infusion for A. fib .A Heparin platelet antibody test has been obtained this a.m.. The patient was unable to have MRI obtained yesterday secondary to hemodynamic instability. Vasopressors have been decreased over the last 24 hours. Plan for MRI this a.m. to rule out myocarditis. Blood and sputum cultures obtained this a.m. to rule out infectious process. Patient was noted to have possible UTI presumed by urine analysis, the patient has been prophylactically placed on Zosyn for empiric coverage. The patient underwent hemodialysis yesterday with 4 L removed. 01/23: Afebrile. Decreasing vasopressor requirements overnight. Remains in atrial fibrillation with RVR. Amiodarone initiated as other medications including beta gayle, calcium channel blockers and digoxin do not appear to be controlling heart rate with the present time. 01/24: Tmax 99.5. Currently 99.9. Patient appears to be in atrial flutter at the present time. Discuss with Dr. Browne will attempt cardioversion and 50 J. MRI of heart after hemodialysis. Will remove Otis Adry catheter and replace post procedure. Noted congestive gallbladder. Will need medicine scan at some point. HIT weakly positive. Subjective: 01/25: Plan for MRI cardiac and HIDA scan today. -6 L with hemodialysis yesterday. 350 cc urine output overnight. One bowel movement. Pt Condition on Discharge: Deteriorating Discharge Disposition: Discharge Home Discharge Instructions DIET: Follow Instructions for: As Tolerated, No Restrictions Speech Therapy-Diet Recommends: Other Activities you can perform: Regular-No Restrictions Jose Rafael Snyder MD Feb 16, 2017 07:06
== END 2017-01-25 19:51 | disposition expired ==
LOC: NEPE 04:39 → NEDA 06:35 → HCIS 09:18 → HIME 01-20 00:45 → HCVR 01-20 15:53
PROVIDERS: ADMIT Internal Medicine Critical Care Medicine; ATTEND Internal Medicine Critical Care Medicine
PROC: 0BH17EZ Insertion of Endotracheal Airway into Trachea, Via Natural or Artificial Opening (ICD-10-PCS; principal; 2017-01-20)
PROC: 06HY32Z Insertion of Monitoring Device into Lower Vein, Percutaneous Approach (ICD-10-PCS; 2017-01-20)
PROC: 5A1955Z Respiratory Ventilation, Greater than 96 Consecutive Hours (ICD-10-PCS; 2017-01-20)
PROC: 0T9B70Z Drainage of Bladder with Drainage Device, Via Natural or Artificial Opening (ICD-10-PCS; 2017-01-20)
PROC: 4A133B1 Monitoring of Arterial Pressure, Peripheral, Percutaneous Approach (ICD-10-PCS; 2017-01-20)
PROC: 4A133J1 Monitoring of Arterial Pulse, Peripheral, Percutaneous Approach (ICD-10-PCS; 2017-01-20)
PROC: 06HN33Z Insertion of Infusion Device into Left Femoral Vein, Percutaneous Approach (ICD-10-PCS; 2017-01-20)
PROC: 05HM33Z Insertion of Infusion Device into Right Internal Jugular Vein, Percutaneous Approach (ICD-10-PCS; 2017-01-20)
PROC: 4A133B3 Monitoring of Arterial Pressure, Pulmonary, Percutaneous Approach (ICD-10-PCS; 2017-01-20)
PROC: 05HN33Z Insertion of Infusion Device into Left Internal Jugular Vein, Percutaneous Approach (ICD-10-PCS; 2017-01-20)
PROC: 5A1D60Z (ICD-10-PCS; 2017-01-20)
PROC: 5A2204Z Restoration of Cardiac Rhythm, Single (ICD-10-PCS; 2017-01-22)
DX: I48.0 Paroxysmal atrial fibrillation (principal); I21.4 Non-ST elevation (NSTEMI) myocardial infarction; I50.23 Acute on chronic systolic (congestive) heart failure; J96.01 Acute respiratory failure with hypoxia; N17.0 Acute kidney failure with tubular necrosis; K72.00 Acute and subacute hepatic failure without coma; G93.41 Metabolic encephalopathy; A41.9 Sepsis, unspecified organism; Z68.41 Body mass index [BMI] 40.0-44.9, adult; I31.3 Pericardial effusion (noninflammatory); E87.4 Mixed disorder of acid-base balance; J98.11 Atelectasis; K92.2 Gastrointestinal hemorrhage, unspecified; R74.8 Abnormal levels of other serum enzymes; R57.0 Cardiogenic shock; I42.0 Dilated cardiomyopathy; Z99.81 Dependence on supplemental oxygen; E66.01 Morbid (severe) obesity due to excess calories; G47.33 Obstructive sleep apnea (adult) (pediatric); G47.00 Insomnia, unspecified; F41.9 Anxiety disorder, unspecified; K21.9 Gastro-esophageal reflux disease without esophagitis; I11.0 Hypertensive heart disease with heart failure; K59.00 Constipation, unspecified; Z82.49 Family history of ischemic heart disease and other diseases of the circulatory system; R73.9 Hyperglycemia, unspecified; R11.2 Nausea with vomiting, unspecified; R00.1 Bradycardia, unspecified; R79.82 Elevated C-reactive protein (CRP); K75.81 Nonalcoholic steatohepatitis (NASH); K74.60 Unspecified cirrhosis of liver; Z51.5 Encounter for palliative care; Z66 Do not resuscitate; Z82.3 Family history of stroke; I07.1 Rheumatic tricuspid insufficiency; I48.92 Unspecified atrial flutter; F32.9 Major depressive disorder, single episode, unspecified; D64.9 Anemia, unspecified
CPT/HCPCS: 31500; 36556; 36600; 71010; 71275; 74000; 75557; 76700; 76937; 78226; 80048; 80053; 80061; 80074; 80162; 80202; 80307; 81001; 81256; 82103; 82105; 82140; 82247; 82248; 82379; 82390; 82550; 82552; 82728; 82805; 82948; 83520; 83540; 83550; 83605; 83735; 83880; 84100; 84300; 84425; 84439; 84443; 84484; 85007; 85014; 85018; 85025; 85027; 85379; 85384; 85610; 85652; 85730; 86022; 86038; 86140; 86255; 86592; 86703; 87040; 87070; 87086; 87205; 87641; 90935; 92960; 93005; 93306; 94002; 94003; 94640; 94664; 96365; 96374; 96375; A9537; C9113; J0131; J0171; J0282; J0883; J1120; J1160; J1170; J1250; J1580; J1644; J1980; J2060; J2250; J2260; J2370; J2405; J2543; J2765; J3010; J3370; J7030; J7040; J7050; J7060; J7070; J7614; P9047; Q9967